=== PATIENT | male | born 1940 | race Hispanic/Latino ===

== ENCOUNTER 2018-08-24 10:14 | Inpatient (IN) | payer MEDICARE ==
[~2018-08-24] VITALS: Ht 170.2 cm; Wt 82.1 kg
--- OUTSIDE RECORDS SUMMARY | 2018-08-24 10:17 | XMS REPORT | Clinical Summary ---
Author Author [facility] Organization [facility] Address Unknown Phone Unavailable Care Team Providers Care Balance Assembler Name Role Phone Provider, Unknown PCP Unavailable Allergies No Known Allergies Medications End Date Status Medication Sig Dispensed Refills Start Date 04/14/2019 Active rosuvastatin (CRESTOR) 40 Take 1 tablet 90 tablet 3 201 MG tablet (40 mg total) 8 by mouth daily. 05/13/2019 Active clopidogrel (PLAVIX) 75 Take 1 tablet 30 tablet 11 201 mg tablet (75 mg total) 8 by mouth daily. Active lisinopril Take 1 tablet 30 tablet 0 (PRINIVIL,ZESTRIL) 10 mg (10 mg total) 8 tablet by mouth daily for 30 days. Active rivaroxaban (XARELTO) 20 Take 1 tablet 90 tablet 3 06/29/201 mg tablet (20 mg total) 8 by mouth daily. Take with food. Stop aspirin when Xarelto started. 06/28/2018 Discontinued rivaroxaban (XARELTO) 20 Take 1 tablet 30 tablet 1 201 mg tablet (20 mg total) 8 by mouth daily. Take with food. Stop aspirin when Xarelto started. 04/14/2018 Discontinued atorvastatin (LIPITOR) 80 Take 1 tablet 30 tablet 0 03/19/201 MG tablet (80 mg total) 8 by mouth nightly for 30 days. 05/12/2018 Discontinued lisinopril Take 1 tablet 30 tablet 0 (PRINIVIL,ZESTRIL) 10 mg (10 mg total) 8 tablet by mouth daily for 30 days. 04/14/2018 Discontinued aspirin 81 mg chewable Chew 1 tablet 30 tablet 0 tablet (81 mg total) 8 daily for 30 days. 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 Cerebrovascular accident (CVA) due to embolism of left middle cerebral 04/14/2018 artery Acute ischemic left MCA stroke 03/14/2018 s/p Mechanical thrombectomy M1 03/14/2018 Renal insufficiency, mild (acute vs chronic) 03/14/2018 Essential hypertension 03/14/2018 Encounters Care Team Description Date Type Specialty Lisset Jade 08/17/2018 Telephone Neurology Lisset Jade 08/10/2018 Telephone Neurology Agatha Loera MD Hyperlipidemia LDL goal <70 07/18/2018 Lab Lab Agatha Loera MD Hyperlipidemia LDL goal <70 (Primary Dx); Cerebrovascular accident (CVA) due to embolism of left middle cerebral artery (HCC); Essential hypertension 07/18/2018 Office Visit Neurology Lisset Jade 06/28/2018 Refill Neurology Lisset Jade 05/13/2018 Telephone Neurology Kenrick Blanchard MD Cv selective coronary angiography [84620 (CPT)] 05/11/2018 Surgery Procedural Cardiology Ronal Earl MD Coronary artery disease involving [place] coronary artery of [place] heart without angina pectoris (Primary Dx); Abnormal cardiovascular stress test 05/11/2018 Hospital Cardiology - Encounter 05/12/2018 Agatha Loera MD Hyperlipidemia LDL goal <70; Cerebrovascular accident (CVA) due to embolism of left middle cerebral artery 04/14/2018 Lab Lab Agatha Loera MD Cerebrovascular accident (CVA) due to embolism of left middle cerebral artery (Primary Dx); Essential hypertension; Hyperlipidemia LDL goal <70; Ataxia due to cerebrovascular disease 04/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 Office Visit Neurology Agatha Loera MD 04/14/2018 Orders Only Neurology Ronal Earl MD Ep loop recorder insertion [54056 (CPT)] 03/18/2018 Surgery Procedural Cardiology Agatha Pop MD 03/14/2018 Anesthesia Radiology Event Agatha Loera MD Patel, Amitkumar Natvarlal, MD 03/14/2018 Hospital Neurology - Encounter 03/19/2018 Wan Chavez MD Acute ischemic left MCA stroke (Primary Dx) 03/14/2018 Emergency Emergency Medicine N/A 03/14/2018 Intake Access after 08/23/2017 Social History Date Tobacco Use Types Packs/Day Years Used Never Smoker Smokeless Tobacco: Never Used Alcohol Use Drinks/Week oz/Week Comments Defer Sex Assigned at Date Recorded Not on file Industry Job Start Date Occupation Not on file Not on file Not on file Travel End Travel History Travel Start No recent travel history available. Last Filed Vital Signs Time Taken Vital Sign Reading 07/18/2018 10:02 AM CIVIL CADD TECHNICIAN Blood Pressure 143/79 07/18/2018 10:02 AM CIVIL CADD TECHNICIAN Pulse 83 05/12/2018 7:27 AM CDT Temperature 36.8 C (98.2 F) 05/12/2018 7:27 AM CDT Respiratory Rate 16 05/12/2018 8:30 AM CDT Oxygen Saturation 98% - Inhaled Oxygen - Concentration 07/18/2018 10:02 AM CIVIL CADD TECHNICIAN Weight 82.6 kg (182 lb) 07/18/2018 10:02 AM CIVIL CADD TECHNICIAN Height 170.2 cm (5' 7") 07/18/2018 10:02 AM CIVIL CADD TECHNICIAN Body Mass Index 28.51 Plan of Treatment Care Team Description Date Type Specialty Agatha Loera MD [address] [place], [place] [id number] 01/23/2019 Office Visit Neurology Health Maintenance Due Date Last Done Comments SHINGLES VACCINES (1 of 1989 2) PNEUMOCOCCAL 2004 POLYSACCHARIDE VACCINE AGE 65 AND OVER PNEUMOCOCCAL-13 2004 INFLUENZA VACCINE 04/06/2018 Implants Device Identifier Shelf Expiration Date Model / Serial / Lot Implanted Type Area Manufactur er [id number] / / Monitor Cardiac Implant Confirm Rx Cardiac N/A: N/A ST MAKI - [id number] Pacemakers MEDICAL Implanted: 03/18/2018 (Quantity not and INC on file) Related Products 01/03/2019 [id number] / / [id number] Device Vasclr Clsr Vasoactive Cardiovasc N/A: N/A Intstnl Peptd 6fr Angio-Seal - [facility] [id number] Implants Implanted: 03/14/2018 (Quantity not on file) [id number] / / Catheter Bln Otw 2.5mm 12mm Cardiovasc N/A: N/A [employer] Sprinter - [id number] [facility] - Implanted: 05/11/2018 (Quantity not Implants VASCULAR on file) [id number] / / Catheter 6fr X 13cm Antonia Plus Central N/A: N/A MICRO Intermediate - [id number] Venous VENTION Implanted: 03/14/2018 (Quantity not Catheters on file) [id number] / / Stent System 3.0 X 18mm Resolute Coronary N/A: N/A [employer] Salvador Otw Coronary - [id number] Stents [place] - Implanted: 05/11/2018 (Quantity not CARDIAC on file) RYHTYM MGMT [id number] / / Stent System 2.75 X 08mm Resolute Coronary N/A: N/A [employer] Spencer Otw Coronary - [id number] Stents [place] - Implanted: 05/11/2018 (Quantity not CARDIAC on file) RYHTYM MGMT [id number] / / Catheter Thrmbtmy Neuron Max 088 Surgical N/A: N/A PENUMBRA Str 6fr 80x4cm - [id number] Implants; INC Implanted: 03/14/2018 (Quantity not Expanders; on file) Extenders; Surgical Wires 02/04/2020 [id number] / / [id number] System Clsr Sut Meditd 6fr Perclose Surgical N/A: N/A HONG Proglide - [id number] Implants; VASCULAR Implanted: 05/11/2018 (Quantity not Expanders; DEVICES on file) Extenders; Surgical Wires 02/04/2020 [id number] / / [id number] System Clsr Sut Meditd 6fr Perclose Surgical N/A: N/A HONG Proglide - [id number] Implants; VASCULAR Implanted: 05/11/2018 (Quantity not Expanders; DEVICES on file) Extenders; Surgical Wires Procedures Comments Procedure Name Priority Date/Time Associated Diagnosis LIPID PANEL Routine 07/18/2018 Hyperlipidemia LDL goal 10:43 AM CIVIL CADD TECHNICIAN <70 HC COMPLETE BLD COUNT Routine 05/12/2018 W/AUTO DIFF 4:48 AM CDT ECG PRE/POST OP Routine 05/12/2018 4:15 AM CDT ZZESTIMATED GFR Routine 05/12/2018 4:00 AM CDT BASIC METABOLIC PANEL Routine 05/12/2018 4:00 AM CDT ECG 12-LEAD Routine 05/11/2018 11:57 AM CDT CONSULT CARDIAC REHAB Routine 05/11/2018 PHASE 1 10:38 AM CDT CV PCI PERCUTANEOUS Routine 05/11/2018 Abnormal cardiovascular CARDIAC ANGIOPLASTY 10:06 AM CDT stress test CV PCI PERCUTANEOUS Routine 05/11/2018 Abnormal cardiovascular CARDIAC ANGIOPLASTY 10:06 AM CDT stress test CV SELECTIVE CORONARY Routine 05/11/2018 Abnormal cardiovascular ANGIOGRAPHY 10:06 AM CDT stress test ACTIVATED CLOTTING TIME Routine 05/11/2018 9:08 AM CDT ACTIVATED CLOTTING TIME Routine 05/11/2018 8:58 AM CDT ECG 12-LEAD STAT 05/11/2018 7:09 AM CDT ZZESTIMATED GFR STAT 05/10/2018 9:23 AM CDT PARTIAL THROMBOPLASTIN STAT 05/10/2018 Atherosclerosis of [place] TIME (PTT) 9:23 AM CDT coronary artery with angina pectoris, unspecified whether [place] or transplanted heart Cerebral infarction due to thrombosis of left middle cerebral artery PROTHROMBIN TIME WITH INR STAT 05/10/2018 Atherosclerosis of [place] 9:23 AM CDT coronary artery with angina pectoris, unspecified whether [place] or transplanted heart Cerebral infarction due to thrombosis of left middle cerebral artery CBC HEMOGRAM STAT 05/10/2018 Atherosclerosis of [place] 9:23 AM CDT coronary artery with angina pectoris, unspecified whether [place] or transplanted heart Cerebral infarction due to thrombosis of left middle cerebral artery BASIC METABOLIC PANEL STAT 05/10/2018 Atherosclerosis of [place] 9:23 AM CDT coronary artery with angina pectoris, unspecified whether [place] or transplanted heart Cerebral infarction due to thrombosis of left middle cerebral artery CBC HEMOGRAM Routine 04/14/2018 Cerebrovascular accident 5:00 PM CDT (CVA) due to embolism of left middle cerebral artery LIPID PANEL Routine 04/14/2018 Hyperlipidemia LDL goal 5:00 PM CDT <70 EP LOOP RECORDER Routine 03/18/2018 INSERTION 11:39 AM CDT CARDIAC MRI STROKE EVAL W Routine 03/17/2018 CONTRAST 9:20 AM CDT POC GLUCOSE Routine 03/16/2018 11:27 AM CDT POC GLUCOSE Routine 03/16/2018 7:36 AM CDT POC GLUCOSE Routine 03/16/2018 4:02 AM CDT ZZESTIMATED GFR Routine 03/16/2018 2:36 AM CDT MAGNESIUM LEVEL Routine 03/16/2018 2:36 AM CDT BASIC METABOLIC PANEL Routine 03/16/2018 2:36 AM CDT CBC HEMOGRAM Routine 03/16/2018 1:55 AM CDT POC GLUCOSE Routine 03/15/2018 11:39 PM CDT URINE DRUGS OF ABUSE Routine 03/15/2018 SCREEN 11:18 PM CDT URINE DRUGS OF ABUSE STAT 03/15/2018 SCREEN 10:30 PM CDT URINALYSIS SCREEN AND STAT 03/15/2018 MICROSCOPY, WITH REFLEX 10:30 PM CDT TO CULTURE URINE CULTURE STAT 03/15/2018 10:30 PM CDT POC GLUCOSE Routine 03/15/2018 7:[address] STROKE BRAIN WO Routine 03/15/2018 CONTRAST 6:33 PM CDT MRI BRAIN WO CONTRAST Routine 03/15/2018 6:20 PM CDT POC GLUCOSE Routine 03/15/2018 4:16 PM CDT VITAMIN B12 LEVEL STAT 03/15/2018 2:00 PM CDT THYROID STIMULATING STAT 03/15/2018 HORMONE 2:00 PM CDT T4, FREE STAT 03/15/2018 2:00 PM CDT SEDIMENTATION RATE STAT 03/15/2018 2:00 PM CDT RHEUMATOID FACTOR STAT 03/15/2018 2:00 PM CDT LIPID PANEL STAT 03/15/2018 2:00 PM CDT HOMOCYSTINE, PLASMA STAT 03/15/2018 2:00 PM CDT HEMOGLOBIN A1C STAT 03/15/2018 2:00 PM CDT FOLATE LEVEL STAT 03/15/2018 2:00 PM CDT C-REACTIVE PROTEIN STAT 03/15/2018 2:00 PM CDT POC GLUCOSE Routine 03/15/2018 11:46 AM CDT ECHOCARDIOGRAM 2D Routine 03/15/2018 COMPLETE W MMODE SPECTRAL 10:05 AM CDT COLOR DOPPLER (98988) POC GLUCOSE Routine 03/15/2018 7:40 AM CDT POC GLUCOSE Routine 03/15/2018 3:44 AM CDT ZZESTIMATED GFR Routine 03/15/2018 1:12 AM CDT TYPE AND SCREEN Routine 03/15/2018 1:12 AM CDT BASIC METABOLIC PANEL Routine 03/15/2018 1:12 AM CDT HC COMPLETE BLD COUNT Routine 03/15/2018 W/AUTO DIFF 1:12 AM CDT POC GLUCOSE Routine 03/15/2018 12:13 AM CDT POC GLUCOSE Routine 03/14/2018 10:20 PM CDT IR 3D RECON SLICES Routine 03/14/2018 SNAPSHOTS RDMPS 9:21 PM CDT IR PERQ ART M-THROMBECT STAT 03/14/2018 NFS 9:21 PM CDT XR CHEST 1 VW PORTABLE STAT 03/14/2018 6:[address] ANGIOGRAM NECK W WO STAT 03/14/2018 CONTRAST 6:[address] ANGIOGRAM HEAD W WO STAT 03/14/2018 CONTRAST 6:07 PM CDT POC GLUCOSE Routine 03/14/2018 5:39 PM CDT ECG 12-LEAD STAT 03/14/2018 5:[address] STROKE BRAIN WO STAT 03/14/2018 CONTRAST 5:23 PM CDT ECG ED PRELIMINARY Routine 03/14/2018 INTERPRETATION 5:11 PM CDT [facility], E/M Routine 03/14/2018 30-74 MINUTES 5:11 PM CDT PROTHROMBIN TIME WITH INR STAT 03/14/2018 5:10 PM CDT ZZESTIMATED GFR STAT 03/14/2018 5:10 PM CDT TROPONIN STAT 03/14/2018 5:10 PM CDT COMPREHENSIVE METABOLIC STAT 03/14/2018 PANEL 5:10 PM CDT PARTIAL THROMBOPLASTIN STAT 03/14/2018 TIME (PTT) 5:10 PM CDT HC COMPLETE BLD COUNT STAT 03/14/2018 W/AUTO DIFF 5:10 PM CDT after 08/23/2017 Results * Lipid panel (07/18/2018 10:43 AM CIVIL CADD TECHNICIAN) Only the most recent of 3 results within the time period is included. Cholesterol 122 <200 mg/dL [facility] Triglycerides 197 (H) <150 mg/dL [facility] HDL cholesterol 38 (L) >40 mg/dL [facility] LDL cholesterol 62Comment: Result obtained by <100 mg/dL [facility] direct LDL measurement [facility] Lipid panel SeeBelow [facility] interpretation Comment: [facility]OSPITAL Total Cholesterol (mg/dL) <200 Desirable 200-239Borderline -high >=240High Triglycerides (mg/dL) <150 Normal 150-199Borderline -high 200-499High >=500Very high HDL Cholesterol (mg/dL) <40Low (male) <40Low (female) LDL Cholesterol (mg/dL) <100 Optimal 100-129Near or above optimal 130-159Borderline -high 160-189High >=190Very high Risk Catergories that modify LDL goals. Risk Catergories LDL goal (mg/dL) CHD and CHD risk equivalent<100 (10-year risk >20%) Multiple (2+) risk factors <130 (10-year risk=<20%) 0-1 risk factors <160 (<10-year risk) Defining levels of lipids in metabolic syndrome Triglycerides >=150 mg/dL HDL Cholesterol Men <40 mg/dL Women <40 mg/dL Non-HDL cholesterol is a second target for therapy in persons with high triglycerides (>=200 mg/dL) Specimen Plasma specimen Performing Organization Address City/State/[place] [address] PATHOLOGY AND GENOMIC MEDICINE [address] * CBC with platelet and differential (05/12/2018 4:48 AM CDT) Only the most recent of 3 results within the time period is included. WBC 6.04 4.50 - 11.00 k/uL [facility] DEPARTMENT OF PATHOLOGY AND GENOMIC MEDICINE RBC 4.15 (L) 4.40 - 6.00 m/uL [facility] DEPARTMENT OF PATHOLOGY AND GENOMIC MEDICINE HGB 12.4 (L) 14.0 - 18.0 g/dL [facility] DEPARTMENT OF PATHOLOGY AND GENOMIC MEDICINE HCT 37.8 (L) 41.0 - 51.0 % [facility] DEPARTMENT OF PATHOLOGY AND GENOMIC MEDICINE MCV 91.1 82.0 - 100.0 fL [facility] DEPARTMENT OF PATHOLOGY AND GENOMIC MEDICINE MCH 29.9 27.0 - 34.0 pg [facility] DEPARTMENT OF PATHOLOGY AND GENOMIC MEDICINE MCHC 32.8 31.0 - 37.0 g/dL [facility] DEPARTMENT OF PATHOLOGY AND GENOMIC MEDICINE RDW - SD 45.8 37.0 - 55.0 fL [facility] DEPARTMENT OF PATHOLOGY AND GENOMIC MEDICINE MPV 10.0 8.8 - 13.2 fL [facility] DEPARTMENT OF PATHOLOGY AND GENOMIC MEDICINE Platelet count 176 150 - 400 k/uL [facility] DEPARTMENT OF PATHOLOGY AND GENOMIC MEDICINE Nucleated RBC 0.00 /100 WBC [facility] DEPARTMENT OF PATHOLOGY AND GENOMIC MEDICINE Neutrophils 62.5 39.0 - 69.0 % [facility] DEPARTMENT OF PATHOLOGY AND GENOMIC MEDICINE Lymphocytes 25.2 25.0 - 45.0 % [facility] DEPARTMENT OF PATHOLOGY AND GENOMIC MEDICINE Monocytes 9.3 0.0 - 10.0 % [facility] DEPARTMENT OF PATHOLOGY AND GENOMIC MEDICINE Eosinophils 2.2 0.0 - 5.0 % [facility] DEPARTMENT OF PATHOLOGY AND GENOMIC MEDICINE Basophils 0.3 0.0 - 1.0 % [facility] DEPARTMENT OF PATHOLOGY AND GENOMIC MEDICINE Immature granulocytes 0.5Comment: "Immature 0.0 - 1.0 % [facility] DEPARTMENT OF granulocytes" (promyelocytes, PATHOLOGY AND myelocytes, metamyelocytes) GENOMIC MEDICINE Specimen Blood Performing Organization Address City/[facility] Phone Number [address] [address] PATHOLOGY AND GENOMIC MEDICINE * ECG Pre/Post Op (05/12/2018 4:15 AM CDT) Ventricular rate 56 [facility] MUSE Atrial rate 56 [facility] MUSE VA interval 152 [facility] QRSD interval 112 [facility] QT interval 422 [facility] QTC interval 407 [facility] MUSE QRS axis 1 -47 [facility] T wave axis -3 [facility] MUSE EKG impression Sinus bradycardia-Incomplete [facility] MUSE right bundle branch block-Left anterior fascicular block-Minimal voltage criteria for LVH, may be normal variant-Septal infarct (cited on or before 14-MAR-2018)-Abnormal ECG-In automated comparison with ECG of 11-MAY-2018 11:57,-No significant change was found- Performing Organization Address City/[facility] Cent[facility]ode Phone Number [facility] [address] [place] [address] * Estimated GFR (05/12/2018 4:00 AM CDT) Only the most recent of 5 results within the time period is included. GFR Non Af Amer 65 mL/min/1.73 m2 [facility] DEPARTMENT OF PATHOLOGY AND GENOMIC MEDICINE GFR Af Amer 78 mL/min/1.73 m2 [facility] DEPARTMENT OF Comment: PATHOLOGY AND Chronic kidney disease: <60 GENOMIC MEDICINE mL/min/1.73m2 Kidney failure: <15 mL/min/1.73m2 The estimated GFR is calculated from the IDMS-traceable Modification of Diet in Renal Disease Equation. The accuracy of the calculation is poor when the creatinine is normal. Calculated values >90 mL/min/1.73m2 are not reported. This equation has not been validated in children (<18 years), women, the elderly (>70 years), or ethnic groups other than Caucasians and Americans. Specimen Plasma specimen Performing Organization Address City/[facility] [place] [address] PATHOLOGY [facility] [employer] MEDICINE * Basic metabolic panel (05/12/2018 4:00 AM CDT) Only the most recent of 4 results within the time period is included. Sodium 139 135 - 148 mEq/L [facility] DEPARTMENT OF PATHOLOGY AND GENOMIC MEDICINE Potassium 4.1 3.5 - 5.0 mEq/L [facility] DEPARTMENT OF PATHOLOGY AND GENOMIC MEDICINE Chloride 105 98 - 112 mEq/L [facility] DEPARTMENT OF PATHOLOGY AND GENOMIC MEDICINE CO2 25 24 - 31 mEq/L [facility] DEPARTMENT OF PATHOLOGY AND GENOMIC MEDICINE Anion gap 9@ANIO 7 - 15 mEq/L [facility] DEPARTMENT OF PATHOLOGY AND GENOMIC MEDICINE BUN 16 8 - 23 mg/dL [facility] DEPARTMENT OF PATHOLOGY AND GENOMIC MEDICINE Creatinine 1.1 0.7 - 1.2 mg/dL [facility] DEPARTMENT OF PATHOLOGY AND GENOMIC MEDICINE Glucose 130 (H) 65 - 99 mg/dL [facility] DEPARTMENT OF PATHOLOGY AND GENOMIC MEDICINE Calcium 8.9 8.8 - 10.2 mg/dL [facility] DEPARTMENT OF PATHOLOGY AND GENOMIC MEDICINE Specimen Plasma specimen Performing Organization Address City/[facility] [place] [address] PATHOLOGY AND [employer] MEDICINE * ECG 12 lead (05/11/2018 11:57 AM CDT) Only the most recent of 3 results within the time period is included. Ventricular rate 50 [facility] Atrial rate 50 [facility] VA interval 172 [facility] QRSD interval 118 [facility] QT interval 450 [facility] QTC interval 410 [facility] P axis 1 63 [facility] QRS axis 1 -45 [facility] T wave axis 14 [facility] EKG impression Sinus bradycardia-Left [facility] anterior fascicular block-Left ventricular hypertrophy with QRS widening-Cannot rule out Septal infarct (cited on or before 14-MAR-2018)-T wave abnormality, consider lateral ischemia-Abnormal ECG-In automated comparison with ECG of 11-MAY-2018 07:09,-T wave inversion now evident in Anterior leads- Performing Organization Address City/State/Zipcode Phone Number [facility] [address] [place] [address] * Cv director of cardiac cath lab procedure (05/11/2018 10:06 AM CDT) Narrative Performed At [facility] Successful PCI to mid LAD with 3.0x18 mm Resolute Spencer BERNA followed by 2.75x8 mm Resolute Spencer BERNA to distal edge for small edge dissection See dictated op report for further details TITLE OF OPERATION: Percutaneous coronary intervention with medicated stent to the proximal and mid left anterior descending coronary artery. SURGEON: Dr. Arpit Blanchard. [employer] [employer] CONSULTANT: Dr. Agatha Beckham. 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 2.Abnormal cardiac functional study. 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 2.Abnormal cardiac functional study. ANESTHESIA: Conscious sedation with Versed and fentanyl. ESTIMATED BLOOD LOSS: 20 mL. COMPLICATIONS: None. OPERATIVE COURSE: After informed consent was obtained from the patient and with appropriate time-out procedures called, the patient was originally taken to the cardiac catheterization laboratory by my partner, Dr. Ronal Earl.Dr. aErl performed diagnostic coronary angiography using 5-Kyrgyz system.Once accomplished, I was called to the director of cardiac cath lab to assess for the possibility of percutaneous intervention.The pertinent findings of the catheterization were that the patient had a 90% to 95% stenosis of the LAD immediately after the take off of a medium sized diagonal.The LAD was of the wrap around variety.There was no other hemodynamically significant disease and given his functional study, this was felt to be the culprit stenosis.Accordingly and specifically because this had been discussed with the patient previously, we proceeded with intervention. The 5-Kyrgyz system was exchanged for a 6-Kyrgyz sheath.The patient received bivalirudin with subsequent ACT greater than 230 seconds prior to wire passage. The guiding catheter chosen was a 6-Kyrgyz XB LAD 3.5-sidehole variety. Preprocedural angiograms were taken in two views.A 0.014 extra support exchange length wire was then inserted across the stenosis and the lesion, predilated with a 2.5 x 12 mm balloon.The lesion was then successfully stented with a 3.0 x 18 mm Resolute Spencer medicated stent.The stent was properly placed, but postprocedural angiogram suggested a nonocclusive but nonetheless threatening dissection eccentrically in the superior aspect of the vessel at the distal end of the stenosis.Thus, a second stent, specifically a 2.75 x 8 mm Resolute Salvador stent was placed at the distal end of the first stent.The second stent corrected the problem with the dissection and provided full fit apposition to the vessel wall.Postprocedural angiograms confirmed proper stent placement. We did, however, postdilate with a 3 x 12 mm noncompliant balloon.The end result was no residual stenosis, no dissection and slightly less than MANDY III flow.This improved with 200 mcg of intracoronary sodium nitroprusside. At that point, I terminated the procedure and elected to not utilize a closure device. He was taken off catheterization table and transported to the PACU for sheath removal when ACT is less than 170 seconds.He was already admitted to the hospital and will be followed by Dr. Earl postoperatively.Overall, he tolerated the procedure well. Performing Organization Address [facility] Phone Number [facility] [address] [place] [address] * Cv director of cardiac cath lab procedure (05/11/2018 10:06 AM CDT) Narrative Performed At [facility] LM: normal LAD: mid 95% stenosis, first diagonal proximal 50% Ramus: no significant stenosis LCX: no significant stenosis RCA: mild plaque Performing Organization Address [facility] Phone Number [facility] [address] [place] [address] * Activated clotting time (05/11/2018 9:08 AM CDT) Only the most recent of 2 results within the time period is included. Activated clotting time 426 (H) 96 - 152 sec [facility] DEPARTMENT OF Comment: PATHOLOGY AND Meter ID: [id number] GENOMIC MEDICINE Microwave Radio Technician: Norberto Carlson Performing Organization Address [facility]ercode Phone Number [facility] DEPARTMENT OF [address] [place] [address] PATHOLOGY AND GENOMIC MEDICINE * Partial thromboplastin time, activated (05/10/2018 9:23 AM CDT) Only the most recent of 2 results within the time period is included. PTT 35.3 23.0 - 36.0 sec [facility] DEPARTMENT OF Comment: PATHOLOGY AND PTT therapeutic range for [facility] MEDICINE unfractionated heparin is 61.0-112.0 seconds which corresponds to Anti-Xa 0.3-0.7 U/ml. Specimen Blood Performing Organization Address [facility] Phone Number [address] [place] [address] PATHOLOGY AND GENOMIC MEDICINE * Prothrombin time with INR (05/10/2018 9:23 AM CDT) Only the most recent of 2 results within the time period is included. Prothrombin time 17.7 (H) 12.0 - 15.0 sec [facility] DEPARTMENT OF PATHOLOGY AND GENOMIC MEDICINE INR 1.4 [facility] [facility] DEPARTMENT OF Comment: PATHOLOGY AND The International Normalized [facility] MEDICINE Ratio (INR) is a therapeutic monitoring tool for patients who are stable on oral anticoagulant therapy. An INR of 2.0-3.0 is suggested for deep vein thrombosis/pulmonary embolism. Specimen Blood Performing Organization Address [facility] Phone Number [address] [place] [address] PATHOLOGY AND GENOMIC MEDICINE * CBC hemogram (05/10/2018 9:23 AM CDT) Only the most recent of 3 results within the time period is included. WBC 5.74 4.50 - 11.00 k/uL [facility] DEPARTMENT OF PATHOLOGY AND GENOMIC MEDICINE RBC 4.65 4.40 - 6.00 m/uL [facility] DEPARTMENT OF PATHOLOGY AND GENOMIC MEDICINE HGB 13.7 (L) 14.0 - 18.0 g/dL [facility] DEPARTMENT OF PATHOLOGY AND GENOMIC MEDICINE HCT 41.2 41.0 - 51.0 % [facility] DEPARTMENT OF PATHOLOGY AND GENOMIC MEDICINE MCV 88.6 82.0 - 100.0 fL [facility] DEPARTMENT OF PATHOLOGY AND GENOMIC MEDICINE MCH 29.5 27.0 - 34.0 pg [facility] DEPARTMENT OF PATHOLOGY AND GENOMIC MEDICINE MCHC 33.3 31.0 - 37.0 g/dL [facility] DEPARTMENT OF PATHOLOGY AND GENOMIC MEDICINE RDW - SD 43.8 37.0 - 55.0 fL [facility] PATHOLOGY AND GENOMIC MEDICINE MPV 9.8 8.8 - 13.2 fL [facility] DEPARTMENT OF PATHOLOGY AND GENOMIC MEDICINE Platelet count 202 150 - 400 k/uL [facility] DEPARTMENT OF PATHOLOGY AND GENOMIC MEDICINE Nucleated RBC 0.00 /100 WBC [facility] DEPARTMENT OF PATHOLOGY AND GENOMIC MEDICINE Specimen Blood Performing Organization Address City/[facility] Phone Number [place] [phone] [place] [address] PATHOLOGY AND GENOMIC MEDICINE * Cv electrophysiology procedure (03/18/2018 11:39 AM CDT) Narrative Performed At [employer] Successful loop recorder implant. Performing Organization Address City/[facility]/Zipcode Phone Number [employer] [address] [place] [address] * Cardiac mri stroke eval w contrast (03/17/2018 9:20 AM CDT) Narrative Performed At [facility] [employer] CMR Report Name:DES CHONG :1940 Scan Date: 2018-03-17 07:42:57 Electronically signed by Gavino Gonzalez M.D. 15:37:59 VITALS HEIGHT/WEIGHT --------- HEIGHT:67.00 in 170.18 cm WEIGHT:187.00 lbs 84.82 kgs BSA/BP --------- BSA:1.97 m^2 SYSTOLIC BP:120 mmHg DIASTOLIC BP:63 mmHg HEART RATE/RHYTHM --------- BASELINE HR:55 BPM HEART RHYTHM:Other SB SUMMARY LEFT VENTRICLE: LV wall thickness is normal. LV cavity size is normal. LV systolic function is regionally impaired. Quantitative LVEF 52%. There is no LV mass/thrombus. VIABILITY: There is limited transmural MA of the proximal to mid LAD territory. LV infarct/scar size is 19%. RIGHT VENTRICLE: RV wall thickness is normal. RV cavity size is normal. RV systolic function is normal. Quantitative RVEF 57%. There is no RV mass/thrombus. ATRIAL SEPTUM: There is lipomatous hypertrophy of the interatrial septum. The atrial septum is intact. A patent foramen ovale or small secundum atrial septal defect cannot be ruled out. LEFT ATRIUM: LA is mildly enlarged. There is no LA mass/thrombus. RIGHT ATRIUM: RA is mildly enlarged. There is no RA mass/thrombus. PERICARDIUM: Pericardium is normal. There is no pericardial effusion. There are no signs of increased intrapericardial pressures. PLEURAL EFFUSION: There is no pleural effusion. AORTIC VALVE: Aortic valve is trileaflet. There is no aortic regurgitation. There is no aortic stenosis. MITRAL VALVE: Mitral valve leaflets are normal. There is mild mitral valve calcification. There is no mitral regurgitation. There is no mitral stenosis. TRICUSPID VALVE: Tricuspid valve leaflets are normal. There is trivial tricuspid regurgitation. There is no tricuspid stenosis. PULMONIC VALVE: Pulmonic valve leaflets are normal. There is no pulmonic regurgitation. There is no pulmonic stenosis. AORTIC ROOT: The aortic root is normal. in size. CHEST: The thoracic aorta is of normal caliber without stenosis, aneurysm, or dissection. ABDOMEN: A portion of the infrarenal aorta is mildly ectatic. VENOUS: Normal pulmonary venous anatomy. OTHER FINDINGS: Hiatal hernia present. FINAL IMPRESSION: A. 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 NO INTRACARDIAC THROMBUS D. NO ASD/VSD/PFO CORE EXAM MEASUREMENTS --------- VOLUMETRIC ANALYSIS . . || | LV | Reference| RV | Reference| +------+-------+------+ +------+ + | EDV| ml|135 |(114-183) |123 |(102-193) | | ESV| ml| 65 |(26-69) | 53 |(16-73) | | CO | L/min | 3.78 || 3.78 || | MASS | g |114 |(110-175) ||| | SV | ml| 70 |(77-124)| 70 |(71-136)| | EF | % | 52 |(59-77) | 57 |(57-83) | '------+-------+------+ +------+ ' CARDIAC OUTPUT HR:54 BPM LV DIMENSIONS WALL THICKNESS - ANTEROSEPTAL:0.9 cm WALL THICKNESS - INFEROLATERAL:0.9 cm LV JOSY:5.3 cm LV ESD:3.5 cm LA DIMENSIONS (LV SYSTOLE) DIAMETER:4.3 cm AREA - 2 CHAMBER:23 cm^2 LENGTH - 2 CHAMBER:5.2 cm AREA - 4 CHAMBER:26 cm^2 LENGTH - 4 CHAMBER:5.9 cm VOLUME:98 ml AORTIC ROOT DIMENSIONS ANNULUS:2.1 cm SINUS OF VALSALVA:2.9 cm SINOTUBULAR JUNCTION:2.5 cm EXTRACELLULAR VOLUME MEASUREMENT HEMATOCRIT:37.7 % HEMATOCRIT DATE:2018-03-16 00:00:00 17 SEGMENT --------- . . | Segments | Wall Motion| Hyperenhancement | Stress Perfusion | Interpretation | + + + + +----- + | Base Anterior| Normal/Hyper | None ||| | Base Anteroseptal| Normal/Hyper | None ||| | Base Inferoseptal| Normal/Hyper | None ||| | Base Inferior| Normal/Hyper | None ||| | Base Inferolateral | Normal/Hyper | None ||| | Base Anterolateral | Normal/Hyper | None ||| | Mid Anterior | Normal/Hyper | None ||| | Mid Anteroseptal | Severe Hypo| 26-50% || Sub-Endo MA| | Mid Inferoseptal | Severe Hypo| 51-75% || Sub-Endo MA| | Mid Inferior | Normal/Hyper | None ||| | Mid Inferolateral| Normal/Hyper | None ||| | Mid Anterolateral| Normal/Hyper | None ||| | Apical Anterior| Normal/Hyper | 51-75% || Sub-Endo MA| | Apical Septal| Akinetic | 51-75% || Sub-Endo MA| | Apical Inferior| Akinetic | 26-50% ||| | Apical Lateral | Normal/Hyper | None ||| | [place] | Akinetic | 51-75% || Sub-Endo MA| + + + + +----- + | RV Segments| Wall Motion| Hyperenhancement | Stress Perfusion | Interpretation | + + + + +----- + | RV Basal Anterior| Normal/Hyper | None ||| | RV Basal Inferior| Normal/Hyper | None ||| | RV Mid | Normal/Hyper | None ||| | RV Apical| Normal/Hyper | None ||| ' + + + +----- ' FINDINGS INFARCT/SCAR SIZE:19 % SCAN INFO GENERAL --------- CONTRAST AGENT TYPE:[employer] LOT NUMBER:[id number] EXPIRATION DATE:2019-03-05 00:00:00 VOLUME ADMINISTERED:25 ml DOSAGE FOR 0.5M:0.15 mmol/kg SERUM CREATININE:1.1 sCr GFR:68.81 ml/min/1.73m^2 CREATININE DATE:2018-03-16 00:00:00 SEDATION SEDATION USED?:No PULSE SEQUENCE PULSE SEQUENCES:Single-Shot SSFP, IR GRE - Segmented, IR GRE - Single Shot, IR SSFP - Single Shot, Single Shot BB [place], SSFP Cine, Phase Contrast Velocity Mapping, 3D MRA w and w/o contrast SETUP TYPE:Both INPATIENT:Yes INCOMPLETE SCAN:No REASON(S) FOR SCAN:Stroke Evaluation REFERRING PHYSICIAN:WAN CHAVEZ TECHNOLOGIST:RT Nella[ , ]Dee Hoskins BILLING Patient Account [id number] CPT Codes 72624, 79486, 60466 ICD10 Codes I63.9, I25.5 Report generated by [employer], a product of [employer] Procedure Note Interface, Radiology Results In - 03/17/2018 3:38 PM CDT Hung Mcgee CMR Report Name: DES CHONG : 1940 Scan Date: 2018-03-17 07:42:57 Electronically signed by Gavino Gonzalez M.D. 15:37:59 VITALS HEIGHT/WEIGHT HEIGHT: 67.00 in 170.18 cm WEIGHT: 187.00 lbs 84.82 kgs BSA/BP BSA: 1.97 m^2 SYSTOLIC BP: 120 mmHg DIASTOLIC BP: 63 mmHg HEART RATE/RHYTHM BASELINE HR: 55 BPM HEART RHYTHM: Other SB SUMMARY LEFT VENTRICLE: LV wall thickness is normal. LV cavity size is normal. LV systolic function is regionally impaired. Quantitative LVEF 52%. There is no LV mass/thrombus. VIABILITY: There is limited transmural MA of the proximal to mid LAD territory. LV infarct/scar size is 19%. RIGHT VENTRICLE: RV wall thickness is normal. RV cavity size is normal. RV systolic function is normal. Quantitative RVEF 57%. There is no RV mass/thrombus. ATRIAL SEPTUM: There is lipomatous hypertrophy of the interatrial septum. The atrial septum is intact. A patent foramen ovale or small secundum atrial septal defect cannot be ruled out. LEFT ATRIUM: LA is mildly enlarged. There is no LA mass/thrombus. RIGHT ATRIUM: RA is mildly enlarged. There is no RA mass/thrombus. PERICARDIUM: Pericardium is normal. There is no pericardial effusion. There are no signs of increased intrapericardial pressures. PLEURAL EFFUSION: There is no pleural effusion. AORTIC VALVE: Aortic valve is trileaflet. There is no aortic regurgitation. There is no aortic stenosis. MITRAL VALVE: Mitral valve leaflets are normal. There is mild mitral valve calcification. There is no mitral regurgitation. There is no mitral stenosis. TRICUSPID VALVE: Tricuspid valve leaflets are normal. There is trivial tricuspid regurgitation. There is no tricuspid stenosis. PULMONIC VALVE: Pulmonic valve leaflets are normal. There is no pulmonic regurgitation. There is no pulmonic stenosis. AORTIC ROOT: The aortic root is normal. in size. CHEST: The thoracic aorta is of normal caliber without stenosis, aneurysm, or dissection. ABDOMEN: A portion of the infrarenal aorta is mildly ectatic. VENOUS: Normal pulmonary venous anatomy. OTHER FINDINGS: Hiatal hernia present. FINAL IMPRESSION: A. 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 NO INTRACARDIAC THROMBUS D. NO ASD/VSD/PFO CORE EXAM MEASUREMENTS VOLUMETRIC ANALYSIS . . | | | LV | Reference | RV | Reference | +------+-------+------+ +------+ + | EDV | ml | 135 | (114-183) | 123 | (102-193) | | ESV | ml | 65 | (26-69) | 53 | (16-73) | | CO | L/min | 3.78 | | 3.78 | | | MASS | g | 114 | (110-175) | | | | SV | ml | 70 | (77-124) | 70 | (71-136) | | EF | % | 52 | (59-77) | 57 | (57-83) | '------+-------+------+ +------+ ' CARDIAC OUTPUT HR: 54 BPM LV DIMENSIONS WALL THICKNESS - ANTEROSEPTAL: 0.9 cm WALL THICKNESS - INFEROLATERAL: 0.9 cm LV JOSY: 5.3 cm LV ESD: 3.5 cm LA DIMENSIONS (LV SYSTOLE) DIAMETER: 4.3 cm AREA - 2 CHAMBER: 23 cm^2 LENGTH - 2 CHAMBER: 5.2 cm AREA - 4 CHAMBER: 26 cm^2 LENGTH - 4 CHAMBER: 5.9 cm VOLUME: 98 ml AORTIC ROOT DIMENSIONS ANNULUS: 2.1 cm SINUS OF VALSALVA: 2.9 cm SINOTUBULAR JUNCTION: 2.5 cm EXTRACELLULAR VOLUME MEASUREMENT HEMATOCRIT: 37.7 % HEMATOCRIT DATE: 2018-03-16 00:00:00 17 SEGMENT . . | Segments | Wall Motion | Hyperenhancement | Stress Perfusion | Interpretation | + + + + + + | Base Anterior | Normal/Hyper | None | | | | Base Anteroseptal | Normal/Hyper | None | | | | Base Inferoseptal | Normal/Hyper | None | | | | Base Inferior | Normal/Hyper | None | | | | Base Inferolateral | Normal/Hyper | None | | | | Base Anterolateral | Normal/Hyper | None | | | | Mid Anterior | Normal/Hyper | None | | | | Mid Anteroseptal | Severe Hypo | 26-50% | | Sub- Endo MA | | Mid Inferoseptal | Severe Hypo | 51-75% | | Sub- Endo MA | | Mid Inferior | Normal/Hyper | None | | | | Mid Inferolateral | Normal/Hyper | None | | | | Mid Anterolateral | Normal/Hyper | None | | | | Apical Anterior | Normal/Hyper | 51-75% | | Sub- Endo MA | | Apical Septal | Akinetic | 51-75% | | Sub- Endo MA | | Apical Inferior | Akinetic | 26-50% | | | | Apical Lateral | Normal/Hyper | None | | | | [place] | Akinetic | 51-75% | | Sub- Endo MA | + + + + + + | RV Segments | Wall Motion | Hyperenhancement | Stress Perfusion | Interpretation | + + + + + + | RV Basal Anterior | Normal/Hyper | None | | | | RV Basal Inferior | Normal/Hyper | None | | | | RV Mid | Normal/Hyper | None | | | | RV Apical | Normal/Hyper | None | | | ' + + + + ' FINDINGS INFARCT/SCAR SIZE: 19 % SCAN INFO GENERAL CONTRAST AGENT TYPE: [employer] LOT NUMBER: [id number] EXPIRATION DATE: 2019-03-05 00:00:00 VOLUME ADMINISTERED: 25 ml DOSAGE FOR 0.5M: 0.15 mmol/kg SERUM CREATININE: 1.1 sCr GFR: 68.81 ml/min/1.73m^2 CREATININE DATE: 2018-03-16 00:00:00 SEDATION SEDATION USED?: No PULSE SEQUENCE PULSE SEQUENCES: Single-Shot SSFP, IR GRE - Segmented, IR GRE - Single Shot, IR SSFP - Single Shot, Single Shot BB [place], SSFP Cine, Phase Contrast Velocity Mapping, 3D MRA w and w/o contrast SETUP TYPE: Both INPATIENT: Yes INCOMPLETE SCAN: No REASON(S) FOR SCAN: Stroke Evaluation REFERRING PHYSICIAN: WAN CHAVEZ TECHNOLOGIST: Mega Andujar, RT[ , ]Dee Hoskins BILLING Patient Account [id number] CPT Codes 18729, 01202, 12640 ICD10 Codes I63.9, I25.5 Report generated by [employer], a product of [employer] Performing Organization Address City/State/Zipcode Phone Number [facility] [address] [place] [address] * POC glucose (03/16/2018 11:27 AM CDT) Only the most recent of 12 results within the time period is included. POC glucose 154 (H) 65 - 99 mg/dL [facility] DEPARTMENT OF Comment: PATHOLOGY AND [facility] Notified RN [employer] MEDICINE Meter ID: [id number] Microwave Radio Technician: Sujit Johnsonena Performing Organization Address [facility] [place] [address] PATHOLOGY AND GENOMIC MEDICINE * Magnesium level (03/16/2018 2:36 AM CDT) Magnesium 2.1 1.6 - 2.4 mg/dL [facility] DEPARTMENT OF PATHOLOGY AND GENOMIC MEDICINE Specimen Plasma specimen Performing Organization Address [facility] [place] [address] PATHOLOGY AND GENOMIC MEDICINE * Urine drugs of abuse screen (03/15/2018 11:18 PM CDT) Only the most recent of 2 results within the time period is included. Amphetamine screen, urine Negative [facility] DEPARTMENT OF PATHOLOGY AND GENOMIC MEDICINE Barbiturate screen, urine Negative [facility] DEPARTMENT OF PATHOLOGY AND GENOMIC MEDICINE Benzodiazepine screen, Negative [facility] DEPARTMENT OF urine PATHOLOGY AND GENOMIC MEDICINE Cannabinoid screen, urine Negative [facility] DEPARTMENT OF PATHOLOGY AND GENOMIC MEDICINE Cocaine screen, urine Negative [facility] DEPARTMENT OF PATHOLOGY AND GENOMIC MEDICINE Methadone metabolite Negative [facility] DEPARTMENT OF (EDDP), urine PATHOLOGY AND GENOMIC MEDICINE Opiates screen, urine Negative [facility] DEPARTMENT OF PATHOLOGY AND GENOMIC MEDICINE Oxycodone screen, urine Negative [facility] DEPARTMENT OF PATHOLOGY AND GENOMIC MEDICINE Phencyclidine screen, Negative [facility] DEPARTMENT OF urine PATHOLOGY AND GENOMIC MEDICINE Tricyclic screen, urine Negative [facility] DEPARTMENT OF Comment: PATHOLOGY AND Drug screen minimum GENOMIC MEDICINE concentration of detectability Amphetamines 1000 ng/mL Barbiturates 200 ng/mL Benzodiazepines 300 ng/mL Cocaine 300 ng/mL Methadone 300 ng/mL Opiates 300 ng/mL Oxycodone 300 ng/mL Phencyclidine 25 ng/mL Cannabinoids 50 ng/mL Tricyclics 1000 ng/mL Negative test results indicates presumptive evidence of lack of clinically significant drug concentration in this urine specimen. Positive test results are presumptive evidence of clinically significant drug concentration in this urine specimen. Testing performed for medical purposes only. Specimen Urine Performing Organization Address [facility] [place] [address] PATHOLOGY AND GENOMIC MEDICINE * Urinalysis screen and microscopy, with reflex to culture (03/15/2018 10:30 PM CDT) Specimen site Clean catch [facility] DEPARTMENT OF PATHOLOGY AND GENOMIC MEDICINE Color, UA Straw [facility] DEPARTMENT OF PATHOLOGY AND GENOMIC MEDICINE Appearance, UA Clear [facility] DEPARTMENT OF PATHOLOGY AND GENOMIC MEDICINE Specific gravity, UA 1.018 1.001 - 1.035 [facility] DEPARTMENT OF PATHOLOGY AND GENOMIC MEDICINE pH, UA 6.0 5.0 - 8.5 [facility] DEPARTMENT OF PATHOLOGY AND GENOMIC MEDICINE Protein, UA Negative Negative [facility] DEPARTMENT OF PATHOLOGY AND GENOMIC MEDICINE Glucose, UA Negative Negative [facility] DEPARTMENT OF PATHOLOGY AND GENOMIC MEDICINE Ketones, UA Negative Negative [facility] DEPARTMENT OF PATHOLOGY AND GENOMIC MEDICINE Bilirubin, UA Negative Negative [facility] DEPARTMENT OF PATHOLOGY AND GENOMIC MEDICINE Blood, UA Negative Negative [facility] DEPARTMENT OF PATHOLOGY AND GENOMIC MEDICINE Nitrite, UA Negative Negative [facility] DEPARTMENT OF PATHOLOGY AND GENOMIC MEDICINE Urobilinogen, UA <2.0 <2.0 [facility] DEPARTMENT OF PATHOLOGY AND GENOMIC MEDICINE Leukocyte esterase, UA Negative Negative [facility] DEPARTMENT OF PATHOLOGY AND GENOMIC MEDICINE Epithelial cells, UA <1 /HPF [facility] DEPARTMENT OF PATHOLOGY AND GENOMIC MEDICINE WBC, UA None seen 0 - 1 /HPF [facility] DEPARTMENT OF PATHOLOGY AND GENOMIC MEDICINE RBC, UA 1 0 - 5 /HPF [facility] DEPARTMENT OF PATHOLOGY AND GENOMIC MEDICINE Bacteria, UA None seen None seen [facility] DEPARTMENT OF PATHOLOGY AND GENOMIC MEDICINE Yeast, UA None seen [facility] DEPARTMENT OF PATHOLOGY AND GENOMIC MEDICINE Yeast with pseudohyphae, None seen [facility] DEPARTMENT OF UA PATHOLOGY AND GENOMIC MEDICINE Specimen Urine Performing Organization Address City/[facility]/Zipcode Phone Number [place] [phone] PATHOLOGY AND GENOMIC MEDICINE * Urine culture (03/15/2018 10:30 PM CDT) Urine culture SEE COMMENTComment: [facility] DEPARTMENT OF Bacteriuria screen negative. PATHOLOGY AND GENOMIC MEDICINE Performing Organization Address City/[facility]/Zipcode Phone Number [place] [phone] PATHOLOGY AND GENOMIC MEDICINE * CT Stroke Brain Wo Contrast (03/15/2018 6:33 PM CDT) Only the most recent of 2 results within the time period is included. Narrative Performed At EXAMINATION:CT STROKE BRAIN WO CONTRAST [facility] CLINICAL HISTORY:[id number] HR POST TPA IMAGING COMPARISON:MRI of the brain dated March 15, [address] images were acquired using low-dose technique with automated exposure control. IMPRESSION: Evolving recent ischemia in the left MCA territory in the left insula and left basal ganglia with no interval progression and no associated mass effect or hemorrhagic conversion. [id number] Procedure Note Hm Interface, Radiology Results Incoming - 03/15/2018 6:42 PM CDT EXAMINATION: CT STROKE BRAIN WO CONTRAST CLINICAL HISTORY: Stroke 24 HR POST TPA IMAGING COMPARISON: MRI of the brain dated March 15, [address] images were acquired using low-dose technique with automated exposure control. IMPRESSION: Evolving recent ischemia in the left MCA territory in the left insula and left basal ganglia with no interval progression and no associated mass effect or hemorrhagic conversion. [id number] Performing Organization Address City/State/Zipcode Phone Number [facility] [address] [place] [address] * MRI Brain Wo Contrast (03/15/2018 6:20 PM CDT) Narrative Performed At [facility] Study:MRI BRAIN WO CONTRAST History:Stroke COMPARISON:CT brain same date TECHNIQUE: Precontrast Sagittal, coronal, axial T1, T2, FLAIR, gradient, diffusionMR images of the brain performed. FINDINGS: The moderate-sized acute infarct involving the left lentiform nucleus, the cortex surrounding the left anterior sylvian fissure and left frontal mancia radiata. Small foci of acute ischemia present in the left parietal lobe. Mild changes of chronic small vessel ischemic disease present in the bilateral white matter. No acute hemorrhage, midline shift, hydrocephalus, or extra axial collections. Orbits are unremarkable. No significant fluid signal present in the mastoid air cells and paranasal sinuses. IMPRESSION: Moderate size left MCA distribution acute/subacute infarct without acute hemorrhage or significant mass effects. [id number] Procedure Note Interface, Radiology Results - 03/15/2018 7:11 PM CDT Study:MRI BRAIN WO CONTRAST History:Stroke COMPARISON:CT brain same date TECHNIQUE: Precontrast Sagittal, coronal, axial T1, T2, FLAIR, gradient, diffusion MR images of the brain performed. FINDINGS: The moderate-sized acute infarct involving the left lentiform nucleus, the cortex surrounding the left anterior sylvian fissure and left frontal mancia radiata. Small foci of acute ischemia present in the left parietal lobe. Mild changes of chronic small vessel ischemic disease present in the bilateral white matter. No acute hemorrhage, midline shift, hydrocephalus, or extra axial collections. Orbits are unremarkable. No significant fluid signal present in the mastoid air cells and paranasal sinuses. IMPRESSION: Moderate size left MCA distribution acute/subacute infarct without acute hemorrhage or significant mass effects. [facility]-[id number] Performing Organization Address [facility]/[place] [address] * Homocystine, plasma (03/15/2018 2:00 PM CDT) Homocysteine 10.9 0.0 - 15.0 umol/L [facility] DEPARTMENT OF Comment: PATHOLOGY AND The risk for coronary vascular GENOMIC MEDICINE disease increases progressively with homocysteine concentration.A 3.4 times greater risk is associated with a homocysteine concentration of greater than 15.8 umol/L as compared to a concentration below 14.1 umol/L. Specimen Plasma specimen Performing Organization Address [facility]/[place] [address] PATHOLOGY AND GENOMIC MEDICINE * Sedimentation rate (03/15/2018 2:00 PM CDT) Sedimentation rate 12 (H) 0 - 10 mm/hr [facility] DEPARTMENT OF PATHOLOGY AND GENOMIC MEDICINE Specimen Blood Performing Organization Address [facility] [place] [address] PATHOLOGY AND GENOMIC MEDICINE * Rheumatoid factor (03/15/2018 2:00 PM CDT) Rheumatoid factor <10 0 - 13 IU/mL [facility] DEPARTMENT OF PATHOLOGY AND GENOMIC MEDICINE Specimen Plasma specimen Performing Organization [facility] [place] [address] PATHOLOGY AND GENOMIC MEDICINE * C-reactive protein (03/15/2018 2:00 PM CDT) CRP 0.39 0.00 - 0.50 mg/dL [facility] DEPARTMENT OF PATHOLOGY AND GENOMIC MEDICINE Specimen Plasma specimen Performing Organization Address [facility] [place] [address] PATHOLOGY AND [facility] MEDICINE * Thyroid stimulating hormone (03/15/2018 2:00 PM CDT) TSH 1.75 0.27 - 4.20 uIU/mL [facility] DEPARTMENT OF PATHOLOGY AND GENOMIC MEDICINE Specimen Plasma specimen Performing Organization Address [facility]/[place] [address] PATHOLOGY AND GENOMIC MEDICINE * T4, free (03/15/2018 2:00 PM CDT) T4, free 1.1 0.9 - 1.7 ng/dL [facility] DEPARTMENT OF PATHOLOGY AND GENOMIC MEDICINE Specimen Plasma specimen Performing Organization Address [facility] [place] [address] PATHOLOGY AND [facility] MEDICINE * Hemoglobin A1c (03/15/2018 2:00 PM CDT) Hemoglobin A1C 6.9 (H) 4.0 - 5.6 % [facility] DEPARTMENT OF Comment: PATHOLOGY AND HbA1c cutoffs for diagnosing [facility] diabetes: 4.0% - 5.6%=normal 5.7% - 6.4%=increased risk for diabetes (prediabetes) >=6.5%=diabetes Goals for glycemic control (ADA 2016) < 7.0%Target for non adults with diabetes. More or less stringent targets may be appropriate for individual patients. <7.5% Target for Children and adolescents with type 1 diabetes. Specimen Blood Performing Organization Address [facility] Phone Number [facility] [place] [address] PATHOLOGY AND [facility] * Folate level (03/15/2018 2:00 PM CDT) Folate 16.9 4.8 - 24.2 ng/mL [facility] DEPARTMENT OF PATHOLOGY AND GENOMIC MEDICINE Specimen Serum Performing Organization Address [facility] [place] [address] PATHOLOGY AND [facility] MEDICINE * Vitamin B12 level (03/15/2018 2:00 PM CDT) Vitamin B12 493 211 - 946 pg/mL [facility] DEPARTMENT OF Comment: PATHOLOGY AND Significant overlap exists GENOMIC MEDICINE between normal and deficiency states. However, most patients with deficiencies will have Serum B12 <200 pg/mL. Specimen Serum Performing Organization Address [facility] [place] [address] PATHOLOGY AND [facility] MEDICINE * Echocardiogram complete w contrast and 3D if needed (03/15/2018 10:05 AM CDT) Narrative Performed At [facility] Echocardiography Report [address] [place] [address], [place] [address] Pat.Name:Yanet CHONG.ID:[id number] .Date: 03/15/2018 Refer.MD:AGATHA LOERA MD Exam Time: 8:31:00 AIDENtcaridad Type:Routine Echo Height:69inWeight:187lb BSA: 2.01 m2 DOBAge:1940,77Y Sex: MALEBP:118/65 HR:46 bpmSonogrphr: CARMITA Alejo Pat. Stat.:Inpatient Room:[place] [address] Study Status:Final Echo Event ID:[id number] Order ID:[id number] Reason for Study:Stroke, suspected cardiac etiology Procedures:2D Echo, Colorflow Doppler, Strain, Portable SUMMARY: Normal biventricular chamber size and systolic function Mild LA enlargement. No hemodynamically significant valvular pathology. Normal intra-cardiac filling pressures FINDINGS: LV: LV size is normal. LV EF is normal. Difficult to assess regionalwall motion; however it appears grossly normal. EstimatedEF is 60-64%. RV: RV size is normal. RV systolic function is normal. LA: LA volume is mildly enlarged. RA: RA volume is mildly enlarged. AO: Aortic root diameter is normal. ANDIE: There is an anterior space consistent with a prominent epicardialfat pad. IAS:Interatrial septum is thickened consistent with lipomatous hypertrophy. AV: No structural AV abnormalities noted. A trace of aortic regurgitation. MV: No structural MV abnormalities noted. A trace of mitral regurgitation. PV: No structural PV abnormalities noted. TV: No structural TV abnormalities noted. Schofield: Normal diastolic function. Other:Insufficient TR jet to estimate PA systolic pressure. MEASUREMENTS: 2D Parasternal [place] LVOT 2.1 cmLA Ds4.6 cm LVIDd5.6 cmIndex2.8 cm/m Ao An1.9 cm LVIDs2.9 cmAo Rtd 3.3 cm Index1.7 cm/m LV%fs 48.7 % LV Wrsy776.7 g(122-174) IVSd 0.8 cmLVM Index 88.4 g/m2 LVPWd0.9 cmRWT0.3 LA Sng Plane LA Area 23.4 cm2(8.8-23.4) LA Vol81.2 ml Index40.4 ml/m LA LngAx 5.6 cm DOPPLER LVOT Stroke Vol LVOT 2.1 cmLVOT CO3.7 l/min LVOT TVI22.2 cmLVOT CI1.8 l/m/m2 LVOT Tm342 esbyZO04 bpm LVOT SV 76.8 ml Signed 03/15/2018 11:07 AM Eduardo Osorio MD Procedure Note Interface, Radiology Results In - 03/15/2018 11:08 AM CDT Echocardiography Report [address] [place] [address] Pat.Name: DES CHONG Pat.ID: [id number] .Date: 03/15/2018 Refer.MD: AGATHA LOERA MD Exam Time: 8:31:00 AM Study Type:Routine Echo Height: 69in Weight: 187lb BSA: 2.01 m2 Age: 11 1940,77Y Sex: MALE BP: 118/65 HR: 46 bpm Sonogrphr: CARMITA Alejo Pat. Stat.:Inpatient Room: [place] [address] Study Status:Final Echo Event ID:[id number] Order ID: [id number] Reason for Study:Stroke, suspected cardiac etiology Procedures:2D Echo, Colorflow Doppler, Strain, Portable SUMMARY: Normal biventricular chamber size and systolic function Mild LA enlargement. No hemodynamically significant valvular pathology. Normal intra-cardiac filling pressures FINDINGS: LV: LV size is normal. LV EF is normal. Difficult to assess regional wall motion; however it appears grossly normal. Estimated EF is 60-64%. RV: RV size is normal. RV systolic function is normal. LA: LA volume is mildly enlarged. RA: RA volume is mildly enlarged. AO: Aortic root diameter is normal. ANDIE: There is an anterior space consistent with a prominent epicardial fat pad. IAS: Interatrial septum is thickened consistent with lipomatous hypertrophy. AV: No structural AV abnormalities noted. A trace of aortic regurgitation. MV: No structural MV abnormalities noted. A trace of mitral regurgitation. PV: No structural PV abnormalities noted. TV: No structural TV abnormalities noted. [place]: Normal diastolic function. Other: Insufficient TR jet to estimate PA systolic pressure. MEASUREMENTS: 2D Parasternal [place] LVOT 2.1 cm LA Ds 4.6 cm LVIDd 5.6 cm Index 2.8 cm/m Ao An 1.9 cm LVIDs 2.9 cm Ao Rtd 3.3 cm Index 1.7 cm/m LV%fs 48.7 % LV Mass 177.7 g (122-174) IVSd 0.8 cm LVM Index 88.4 g/m2 LVPWd 0.9 cm RWT 0.3 LA Sng Plane LA Area 23.4 cm2 (8.8-23.4) LA Vol 81.2 ml Index 40.4 ml/m LA LngAx 5.6 cm DOPPLER LVOT Stroke Vol LVOT 2.1 cm LVOT CO 3.7 l/min LVOT TVI 22.2 cm LVOT CI 1.8 l/m/m2 LVOT Tm 342 msec HR 48 bpm LVOT SV 76.8 ml Signed 03/15/2018 11:07 AM Eduardo Osorio MD Performing Organization Address City/State/Zipcode Phone Number [facility] [address] [place] [address] * Type and screen (03/15/2018 1:12 AM CDT) ABO grouping A [facility] DEPARTMENT OF PATHOLOGY AND GENOMIC MEDICINE Rh type POS [facility] DEPARTMENT OF PATHOLOGY AND GENOMIC MEDICINE Antibody screen (gel) NEG [facility] DEPARTMENT OF PATHOLOGY AND GENOMIC MEDICINE Specimen Blood Performing Organization Address [facility] Phone Number [facility] DEPARTMENT OF [address] [place] [address] PATHOLOGY AND GENOMIC MEDICINE * IR 3D Recon Slices Snapshots RDMPS (03/14/2018 9:21 PM CDT) Narrative Performed At Non-Reportable/No report needed. 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 2.Contrast staining of the left basal ganglion region, compatible with an established infarct core.Given the successful recanalization, strict blood pressure control to prevent post-reperfusion, hemorrhagic transformation of established cerebral infarction tissue is recommended. Narrative Performed At PROCEDURE:IR PERQ ART M-THROMBECT NFS [facility] This exam was performed in [facility]. Fluoro time:15.6 minutes Dose: 2791 mGy IMPRESSION: A complete separate report will be issued by the performing physician. [id number] Procedure Note Interface, Radiology Results Incoming - 03/16/2018 8:52 AM CDT PROCEDURE: IR PERQ ART M-THROMBECT NFS This exam was performed in [facility]. Fluoro time: 15.6 minutes Dose: 2791 mGy IMPRESSION: A complete separate report will be issued by the performing physician. [id number] Performing Organization Address [facility] Phone Number [facility] [address] [place] [address] * XR Chest 1 Vw Portable (03/14/2018 6:24 PM CDT) Narrative Performed At EXAMINATION:XR CHEST 1 VW PORTABLE [facility] CLINICAL HISTORY:Chest Pain COMPARISON:None IMPRESSION: Hypoinflation Minimal patchy bibasilar atelectasis Tiny right costophrenic angle effusion. Cardiomegaly with vascular ectasia. No infiltrate or congestion. No pneumothorax Single view chest [id number] Procedure Note Hm Interface, Radiology Results Incoming - 03/14/2018 6:32 PM CDT EXAMINATION: XR CHEST 1 VW PORTABLE CLINICAL HISTORY: Chest Pain COMPARISON: None IMPRESSION: Hypoinflation Minimal patchy bibasilar atelectasis Tiny right costophrenic angle effusion. Cardiomegaly with vascular ectasia. No infiltrate or congestion. No pneumothorax Single view chest [id number] Performing Organization Address [facility] Phone Number [facility] [address] [place] [address] * CTA Neck W Wo Contrast (03/14/2018 6:08 PM CDT) Narrative Performed At EXAMINATION:CT ANGIOGRAM NECK W WO CONTRAST [facility] CLINICAL HISTORY:STROKE COMPARISON:None. TECHNIQUE: Neck CTA with multi-planar MIP and volumetric rendering (3D) after bolus intravenous iodinated contrast administration was performed. All CT images were acquired using low-dose technique with automated exposure control. FINDINGS: Common origin of the left common carotid artery and brachiocephalic artery. Atherosclerosis of the aortic arch and origin of the left clavian artery without significant narrowing. Minimal calcified atherosclerosis without significant stenosis or occlusion along bilateral common, internal, and external carotid arteries. There is no significant stenosis according to the NASCET criteria (0%). Moderate narrowing of the origin of the left vertebral artery secondary to atherosclerosis. No significant narrowing of the right vertebral artery.The leftvertebral artery is dominant. Evaluation of the visualized intracranial circulation demonstrates occlusive thrombus of the distal left middle cerebral artery M1 and proximal M2 segment. Partially enhancing 12 mm right thyroid nodule. 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 No other focal stenosis of the cervical carotid or vertebral arteries. No aneurysm. Partially enhancing 12 mm right thyroid nodule. Nonemergent thyroid ultrasound can be performed for further assessment. Occlusion of the distal left middle cerebral artery M1 and proximal M2 segment, compatible with thrombus, as noted on CT head same day. Findings were discussed with and acknowledged by WAN PARIKH at 03/14/2018 6:16 PM who verbalized understanding. [id number] Procedure Note Hm Interface, Radiology Results Incoming - 03/14/2018 6:19 PM CDT EXAMINATION: CT ANGIOGRAM NECK W WO CONTRAST CLINICAL HISTORY: STROKE COMPARISON: None. TECHNIQUE: Neck CTA with multi-planar MIP and volumetric rendering (3D) after bolus intravenous iodinated contrast administration was performed. All CT images were acquired using low-dose technique with automated exposure control. FINDINGS: Common origin of the left common carotid artery and brachiocephalic artery. Atherosclerosis of the aortic arch and origin of the left clavian artery without significant narrowing. Minimal calcified atherosclerosis without significant stenosis or occlusion along bilateral common, internal, and external carotid arteries. There is no significant stenosis according to the NASCET criteria (0%). Moderate narrowing of the origin of the left vertebral artery secondary to atherosclerosis. No significant narrowing of the right vertebral artery.The left vertebral artery is dominant. Evaluation of the visualized intracranial circulation demonstrates occlusive thrombus of the distal left middle cerebral artery M1 and proximal M2 segment. Partially enhancing 12 mm right thyroid nodule. 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 No other focal stenosis of the cervical carotid or vertebral arteries. No aneurysm. Partially enhancing 12 mm right thyroid nodule. Nonemergent thyroid ultrasound can be performed for further assessment. Occlusion of the distal left middle cerebral artery M1 and proximal M2 segment, compatible with thrombus, as noted on CT head same day. Findings were discussed with and acknowledged by WAN PARIKH at 03/14/2018 6:16 PM who verbalized understanding. [id number] Performing Organization Address City/State/Zipcode Phone Number [facility] [address] [place] [address] * CTA Head W Wo Contrast (03/14/2018 6:07 PM CDT) Narrative Performed At EXAMINATION: CT ANGIOGRAM HEAD W WO CONTRAST [facility] CLINICAL HISTORY: STROKE COMPARISON:None TECHNIQUE:Imaging of the intracranial circulation was obtained from the skull base to the vertex during the arterial phase of enhancement. Postprocessing was performed with MIP multiplanar and 3D reconstructed images.CT imaging was performed with iterative reconstruction technique and/or automated exposure control to reduce radiation dose. FINDINGS: Occlusive thrombus in the distal left middle cerebral artery M1 and proximal M2 segments, as noted on CT head performed same day. There is reconstitution of flow of some of the distal middle cerebral artery M2 and M3 branches likely via collaterals. No focal stenosis of the anterior cerebral arteries or right middle cerebral artery. No focal stenosis of the vertebral, basilar, or posterior cerebral arteries. No aneurysm. IMPRESSION: 1. Occlusive thrombus of the distal left middle cerebral artery M1 and proximal M2 segments, as noted on CT head performed same day. Reconstitution of flow of the distal left middle cerebral artery M2 and M3 branches likely via collaterals. [id number] Procedure Note Interface, Radiology Results Incoming - 03/14/2018 6:15 PM CDT EXAMINATION: CT ANGIOGRAM HEAD W WO CONTRAST CLINICAL HISTORY: STROKE COMPARISON: None TECHNIQUE: Imaging of the intracranial circulation was obtained from the skull base to the vertex during the arterial phase of enhancement. Postprocessing was performed with MIP multiplanar and 3D reconstructed images. CT imaging was performed with iterative reconstruction technique and/or automated exposure control to reduce radiation dose. FINDINGS: Occlusive thrombus in the distal left middle cerebral artery M1 and proximal M2 segments, as noted on CT head performed same day. There is reconstitution of flow of some of the distal middle cerebral artery M2 and M3 branches likely via collaterals. No focal stenosis of the anterior cerebral arteries or right middle cerebral artery. No focal stenosis of the vertebral, basilar, or posterior cerebral arteries. No aneurysm. IMPRESSION: 1. Occlusive thrombus of the distal left middle cerebral artery M1 and proximal M2 segments, as noted on CT head performed same day. Reconstitution of flow of the distal left middle cerebral artery M2 and M3 branches likely via collaterals. [id number] Performing Organization Address City/State/Zipcode Phone Number [facility] [address] [place] [address] * ECG ED Preliminary Interpretation - NOT AN ORDER (03/14/2018 5:11 PM CDT) Narrative Performed At Wan Parikh MD 03/14/2018 10:16 PM ECG ED Preliminary Interpretation - Not an Order Performed by: WAN CHAVEZ Authorized by: WAN CHAVEZ ECG reviewed by ED Physician in the absence of a librarian helper: yes Interpretation: Interpretation: abnormal Rate: ECG rate:57 ECG rate assessment: bradycardic Rhythm: Rhythm: sinus bradycardia Ectopy: Ectopy: none QRS: QRS axis:Left Conduction: Conduction: normal ST segments: ST segments:Non-specific T waves: T waves: normal Other findings: Other findings: LVH * CRITICAL CARE (03/14/2018 5:11 PM CDT) Narrative Performed At Wan Parikh MD 03/14/2018 10:16 PM Critical Care Performed by: WAN CHAVEZ Authorized by: WAN CHAVEZ Critical care provider statement: Critical care time (minutes):65 Critical care start time:03/14/2018 5:16 PM Critical care time was exclusive of:Separately billable procedures and treating other patients Critical care was necessary to treat or prevent imminent or life-threatening deterioration of the following conditions:[employer] failure or compromise Critical care was time spent personally by me on the following activities:Development of treatment plan with patient or surrogate, discussions with primary provider, evaluation of patient's response to treatment, examination of patient, obtaining history from patient or surrogate, re-evaluation of patient's condition, pulse oximetry, ordering and review of radiographic studies, ordering and review of laboratory studies and ordering and performing treatments and interventions Earl 'yes' if you are taking over critical care for this patient from another provider.: no * Troponin (03/14/2018 5:10 PM CDT) Troponin <0.300 0.000 - 0.300 ng/mL [facility] DEPARTMENT OF Comment: PATHOLOGY AND 0.30 - 1.49 GENOMIC MEDICINE ng/mlMay indicate increased risk of acute coronary syndrome. >=1.5 ng/ml Consistent with acute myocardial infarction. The diagnostic value of a single normal or non-diagnostic result is questionable.Serial samples at 2-6 hour intervals are required to rule out acute myocardial injury. Specimen Plasma specimen Performing Organization Address City/State/Zipcode Phone Number [facility] [place] [address] [place] [address] PATHOLOGY AND GENOMIC MEDICINE * Comprehensive metabolic panel (03/14/2018 5:10 PM CDT) Sodium 142 135 - 148 mEq/L [facility] DEPARTMENT OF PATHOLOGY AND GENOMIC MEDICINE Potassium 3.9 3.5 - 5.0 mEq/L [facility] DEPARTMENT OF PATHOLOGY AND GENOMIC MEDICINE Chloride 104 98 - 112 mEq/L [facility] DEPARTMENT OF PATHOLOGY AND GENOMIC MEDICINE CO2 23 (L) 24 - 31 mEq/L [facility] DEPARTMENT OF PATHOLOGY AND GENOMIC MEDICINE Anion gap 15@ANIO 7 - 15 mEq/L [facility] DEPARTMENT OF PATHOLOGY AND GENOMIC MEDICINE BUN 19 8 - 23 mg/dL [facility] DEPARTMENT OF PATHOLOGY AND GENOMIC MEDICINE Creatinine 1.3 (H) 0.7 - 1.2 mg/dL [facility] DEPARTMENT OF PATHOLOGY AND GENOMIC MEDICINE Glucose 120 (H) 65 - 99 mg/dL [facility] DEPARTMENT OF PATHOLOGY AND GENOMIC MEDICINE Calcium 9.1 8.8 - 10.2 mg/dL [facility] DEPARTMENT OF PATHOLOGY AND GENOMIC MEDICINE Protein 7.4 6.3 - 8.3 g/dL [facility] DEPARTMENT OF Comment: PATHOLOGY AND [place] GENOMIC MEDICINE 4.6-7.0 g/dL 1 week 4.4-7.6 g/dL 7 months-1year 5.1-7.3 g/dL 1-2 years5.6-7 .5 g/dL >3 years6.0-8 .0 g/dL 18-150 6.3-8.3 g/dL Albumin 4.3 3.5 - 5.0 g/dL [facility] DEPARTMENT OF PATHOLOGY AND GENOMIC MEDICINE A/G ratio 1.4 0.7 - 3.8 [facility] DEPARTMENT OF PATHOLOGY AND GENOMIC MEDICINE Alkaline phosphatase 54 40 - 129 U/L [facility] DEPARTMENT OF PATHOLOGY AND GENOMIC MEDICINE AST 27 10 - 50 U/L [facility] DEPARTMENT OF PATHOLOGY AND GENOMIC MEDICINE ALT 35 5 - 50 U/L [facility] DEPARTMENT OF PATHOLOGY AND GENOMIC MEDICINE Total bilirubin 0.3 0.0 - 1.2 mg/dL [facility] DEPARTMENT OF PATHOLOGY AND GENOMIC MEDICINE Specimen Plasma specimen Performing Organization Address City/State/Zipcode Phone Number [facility] [address] [place] [address] PATHOLOGY AND GENOMIC MEDICINE after 08/23/2017 Insurance Payer Benefit Subscriber ID Type Phone Address Plan / Group MEDICARE MEDICARE xxxxxxxxxxx Medicare [place], [place] PART A AND B WORKERS COMP MISC xxxx xxxxxxxx Workers WORKER'S Comp COMP Advance Directives Patient has advance care planning documents on file. For more information, ivan aldrich contact: Hung Mcgee [address] [place] [address]
[2018-08-24] MEDS ORDERED: SODIUM CHLORIDE 0.9% 1000ML 1,000 ML IV STA (11:02)
[2018-08-24 11:22] LABS: BASOPHILS % 0.4 % (0.0-1.0); EOSINOPHILS # (AUTO) 0.1 (0.0-0.4); EOSINOPHILS % 1.8 % (0.0-6.0); HEMATOCRIT 38.6 % (38.2-49.6); HEMOGLOBIN 12.8 g/dL (14.0-18.0); LYMPHOCYTES # (AUTO) 1.3 (1.0-3.2); LYMPHOCYTES % 29.8 % (18.0-39.1); MEAN CORPUSCULAR HEMOGLOBIN 29.7 pg (28-32); MEAN CORPUSCULAR HGB CONC 33.2 g/dL (31-35); MEAN CORPUSCULAR VOLUME 89.6 fL (81-99); MONOCYTES # (AUTO) 0.5 (0.2-0.8); MONOCYTES % 11.2 % (4.4-11.3); NEUTROPHILS # (AUTO) 2.5 (2.1-6.9); NEUTROPHILS % 56.6 % (38.7-80.0); PLATELET COUNT 206 x10e3/uL (140-360); RED BLOOD COUNT 4.31 x10e6/uL (4.3-5.7); RED CELL DISTRIBUTION WIDTH 14.1 % (11.7-14.4)
[2018-08-24 11:27] LABS: INR 1.15; PARTIAL THROMBOPLASTIN TIME 34.3 seconds (23.8-35.5); PROTHROMBIN TIME 15.7 seconds (11.9-14.5)
[2018-08-24 11:34] LABS: ALBUMIN/GLOBULIN RATIO 1.3 (0.8-2.0); ANION GAP 14.3 mmol/L (8-16); CALCIUM 9.2 mg/dL (8.4-10.2); CREATININE, SERUM 1.26 mg/dL (0.72-1.25); POTASSIUM 4.3 mmol/L (3.5-5.1)
[2018-08-24 11:42] LABS: CLARITY,URINE CLOUDY (CLEAR); COLOR,URINE RED (YELLOW); PROTEIN,URINE DIPSTICK 2+ (NEGATIVE)
[2018-08-24 11:43] LABS: BACTERIA,URINE RARE /HPF; BILIRUBIN,URINE NEGATIVE (NEGATIVE); EPITHELIAL CELLS,URINE RARE /LPF; KETONES,URINE NEGATIVE (NEGATIVE); LEUKOCYTE ESTERASE ,URINE NEGATIVE (NEGATIVE); NITRITE,URINE NEGATIVE (NEGATIVE); RBC,URINE >50 /HPF (0-5); URINE UROBILINOGEN 0.2 mg/dL (0.2 - 1)
[2018-08-24] MEDS ORDERED: PHYTONADIONE 10 MG/ML AMP SQ ONE (13:15)
[2018-08-24] MEDS ORDERED: LISINOPRIL10 MG (13:58)
[2018-08-24] MEDS ORDERED: XARELTO20 MG (13:58)
[2018-08-24] MEDS ORDERED: CRESTOR40 MG (13:58)
--- OUTSIDE RECORDS SUMMARY | 2018-08-24 15:08 | XMS REPORT | Clinical Summary ---
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); Abnormal [...] Ronal Earl MD Ep loop recorder insertion [05766 (CPT)] 03/18/2018 Surgery Procedural Cardiology gAatha Pop MD 03/14/2018 Anesthesia Radiology Event Agatha [...] Taken Vital Sign Reading 07/18/2018 10:02 AM FLIGHT SIMULATOR TEACHER Blood Pressure 143/79 07/18/2018 10:02 AM FLIGHT SIMULATOR TEACHER Pulse 83 05/12/2018 7:27 AM CDT Temperature 36.8 C (98.2 F) 05/12/2018 7:27 AM CDT Respiratory Rate 16 05/12/2018 8:30 AM CDT Oxygen Saturation 98% - Inhaled Oxygen - Concentration 07/18/2018 10:02 AM FLIGHT SIMULATOR TEACHER Weight 82.6 kg (182 lb) 07/18/2018 10:02 AM FLIGHT SIMULATOR TEACHER Height 170.2 cm (5' 7") 07/18/2018 10:02 AM FLIGHT SIMULATOR TEACHER Body Mass Index 28.51 Plan of Treatment Care Team Description Date Type Specialty Agatha Loera MD [address] [place], [place] [id number] 01/23/2019 Office Visit Neurology Health Maintenance Due Date Last Done Comments SHINGLES VACCINES (1 of 1989 2) PNEUMOCOCCAL 2004 POLYSACCHARIDE VACCINE AGE 65 AND OVER PNEUMOCOCCAL-13 2004 INFLUENZA VACCINE 04/06/2018 Implants Device Identifier Shelf Expiration Date Model / Serial / Lot Implanted Type Area Manufactur er [id number] / / Monitor Cardiac Implant Confirm Rx Cardiac N/A: N/A ST MAKI - [id number] Pacemakers MEDICAL Implanted: 03/18/2018 (Quantity not and INC on file) Related Products 01/03/2019 [id number] / / [id number] Device Vasclr Clsr Vasoactive Cardiovasc N/A: N/A Intstnl Peptd 6fr Angio-Seal - [facility] [id number] Implants Implanted: 03/14/2018 (Quantity not on file) [id number] / / Catheter Bln Otw 2.5mm 12mm Cardiovasc N/A: N/A MEDTR[employer] Sprinter - [id number] [facility] - Implanted: 05/11/2018 (Quantity not Implants VASCULAR on file) [id number] / / Catheter 6fr X 13cm Antonia Plus Central N/A: N/A MICRO Intermediate - [id number] Venous VENTION Implanted: 03/14/2018 (Quantity not Catheters on file) [id number] / / Stent System 3.0 X 18mm Resolute Coronary N/A: N/A [employer] Salvador Otw Coronary - [id number] Stents [place] - Implanted: 05/11/2018 (Quantity not CARDIAC on file) RYHTYM MGMT [id number] / / Stent System 2.75 X 08mm Resolute Coronary N/A: N/A [employer] [place] Otw Coronary - [id number] Stents [place] - Implanted: 05/11/2018 (Quantity not CARDIAC on file) RYHTYM MGMT [id number] / / Catheter Thrmbtmy Neuron Max 088 Surgical N/A: N/A PENUMBRA Str 6fr 80x4cm - [id number] Implants; INC Implanted: 03/14/2018 (Quantity not Expanders; on file) Extenders; Surgical Wires 02/04/2020 [id number] / / [id number] System Clsr Sut Meditd 6fr Perclose Surgical N/A: N/A HONG Proglide - [id number] Implants; VASCULAR Implanted: 05/11/2018 (Quantity not Expanders; DEVICES on file) Extenders; Surgical Wires 02/04/2020 [id number] / / [id number] System Clsr Sut Meditd 6fr Perclose Surgical N/A: N/A HONG Proglide - [id number] Implants; VASCULAR Implanted: 05/11/2018 (Quantity not Expanders; DEVICES on file) Extenders; Surgical Wires Procedures Comments Procedure Name Priority Date/Time Associated Diagnosis LIPID PANEL Routine 07/18/2018 Hyperlipidemia LDL goal 10:43 AM FLIGHT SIMULATOR TEACHER <70 HC COMPLETE BLD COUNT Routine 05/12/2018 [...] CDT PARTIAL THROMBOPLASTIN STAT 05/10/2018 Atherosclerosis of jackson TIME (PTT) 9:23 AM CDT coronary artery with angina pectoris, unspecified whether jackson or transplanted heart Cerebral infarction due to thrombosis of left middle cerebral artery PROTHROMBIN TIME WITH INR STAT 05/10/2018 Atherosclerosis of jackson 9:23 AM CDT coronary artery with angina pectoris, unspecified whether jackson or transplanted heart Cerebral infarction due to thrombosis of left middle cerebral artery CBC HEMOGRAM STAT 05/10/2018 Atherosclerosis of jackson 9:23 AM CDT coronary artery with angina pectoris, unspecified whether jackson or transplanted heart Cerebral infarction due to thrombosis of left middle cerebral artery BASIC METABOLIC PANEL STAT 05/10/2018 Atherosclerosis of jackson 9:23 AM CDT coronary artery with angina pectoris, unspecified whether jackson or transplanted heart Cerebral infarction due to [...] MMODE SPECTRAL 10:05 AM CDT COLOR DOPPLER (67208) POC GLUCOSE Routine 03/15/2018 7:40 AM CDT [...] PRELIMINARY Routine 03/14/2018 INTERPRETATION 5:11 PM CDT DC CRITICAL CARE, E/M Routine 03/14/2018 30-74 MINUTES [...] Results * Lipid panel (07/18/2018 10:43 AM FLIGHT SIMULATOR TEACHER) Only the most recent of 3 results within the time period is included. Cholesterol 122 <200 mg/dL [facility] Triglycerides 197 (H) <150 mg/dL [facility] HDL cholesterol 38 (L) >40 mg/dL [facility] LDL cholesterol 62Comment: Result obtained by <100 mg/dL [facility] direct LDL measurement [facility] Lipid panel SeeBelow [facility] interpretation Comment: HOSPITAL Total Cholesterol (mg/dL) <200 [...] specimen Performing Organization Address City/State/[place] [address] PATHOLOGY AND GENOMIC MEDICINE [address] * CBC with platelet and differential [...] GENOMIC MEDICINE Specimen Blood Performing Organization Address City/[facility] Phone Number [address] [address] PATHOLOGY AND GENOMIC MEDICINE * ECG Pre/Post Op (05/12/2018 4:15 AM CDT) Ventricular rate 56 [facility] MUSE Atrial rate 56 [facility] MUSE DC interval 152 [facility] MUSE QRSD interval 112 [...] significant change was found- Performing Organization Address City/[facility] Phone Number [facility] [address] [place] [address] * Estimated GFR (05/12/2018 4:00 AM CDT) [...] Americans. Specimen Plasma specimen Performing Organization Address City/[facility] [place] [place] [address] PATHOLOGY [facility] iBio MEDICINE * Basic metabolic panel (05/12/2018 4:00 [...] MEDICINE Specimen Plasma specimen Performing Organization Address City/[facility] [place] [place] [address] PATHOLOGY AND [employer] MEDICINE * ECG 12 lead (05/11/2018 11:57 AM CDT) Only the most recent of 3 results within the time period is included. Ventricular rate 50 [facility] MUSE Atrial rate 50 [facility] MUSE DC interval 172 [facility] MUSE QRSD interval 118 [...] Phone Number [facility] BERRY [address] [place] [address] * Cv solder making laborer procedure (05/11/2018 10:06 AM CDT) Narrative Performed At [facility] Successful PCI to mid LAD with 3.0x18 mm Resolute [place] BERNA followed by 2.75x8 mm Resolute [place] BERNA to distal edge for small edge dissection See dictated op report for further details TITLE OF OPERATION: Percutaneous coronary intervention with medicated stent to the proximal and mid left anterior descending coronary artery. SURGEON: Dr. Arpit Blanchard. FIELD EXAMINER: Dr. Agatha Beckham. 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 2.Abnormal cardiac functional study. 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 2.Abnormal cardiac functional study. ANESTHESIA: Conscious sedation with Versed and fentanyl. ESTIMATED BLOOD LOSS: 20 mL. COMPLICATIONS: None. OPERATIVE COURSE: After informed consent was obtained from the patient and with appropriate time-out procedures called, the patient was originally taken to the cardiac catheterization laboratory by my partner, Dr. Ronal Earl.Dr. Earl performed diagnostic coronary angiography using 5-Omani system.Once accomplished, I was called to the solder making laborer to assess for the possibility of percutaneous [...] patient previously, we proceeded with intervention. The 5-Omani system was exchanged for a 6-Omani sheath.The patient received bivalirudin with subsequent ACT greater than 230 seconds prior to wire passage. The guiding catheter chosen was a 6-Omani XB LAD 3.5-sidehole variety. Preprocedural angiograms were taken in two views.A 0.014 extra support exchange length wire was then inserted across the stenosis and the lesion, predilated with a 2.5 x 12 mm balloon.The lesion was then successfully stented with a 3.0 x 18 mm Resolute [place] medicated stent.The stent was properly placed, but [...] tolerated the procedure well. Performing Organization Address [facility] Phone Number [facility] [address] [place] [address] * Cv solder making laborer procedure (05/11/2018 10:06 AM CDT) Narrative Performed At [facility] LM: normal LAD: mid 95% stenosis, first diagonal proximal 50% Ramus: no significant stenosis LCX: no significant stenosis RCA: mild plaque Performing Organization Address [facility] Phone Number [facility] [address] [place] [address] * Activated clotting time (05/11/2018 9:08 AM CDT) Only the most recent of 2 results within the time period is included. Activated clotting time 426 (H) 96 - 152 sec [facility] DEPARTMENT OF Comment: PATHOLOGY AND Meter ID: [id number] GENOMIC MEDICINE Funeral Professional: Norberto Carlson Performing Organization Address [facility] Phone Number [facility] DEPARTMENT OF [address] [place] [address] PATHOLOGY AND GENOMIC MEDICINE * Partial thromboplastin time, activated (05/10/2018 9:23 AM CDT) Only the most recent of 2 results within the time period is included. PTT 35.3 23.0 - 36.0 sec [facility] DEPARTMENT OF Comment: PATHOLOGY AND PTT therapeutic range for [facility] unfractionated heparin is 61.0-112.0 seconds which corresponds to Anti-Xa 0.3-0.7 U/ml. Specimen Blood Performing Organization Address [facility] Phone Number [address] [place] [address] PATHOLOGY AND GENOMIC MEDICINE * Prothrombin time with INR (05/10/2018 9:23 AM CDT) Only the most recent of 2 results within the time period is included. Prothrombin time 17.7 (H) 12.0 - 15.0 sec [facility] DEPARTMENT OF PATHOLOGY AND GENOMIC MEDICINE INR 1.4 [facility] DEPARTMENT OF Comment: PATHOLOGY AND The International Normalized [facility] Ratio (INR) is a therapeutic monitoring tool for patients who are stable on oral anticoagulant therapy. An INR of 2.0-3.0 is suggested for deep vein thrombosis/pulmonary embolism. Specimen Blood Performing Organization Address [facility] Phone Number [address] [place] [address] PATHOLOGY AND GENOMIC MEDICINE * CBC hemogram (05/10/2018 9:23 AM CDT) Only the most recent of 3 results within the time period is included. WBC 5.74 4.50 - 11.00 k/uL [facility] DEPARTMENT OF PATHOLOGY AND GENOMIC MEDICINE RBC 4.65 4.40 - 6.00 m/uL [facility] DEPARTMENT OF PATHOLOGY AND GENOMIC MEDICINE HGB 13.7 (L) 14.0 - 18.0 g/dL [facility] DEPARTMENT OF PATHOLOGY AND GENOMIC MEDICINE HCT 41.2 41.0 - 51.0 % [facility] DEPARTMENT OF PATHOLOGY AND GENOMIC MEDICINE MCV 88.6 82.0 - 100.0 fL [facility] DEPARTMENT OF PATHOLOGY AND GENOMIC MEDICINE MCH 29.5 27.0 - 34.0 pg [facility] DEPARTMENT OF PATHOLOGY AND GENOMIC MEDICINE MCHC 33.3 31.0 - 37.0 g/dL [facility] DEPARTMENT OF PATHOLOGY AND GENOMIC MEDICINE RDW - SD 43.8 37.0 - 55.0 fL [facility] PATHOLOGY AND GENOMIC MEDICINE MPV 9.8 8.8 - 13.2 fL [facility] DEPARTMENT OF PATHOLOGY AND GENOMIC MEDICINE Platelet count 202 150 - 400 k/uL [facility] DEPARTMENT OF PATHOLOGY AND GENOMIC MEDICINE Nucleated RBC 0.00 /100 WBC [facility] DEPARTMENT OF PATHOLOGY AND GENOMIC MEDICINE Specimen Blood Performing Organization Address City/[facility] Phone Number [place] [phone] [place] [address] PATHOLOGY AND GENOMIC MEDICINE * Cv electrophysiology procedure (03/18/2018 11:39 AM CDT) Narrative Performed At [facility] Successful loop recorder implant. Performing Organization Address City/[facility]/Zipcode Phone Number [facility] [address] [place] [address] * Cardiac mri stroke eval w contrast (03/17/2018 9:20 AM CDT) Narrative Performed At [facility] CMR Report Name:DES CHONG :1940 Scan Date: [...] LV mass/thrombus. VIABILITY: There is limited transmural OH of the proximal to mid LAD territory. [...] Anteroseptal | Severe Hypo| 26-50% || Sub-Endo OH| | Mid Inferoseptal | Severe Hypo| 51-75% || Sub-Endo [place]| | Mid Inferior | Normal/Hyper | None ||| | Mid Inferolateral| Normal/Hyper | None ||| | Mid Anterolateral| Normal/Hyper | None ||| | Apical Anterior| Normal/Hyper | 51-75% || Sub-Endo [place]| | Apical Septal| Akinetic | 51-75% || Sub-Endo [place]| | Apical Inferior| Akinetic | 26-50% ||| | Apical Lateral | Normal/Hyper | None ||| | Cassatt | Akinetic | 51-75% || Sub-Endo [place]| + + + + +----- + | [...] INFO GENERAL --------- CONTRAST AGENT TYPE:Dotarem LOT NUMBER:[id number] EXPIRATION DATE:2019-03-05 00:00:00 VOLUME ADMINISTERED:25 ml DOSAGE [...] Nella[ , ]Dee Hoskins BILLING Patient Account [id number] CPT Codes 68765, 15282, 40101 ICD10 Codes I63.9, I25.5 Report generated by Pre[employer], a product of [employer] Procedure Note Interface, Radiology Results In - 03/17/2018 3:38 PM CDT Hung Mcgee CMR Report Name: DES CHONG : 1940 Scan Date: 2018-03-17 07:42:57 Electronically signed by Gavion Gonzalez M.D. 15:37:59 VITALS HEIGHT/WEIGHT HEIGHT: 67.00 [...] LV mass/thrombus. VIABILITY: There is limited transmural OH of the proximal to mid LAD territory. [...] Hypo | 26-50% | | Sub- Endo [place] | | Mid Inferoseptal | Severe Hypo | 51-75% | | Sub- Endo [place] | | Mid Inferior | Normal/Hyper | None | | | | Mid Inferolateral | Normal/Hyper | None | | | | Mid Anterolateral | Normal/Hyper | None | | | | Apical Anterior | Normal/Hyper | 51-75% | | Sub- Endo [place] | | Apical Septal | Akinetic | 51-75% | | Sub- Endo [place] | | Apical Inferior | Akinetic | 26-50% | | | | Apical Lateral | Normal/Hyper | None | | | | Cassatt | Akinetic | 51-75% | | Sub- Endo [place] | + + + + + + [...] GENERAL CONTRAST AGENT TYPE: Dotarem LOT NUMBER: [id number] EXPIRATION DATE: 2019-03-05 00:00:00 VOLUME ADMINISTERED: 25 [...] RT[ , ]Dee Hoskins BILLING Patient Account [id number] CPT Codes 53765, 78420, 91844 ICD10 Codes I63.9, I25.5 Report generated by [employer], a product of [employer] Performing Organization Address City/State/Zipcode Phone Number [facility] [address] [place] [address] * POC glucose (03/16/2018 11:27 AM CDT) Only the most recent of 12 results within the time period is included. POC glucose 154 (H) 65 - 99 mg/dL [facility] DEPARTMENT OF Comment: PATHOLOGY AND [facility] Notified RN [employer] MEDICINE Meter ID: [id number] Funeral Professional: Sujit Johnsonena Performing Organization Address [facility] [place] [address] PATHOLOGY AND GENOMIC MEDICINE * Magnesium level (03/16/2018 2:36 AM CDT) Magnesium 2.1 1.6 - 2.4 mg/dL [facility] DEPARTMENT OF PATHOLOGY AND GENOMIC MEDICINE Specimen Plasma specimen Performing Organization Address [facility] [place] [place] [address] PATHOLOGY AND GENOMIC MEDICINE * Urine drugs [...] purposes only. Specimen Urine Performing Organization Address [facility] [place] [place] [address] PATHOLOGY AND GENOMIC MEDICINE * Urinalysis screen [...] GENOMIC MEDICINE Specimen Urine Performing Organization Address City/[facility]/Zipcode Phone Number [place] [phone] PATHOLOGY AND GENOMIC MEDICINE * Urine culture (03/15/2018 10:30 PM CDT) Urine culture SEE COMMENTComment: [facility] DEPARTMENT OF Bacteriuria screen negative. PATHOLOGY AND GENOMIC MEDICINE Performing Organization Address City/[facility]/Zipcode Phone Number [place] [phone] PATHOLOGY AND GENOMIC MEDICINE * CT Stroke Brain Wo Contrast (03/15/2018 6:33 PM CDT) Only the most recent of 2 results within the time period is included. Narrative Performed At EXAMINATION:CT STROKE BRAIN WO CONTRAST RADIANT CLINICAL HISTORY:[id number] HR POST TPA IMAGING COMPARISON:MRI of the brain dated March 15, [address] images were acquired using low-dose technique with automated exposure control. IMPRESSION: Evolving recent ischemia in the left MCA territory in the left insula and left basal ganglia with no interval progression and no associated mass effect or hemorrhagic conversion. [id number] Procedure Note Hm Interface, Radiology Results Incoming [...] no associated mass effect or hemorrhagic conversion. [id number] Performing Organization Address City/State/Zipcode Phone Number [facility] [address] [place] [address] * MRI Brain Wo Contrast (03/15/2018 6:20 [...] without acute hemorrhage or significant mass effects. [id number] Procedure Note Interface, Radiology Results - 03/15/2018 [...] without acute hemorrhage or significant mass effects. [facility]-[id number] Performing Organization Address [facility]/[place] [address] * Homocystine, plasma (03/15/2018 2:00 PM CDT) Homocysteine 10.9 0.0 - 15.0 umol/L [facility] DEPARTMENT OF Comment: PATHOLOGY AND The risk for coronary vascular GENOMIC MEDICINE disease increases progressively with homocysteine concentration.A 3.4 times greater risk is associated with a homocysteine concentration of greater than 15.8 umol/L as compared to a concentration below 14.1 umol/L. Specimen Plasma specimen Performing Organization Address [facility]/[place] [address] PATHOLOGY AND GENOMIC MEDICINE * Sedimentation rate (03/15/2018 2:00 PM CDT) Sedimentation rate 12 (H) 0 - 10 mm/hr [facility] DEPARTMENT OF PATHOLOGY AND GENOMIC MEDICINE Specimen Blood Performing Organization Address [facility] [place] [address] PATHOLOGY AND GENOMIC MEDICINE * Rheumatoid factor (03/15/2018 2:00 PM CDT) Rheumatoid factor <10 0 - 13 IU/mL [facility] DEPARTMENT OF PATHOLOGY AND GENOMIC MEDICINE Specimen Plasma specimen Performing Organization [facility] [place] [address] PATHOLOGY AND GENOMIC MEDICINE * C-reactive protein (03/15/2018 2:00 PM CDT) CRP 0.39 0.00 - 0.50 mg/dL [facility] DEPARTMENT OF PATHOLOGY AND GENOMIC MEDICINE Specimen Plasma specimen Performing Organization Address [facility] [place] [place] [address] PATHOLOGY AND [facility] * Thyroid stimulating hormone (03/15/2018 2:00 PM CDT) TSH 1.75 0.27 - 4.20 uIU/mL [facility] DEPARTMENT OF PATHOLOGY AND GENOMIC MEDICINE Specimen Plasma specimen Performing Organization Address [facility]/[place] [address] PATHOLOGY AND GENOMIC MEDICINE * T4, free (03/15/2018 2:00 PM CDT) T4, free 1.1 0.9 - 1.7 ng/dL [facility] DEPARTMENT OF PATHOLOGY AND GENOMIC MEDICINE Specimen Plasma specimen Performing Organization Address [facility] [place] [address] PATHOLOGY AND [facility] * Hemoglobin A1c (03/15/2018 2:00 PM CDT) Hemoglobin A1C 6.9 (H) 4.0 - 5.6 % [facility] DEPARTMENT OF Comment: PATHOLOGY AND HbA1c cutoffs for diagnosing [facility] diabetes: 4.0% - 5.6%=normal 5.7% - 6.4%=increased risk for diabetes (prediabetes) >=6.5%=diabetes Goals for glycemic control (ADA 2016) < 7.0%Target for non adults with diabetes. More or less stringent targets may be appropriate for individual patients. <7.5% Target for Children and adolescents with type 1 diabetes. Specimen Blood Performing Organization Address [facility] Phone Number [facility] [place] [place] [address] PATHOLOGY AND [facility] * Folate level (03/15/2018 2:00 PM CDT) Folate 16.9 4.8 - 24.2 ng/mL [facility] DEPARTMENT OF PATHOLOGY AND GENOMIC MEDICINE Specimen Serum Performing Organization Address [facility] [place] [place] [address] PATHOLOGY AND [facility] * Vitamin B12 level (03/15/2018 2:00 PM CDT) Vitamin B12 493 211 - 946 pg/mL [facility] DEPARTMENT OF Comment: PATHOLOGY AND Significant overlap exists GENOMIC MEDICINE between normal and deficiency states. However, most patients with deficiencies will have Serum B12 <200 pg/mL. Specimen Serum Performing Organization Address [facility] [place] [address] PATHOLOGY AND [facility] * Echocardiogram complete w contrast and 3D if needed (03/15/2018 10:05 AM CDT) Narrative Performed At [facility] Echocardiography Report [address] [place] [address], [place] [address] Pat.Name:Yanet CHONG.ID:[id number] .Date: 03/15/2018 Refer.MD:AGATHA LOERA MD Exam Time: 8:31:00 AIDENtcaridad Type:Routine Echo Height:69inWeight:187lb BSA: 2.01 m2 DOBAge:1940,77Y Sex: MALEBP:118/65 HR:46 bpmSonogrphr: CARMITA Alejo Pat. Stat.:Inpatient Room:[place] [address] Study Status:Final Echo Event ID:[id number] Order ID:[id number] Reason for Study:Stroke, suspected cardiac etiology Procedures:2D [...] PA systolic pressure. MEASUREMENTS: 2D Parasternal Long [place] LVOT 2.1 cmLA Ds4.6 cm LVIDd5.6 cmIndex2.8 cm/m Ao An1.9 cm LVIDs2.9 cmAo Rtd 3.3 cm Index1.7 cm/m LV%fs 48.7 % LV Qkuy508.7 g(122-174) IVSd 0.8 cmLVM Index 88.4 g/m2 LVPWd0.9 cmRWT0.3 LA Sng Plane LA Area 23.4 cm2(8.8-23.4) LA Vol81.2 ml Index40.4 ml/m LA LngAx 5.6 cm DOPPLER LVOT Stroke Vol LVOT 2.1 cmLVOT CO3.7 l/min LVOT TVI22.2 cmLVOT CI1.8 l/m/m2 LVOT Tm342 wajjPS33 bpm LVOT SV 76.8 ml Signed 03/15/2018 11:07 AM Eduardo Osorio MD Procedure Note Interface, Radiology Results In - 03/15/2018 11:08 AM CDT Echocardiography Report [address] [place] [address] Pat.Name: DES CHONG Pat.ID: [id number] .Date: 03/15/2018 Refer.MD: AGATHA LOERA MD Exam Time: 8:31:00 AM Study Type:Routine Echo Height: 69in Weight: 187lb BSA: 2.01 m2 Age: 11 1940,77Y Sex: MALE BP: 118/65 HR: 46 bpm Sonogrphr: CARMITA Alejo Pat. Stat.:Inpatient Room: [place] [address] Study Status:Final Echo Event ID:[id number] Order ID: [id number] Reason for Study:Stroke, suspected cardiac etiology Procedures:2D [...] PA systolic pressure. MEASUREMENTS: 2D Parasternal Long [place] LVOT 2.1 cm LA Ds 4.6 cm [...] Performing Organization Address City/State/Zipcode Phone Number [facility] [address] [place] [address] * Type and screen (03/15/2018 1:12 AM CDT) ABO grouping A [facility] DEPARTMENT OF PATHOLOGY AND GENOMIC MEDICINE Rh type POS [facility] DEPARTMENT OF PATHOLOGY AND GENOMIC MEDICINE Antibody screen (gel) NEG [facility] DEPARTMENT OF PATHOLOGY AND GENOMIC MEDICINE Specimen Blood Performing Organization Address [facility] Phone Number [facility] DEPARTMENT OF [address] [place] [address] PATHOLOGY AND GENOMIC MEDICINE * IR 3D Recon Slices Snapshots RDMPS (03/14/2018 9:21 PM CDT) Narrative Performed At Non-Reportable/No report needed. [facility] Performing Organization Address City/[facility] Phone Number [facility] [address] [place] [address] * IR Perq Art M-Thrombect NFS (03/14/2018 [...] the performing physician. [id number] Performing Organization Address [facility] Phone Number [facility] [address] [place] [address] * XR Chest 1 Vw Portable (03/14/2018 6:24 PM CDT) Narrative Performed At EXAMINATION:XR CHEST 1 VW PORTABLE [facility] CLINICAL HISTORY:Chest Pain COMPARISON:None IMPRESSION: Hypoinflation Minimal patchy bibasilar atelectasis Tiny right costophrenic angle effusion. Cardiomegaly with vascular ectasia. No infiltrate or congestion. No pneumothorax Single view chest [id number] Procedure Note Hm Interface, Radiology Results Incoming - 03/14/2018 6:32 PM CDT EXAMINATION: XR CHEST 1 VW PORTABLE CLINICAL HISTORY: Chest Pain COMPARISON: None IMPRESSION: Hypoinflation Minimal patchy bibasilar atelectasis Tiny right costophrenic angle effusion. Cardiomegaly with vascular ectasia. No infiltrate or congestion. No pneumothorax Single view chest [id number] Performing Organization Address [facility] Phone Number [facility] [address] [place] [address] * CTA Neck W Wo Contrast (03/14/2018 [...] at 03/14/2018 6:16 PM who verbalized understanding. [id number] Procedure Note Hm Interface, Radiology Results Incoming [...] at 03/14/2018 6:16 PM who verbal[address]. [id number] Performing Organization Address City/State/Zipcode Phone Number [facility] [address] [place] [address] * CTA Head W Wo Contrast (03/14/2018 [...] M2 and M3 branches likely via collaterals. [id number] Procedure Note Interface, Radiology Results Incoming - [...] M2 and M3 branches likely via collaterals. 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 >=1.5 ng/ml Consistent with acute myocardial infarction. The diagnostic value of a single normal or non-diagnostic result is questionable.Serial samples at 2-6 hour intervals are required to rule out acute myocardial injury. Specimen Plasma specimen Performing Organization Address City/State/Zipcode Phone Number [facility] [place] [address] [place] [address] PATHOLOGY AND GENOMIC MEDICINE * Comprehensive metabolic panel (03/14/2018 5:10 PM CDT) Sodium 142 135 - 148 mEq/L [facility] DEPARTMENT OF PATHOLOGY AND GENOMIC MEDICINE Potassium 3.9 3.5 - 5.0 mEq/L [facility] DEPARTMENT OF PATHOLOGY AND GENOMIC MEDICINE Chloride 104 98 - 112 mEq/L [facility] DEPARTMENT OF PATHOLOGY AND GENOMIC MEDICINE CO2 23 (L) 24 - 31 mEq/L [facility] DEPARTMENT OF PATHOLOGY AND GENOMIC MEDICINE Anion gap 15@ANIO 7 - 15 mEq/L [facility] DEPARTMENT OF PATHOLOGY AND GENOMIC MEDICINE BUN 19 8 - 23 mg/dL [facility] DEPARTMENT OF PATHOLOGY AND GENOMIC MEDICINE Creatinine 1.3 (H) 0.7 - 1.2 mg/dL [facility] DEPARTMENT OF PATHOLOGY AND GENOMIC MEDICINE Glucose 120 (H) 65 - 99 mg/dL [facility] DEPARTMENT OF PATHOLOGY AND GENOMIC MEDICINE Calcium 9.1 8.8 - 10.2 mg/dL [facility] DEPARTMENT OF PATHOLOGY AND GENOMIC MEDICINE Protein 7.4 6.3 - 8.3 g/dL [facility] DEPARTMENT OF Comment: PATHOLOGY AND [place] GENOMIC MEDICINE 4.6-7.0 g/dL 1 week 4.4-7.6 g/dL 7 months-1year 5.1-7.3 g/dL 1-2 years5.6-7 .5 g/dL >3 years6.0-8 .0 g/dL 18-150 6.3-8.3 g/dL Albumin 4.3 3.5 - 5.0 g/dL [facility] DEPARTMENT OF PATHOLOGY AND GENOMIC MEDICINE A/G ratio 1.4 0.7 - 3.8 [facility] DEPARTMENT OF PATHOLOGY AND GENOMIC MEDICINE Alkaline phosphatase 54 40 - 129 U/L [facility] DEPARTMENT OF PATHOLOGY AND GENOMIC MEDICINE AST 27 10 - 50 U/L [facility] DEPARTMENT OF PATHOLOGY AND GENOMIC MEDICINE ALT 35 5 - 50 U/L [facility] DEPARTMENT OF PATHOLOGY AND GENOMIC MEDICINE Total bilirubin 0.3 0.0 - 1.2 mg/dL [facility] DEPARTMENT OF PATHOLOGY AND GENOMIC MEDICINE Specimen Plasma specimen Performing Organization Address City/State/Zipcode Phone Number [facility] [address] [place] [address] PATHOLOGY AND GENOMIC MEDICINE after 08/23/2017 Insurance Payer Benefit Subscriber ID Type Phone Address Plan / Group MEDICARE MEDICARE xxxxxxxxxxx Medicare [place], [place] PART A AND B WORKERS COMP MISC xxxx xxxxxxxx Workers WORKER'S Comp COMP Advance Directives Patient has advance care planning documents on file. For more information, ivan aldrich contact: Hung Mcgee [address] [place] [address]
--- NOTE | 2018-08-24 16:20 | Diagnostic Imaging Report ---
EXAM: CT Abdomen and Pelvis WITH contrast INDICATION: Hematuria/pain COMPARISON: None. TECHNIQUE: Abdomen and Pelvis was scanned utilizing a multidetector helical scanner after administration of IV contrast. Coronal and sagittal reformations were obtained. IV CONTRAST: 100 mL Isovue-370 COMPLICATIONS: None RADIATION DOSE: Total DLP:454 mGy*cm Estimated effective dose: (DLP x 0.015 x size factor) mSv CTDIvol has been reviewed. It is below the limits set by the Radiation Protocol Committee (RPC). Appropriate CT dose reduction techniques were utilized. FINDINGS: Abdomen: Lung Bases: 7 mm and 15 mm nodules right lower lobe. Solid Organs: Calcifications of the gallbladder incompletely evaluated. It is unclear whether there are multiple calcified gallstones versus advanced calcifications of the gallbladder wall. Adrenals, spleen, and pancreas are unremarkable. Cysts are present in both kidneys. Upper GI Tract: Decompressed stomach limits adequate evaluation. No small bowel obstructive changes. Vascularity: Mild aortic vascular calcifications with no aneurysm. Retroaortic left renal vein. Lymph Nodes: No suspicious adenopathy. Other: None. Pelvis: Bladder: Significant soft tissue density present in the dependent portion of the urinary bladder. Other: Prostate enlarged 59 mm transverse diameter indenting base of bladder. No suspicious adenopathy in the pelvis. Colon: There are a few scattered diverticula. Bones: Degenerative changes spine, SI joints, and hips. Mottled appearance of the superior pubic ramus on the right statistically sequela of prior trauma. There are a few scattered sclerotic foci in the pelvis. IMPRESSION: 1. Large ill-defined soft tissue density within the urinary bladder incompletely evaluated. Enlarged prostate indenting base of bladder. Findings are concerning for either malignancy of the urinary bladder or prostate gland. Urologic consultation, direct visualization, and tissue diagnosis recommended. 2. Pulmonary nodules right lower lobe concerning for metastasis. 3. There are either calcified gallstones or advanced calcifications of the gallbladder wall. 4. Osseous findings as above. Signed by: Dr. King Bennett MD on 08/24/2018 4:17 PM
[2018-08-24] MEDS ORDERED: SODIUM CHLORIDE 0.9% 50ML 50 ML ONE (17:30)
[2018-08-24] MEDS ORDERED: IOPAMIDOL 370 MG/ML 200 ML INFUS..BTL INJ ONE (17:30)
--- NOTE | 2018-08-25 03:25 | NUR ---
resting with eyes closed, resp even and nonlab, nad noted
--- NOTE | 2018-08-25 06:03 | NUR ---
PT RESTING WITH EYES CLOSED, LYING ON RIGHT SIDE. RESP NONLAB, NAD NOTED.
--- NOTE | 2018-08-25 06:35 | NUR ---
PT AWAKE ALERT SKIN W/D RESP NONLAB. NAD NOTED. EMPTIED 200CC DARK RED URINE FROM URINAL. DENIES COMPLAINTS, STATES HE FEELS MUCH BETTER.
--- NOTE | 2018-08-25 09:41 | Consultation ---
DATE OF CONSULTATION: August 25, 2018 UROLOGY CONSULTATION REASON FOR CONSULTATION: Gross hematuria. HISTORY OF PRESENT ILLNESS: Des Rico is a 78-year-old man with a long-standing history of BPH. He is status post a transurethral resection of the prostate or a similar procedure approximately 7 years ago at [facility]. The patient has had decreased urinary force of stream despite that prior surgery. He reports nocturia times 1. He denies prior hematuria, dysuria, urinary tract infections, urolithiasis. Denies any urinary incontinence. The patient had severe gross hematuria yesterday. He held his daily Xarelto yesterday, but still has gross hematuria today. PAST MEDICAL AND SURGICAL HISTORY 1. Status post appendectomy. 2. Coronary artery disease, status post stent on April 10, 2018. 3. Cerebrovascular accident in March 2018 with minimal residual right-sided weakness that was a thrombotic stroke. 4. Hypertension. ALLERGIES: NONE KNOWN. CURRENT MEDICATIONS: Please refer to the MAR. REVIEW OF SYSTEMS: As consistent with the above in the history of present illness and past medical history. Otherwise, negative for all other systems. FAMILY HISTORY: Noncontributory to the active urological problems. SOCIAL HISTORY: The patient denies smoking, ethanol or drug use. He has a supportive alkutmef-gc-kij at the bedside. 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 PHYSICAL EXAMINATION GENERAL: A healthy-appearing 78-year-old man sitting up in bed in no apparent distress. VITALS: He is currently afebrile with vital signs currently stable. ABDOMEN: Soft, nondistended and nontender without costovertebral angle tenderness. Kidneys not palpable without hepatosplenomegaly. No obvious evidence of hernia. GENITOURINARY: Testes descended bilaterally. Testes and epididymis palpably normal. The patient has a normal uncircumcised male phallus with normal meatus without any lesion. Digital rectal examination is deferred at the present time. For the remaining physical examination systems, please refer to the ERT sheet and the admitting history and physical. LABORATORY STUDIES: Urine culture is pending. White blood cell count is low at 4460, hemoglobin is a little low at 12.8 and platelets are normal at 206,000. Creatinine is elevated at 1.26. Urinalysis significant for greater than 50 rbcs. PT is 15.7 with an INR of 1.15. ASSESSMENT 1. Leukopenia. 2. Mild anemia. 3. Acute versus chronic mild renal insufficiency. 4. Gross hematuria. 5. Gallstones noted on computerized tomography. 6. Bilateral renal cysts noted on computerized tomography. 7. BPH. 8. Possible bladder lesion versus blood clot versus prostate noted on computerized tomography. 9. Decreased urinary force of stream. 10. Nocturia times 1. PLAN 1. Hold Xarelto and any antiplatelets and anticoagulant drugs. 2. Serial urines. 3. Await the urine culture and sensitivity. 4. The patient needs cystoscopy and retrogrades possibly Wednesday because his blood thinning should be adequately reversed to safely take to the operating room at that time. Thank you very much for involving us in the care of your patient. Will be happy to follow him along with you, as well as an outpatient. Job#: [id number] RI cc:INGA HARDING MD
--- NOTE | 2018-08-25 13:41 | NUR ---
pt resting in bed denies any distress at this time pt ate lunch
[2018-08-25 15:15] VITALS: BP 151/79
--- NOTE | 2018-08-25 15:15 | NUR ---
report received from ER, patient arrived on floor in hospital bed, patient in no distress
[2018-08-25 15:30] VITALS: BP 151/79
[2018-08-25] MEDS ORDERED: PNEUMOCOCCAL VACCINE POLYVALENT 23 MCG/0.5 ML VIAL IM NR (17:00)
[2018-08-25] MEDS ORDERED: INFLUENZA VIRUS VAC SPLIT INJ 0.5 ML SYR IM NR (17:00)
--- NOTE | 2018-08-25 18:55 | NUR ---
rounded with the security shift supervisor nurse, patient aware of change, in no distress. call kunz within reach
--- NOTE | 2018-08-25 19:31 | History and Physical ---
HISTORY OF PRESENT ILLNESS: Xvykvsm-oohh-golb-old male who has a past medical history positive for NV and benign prostatic hypertrophy, status post TURP, status post PCI. Patient is having gross hematuria. REVIEW OF SYSTEMS: CARDIOVASCULAR: No chest pain, no palpitations. RESPIRATORY: No shortness of breath, no cough. GASTROINTESTINAL: No nausea, no vomiting, no diarrhea. GENITOURINARY: No frequency, no dysuria, but he has hematuria. ALLERGIES: HE IS NOT ALLERGIC TO ANY MEDICATION. SOCIAL HISTORY: He does not smoke. He does not drink. PAST MEDICAL HISTORY: Hypertension, benign prostatic hypertrophy, coronary artery disease status post PCI. PHYSICAL EXAMINATION: VITAL SIGNS: Heart rate is 55 per minute, respiratory rate is 18 per minute, oxygen saturation 97%. LABORATORY DATA: On the BMP, sodium 138, potassium 4.3, chloride 105, CO2 23, BUN 18, creatinine 1.26, glucose 119. On the CBC, white blood count 4.46, hemoglobin 12.8, hematocrit 38.6, platelet count 206,000. PT 15.7, INR 1.15, PTT 34.3. AST 30, ALT is 32, total bilirubin is 0.5, alkaline phosphatase 49. CT of the abdomen showed enlargement of the prostate and some lung nodules and gallstones. FINAL IMPRESSION: 1. Gross hematuria. 2. Mozcq-mb-anhgdak renal failure, stage 3. 3. Gallstones. 4. Acute anemia. 5. Hypertension. 6. History of coronary artery disease. PLAN OF TREATMENT: Urology consult with Dr. Fernandez. We are going to resume the lisinopril, hold the Xarelto. Patient is going to go for a cystoscopy and retrograde on Wednesday. CBC tomorrow. Oncology consult, Dr. Esquivel will be consulted for lung nodules. Job#: [id number]
[2018-08-25 19:49] VITALS: BP 140/73
[2018-08-25 23:34] VITALS: BP 140/73
[2018-08-26] VITALS (7 sets, daily range): BP systolic 92–153; BP diastolic 59–74
[2018-08-26 05:42] LABS: BASOPHILS % 0.8 % (0.0-1.0); EOSINOPHILS # (AUTO) 0.1 (0.0-0.4); EOSINOPHILS % 2.1 % (0.0-6.0); HEMATOCRIT 36.5 % (38.2-49.6); LYMPHOCYTES # (AUTO) 1.5 (1.0-3.2); LYMPHOCYTES % 28.9 % (18.0-39.1); MEAN CORPUSCULAR HEMOGLOBIN 29.1 pg (28-32); MEAN CORPUSCULAR HGB CONC 32.9 g/dL (31-35); MEAN CORPUSCULAR VOLUME 88.4 fL (81-99); MONOCYTES # (AUTO) 0.5 (0.2-0.8); MONOCYTES % 9.4 % (4.4-11.3); NEUTROPHILS % 58.6 % (38.7-80.0); PLATELET COUNT 203 x10e3/uL (140-360); RED BLOOD COUNT 4.13 x10e6/uL (4.3-5.7); RED CELL DISTRIBUTION WIDTH 14.3 % (11.7-14.4)
--- NOTE | 2018-08-26 05:55 | NUR ---
Called report to Natali on med/surge 2
[2018-08-26 06:07] LABS: ANION GAP 14.9 mmol/L (8-16); CALCIUM 8.9 mg/dL (8.4-10.2); CREATININE, SERUM 1.18 mg/dL (0.72-1.25); POTASSIUM 3.9 mmol/L (3.5-5.1)
--- NOTE | 2018-08-26 06:20 | NUR ---
received pt to room 211, resp even and unlabored, no c/o pain or discomfort, bed in lowest position and locked, call light in reach
--- NOTE | 2018-08-26 08:05 | NUR ---
patient resting in bed, AAOx3,denies any pain, no distress, son at bed side
--- NOTE | 2018-08-26 09:17 | Progress Note ---
DATE: August 26, 2018 I am covering for Dr. Ritter. Mr. Rico is a 78-year-old man with a history of coronary artery disease, status post stent, BPH, history of stroke came to the emergency room complaining of hematuria. Consult with Dr. Fernandez was requested. PHYSICAL EXAMINATION GENERAL: Today, he is awake and alert. VITALS: Temperature is 96, blood pressure 124/61. HEART: Regular rate. LUNGS: Clear to auscultation. ABDOMEN: Soft. BLOOD WORK: Potassium is 3.9, creatinine is 1.18, glucose 124. White count 5.12, hemoglobin 12, hematocrit 36.5. CT scan shows enlarged prostate and some gallstones and lung nodules. ASSESSMENT 1. Hematuria. 2. Kjujs-ly-detrvrp kidney disease, stage 3. 3. Acute anemia. 4. Cholelithiasis. 5. Hypertension. 6. Coronary artery disease, status post stent. 7. BPH. 8. History of stroke. PLAN: At the present time, we are awaiting for oncology consult with Dr. Esquivel for the lung nodules. Urology with Dr. Fernandez. Glenn is placed on hold for cystoscopy. All of this was discussed with the patient and family at bedside. All questions were answered to satisfaction. Job#: [id number] EWA
[2018-08-26] MEDS: LISINOPRIL 10 MG TAB PO SCH (10:14)
[2018-08-26] MEDS: CRESTOR 10MG PO SCH (10:14)
--- NOTE | 2018-08-26 10:42 | Diagnostic Imaging Report ---
ADDENDUM #1 Addendum: Left atrial enlargement. Echocardiogram could be obtained for further evaluation. Signed by: Dr. King Bennett MD on 08/26/2018 11:32 AM ORIGINAL REPORT EXAM: CT Chest WITHOUT contrast INDICATION: Pulmonary nodules COMPARISON: CT abdomen 08/24/2018, no report available TECHNIQUE: The Chest was scanned utilizing a multidetector helical scanner without the use of IV contrast. Coronal and sagittal reformations were obtained. IV CONTRAST: None COMPLICATIONS: None RADIATION DOSE: Total DLP: 498 mGy*cm Estimated effective dose: (DLP x 0.015 x size factor) mSv CTDIvol has been reviewed. It is below the limits set by the Radiation Protocol Committee (RPC). Appropriate CT dose reduction techniques were utilized. FINDINGS: Lines and Tubes: None. Lower Neck: 12 mm nodule right thyroid lobe. Heart and Great Vessels: The aorta and main pulmonary artery measure 38 and 21 mm. respectively. No pericardial effusion. Mild three-vessel coronary vascular calcifications with PCI mid LAD. Transverse diameter left atrium 50 mm. Lymph Nodes: Partially calcified mediastinal and hilar lymph nodes. Lungs: No pneumothorax or pleural effusion identified. Trachea and central bronchi are unremarkable. Atelectasis present lung bases. Minimal centrilobular emphysematous change suspected. There is a 15 mm irregular nodule right lower lobe series 3 image 73. 8 mm nodule right lower lobe series 3 image 69. Upper abdomen: Please see recent CT abdomen. Bones and Soft Tissues: No acute findings. IMPRESSION: 1. 15 mm and 8 mm irregular nodules right lower lobe. Given findings in the urinary bladder on recent abdominal CT, metastatic disease favored. Tissue diagnosis recommended. 2. Minimal centrilobular emphysematous change. 3. Evidence prior granulomatous disease. 4. Hypodensity right thyroid lobe. Ultrasound recommended. Signed by: Dr. King Bennett MD on 08/26/2018 10:39 AM
--- NOTE | 2018-08-26 18:40 | NUR ---
Patient sitting up in chair, denies any pain, no distress noted, family at bed side
[2018-08-27] VITALS (7 sets, daily range): BP systolic 101–133; BP diastolic 61–98
--- NOTE | 2018-08-27 08:06 | NUR ---
patient sitting up in chair, no distress noted, call light in reach, denies any pain, family at bed side
[2018-08-27] MEDS: CRESTOR 10MG PO SCH (09:08)
[2018-08-27] MEDS: LISINOPRIL 10 MG TAB PO SCH (09:08)
--- NOTE | 2018-08-27 17:52 | NUR ---
patient sitting up in recliner, tolerated with dinner, not in any distress,
--- NOTE | 2018-08-27 19:20 | NUR ---
PATIENT RECEIVED. PATIENT IS RESTING IN BED, AAOX3. RESP EVEN AND UNLABORED. NO ACUTE DISTRESS NOTED. PATIENT DENIES OF ANY PAIN OR DISCOMFORT. TELE IN PLACE. CALL LIGHT WITHIN REACH. INSTRUCT TO CALL FOR ASSISTANCE. BED LOW/LOCKED. CONTINUE TO MONITOR CLOSELY
[2018-08-28] VITALS (7 sets, daily range): BP systolic 107–139; BP diastolic 58–75
[2018-08-28 05:18] LABS: BASOPHILS % 0.4 % (0.0-1.0); EOSINOPHILS # (AUTO) 0.1 (0.0-0.4); EOSINOPHILS % 2.4 % (0.0-6.0); HEMATOCRIT 35.5 % (38.2-49.6); HEMOGLOBIN 11.7 g/dL (14.0-18.0); LYMPHOCYTES # (AUTO) 1.4 (1.0-3.2); LYMPHOCYTES % 26.5 % (18.0-39.1); MEAN CORPUSCULAR HEMOGLOBIN 29.3 pg (28-32); MONOCYTES # (AUTO) 0.5 (0.2-0.8); MONOCYTES % 9.4 % (4.4-11.3); NEUTROPHILS # (AUTO) 3.1 (2.1-6.9); NEUTROPHILS % 60.9 % (38.7-80.0); PLATELET COUNT 189 x10e3/uL (140-360); RED BLOOD COUNT 3.99 x10e6/uL (4.3-5.7); RED CELL DISTRIBUTION WIDTH 14.1 % (11.7-14.4)
[2018-08-28 05:52] LABS: ALBUMIN 3.4 g/dL (3.5-5.0); ALBUMIN/GLOBULIN RATIO 1.1 (0.8-2.0); CALCIUM 8.6 mg/dL (8.4-10.2); CREATININE, SERUM 1.18 mg/dL (0.72-1.25)
--- NOTE | 2018-08-28 07:10 | NUR ---
RCD PT AT BED PT IS ALERT AND ORIENTED ASSESSMENT DONE PT RESTING ON BED IV PATENT FAMILY AT BED SIDE BED LOW BED LOW AND LOCKED CALL LIGHT IN REACH
[2018-08-28] MEDS: LISINOPRIL 10 MG TAB PO SCH (09:00)
[2018-08-28] MEDS: CRESTOR 10MG PO SCH (09:00)
--- NOTE | 2018-08-28 18:43 | NUR ---
PT RESTING ON BED BED SIDE REPORT GIVEN TO ONCOMING NURSE
[2018-08-29] VITALS (8 sets, daily range): BP systolic 106–153; BP diastolic 56–87
[2018-08-29 05:17] LABS: BASOPHILS % 0.5 % (0.0-1.0); EOSINOPHILS # (AUTO) 0.1 (0.0-0.4); EOSINOPHILS % 2.3 % (0.0-6.0); HEMATOCRIT 35.5 % (38.2-49.6); HEMOGLOBIN 11.8 g/dL (14.0-18.0); LYMPHOCYTES # (AUTO) 1.6 (1.0-3.2); LYMPHOCYTES % 28.3 % (18.0-39.1); MEAN CORPUSCULAR HEMOGLOBIN 29.6 pg (28-32); MEAN CORPUSCULAR HGB CONC 33.2 g/dL (31-35); MONOCYTES # (AUTO) 0.6 (0.2-0.8); NEUTROPHILS # (AUTO) 3.3 (2.1-6.9); NEUTROPHILS % 58.5 % (38.7-80.0); PLATELET COUNT 185 x10e3/uL (140-360); RED BLOOD COUNT 3.99 x10e6/uL (4.3-5.7); RED CELL DISTRIBUTION WIDTH 14.1 % (11.7-14.4)
[2018-08-29 05:31] LABS: INR 1.04; PROTHROMBIN TIME 14.5 seconds (11.9-14.5)
[2018-08-29 05:44] LABS: ALBUMIN 3.5 g/dL (3.5-5.0); ALBUMIN/GLOBULIN RATIO 1.2 (0.8-2.0); ANION GAP 12.1 mmol/L (8-16); CALCIUM 8.6 mg/dL (8.4-10.2); CREATININE, SERUM 1.22 mg/dL (0.72-1.25); POTASSIUM 4.1 mmol/L (3.5-5.1)
[2018-08-29] MEDS: CRESTOR 10MG PO SCH (08:09)
[2018-08-29] MEDS: LISINOPRIL 10 MG TAB PO SCH (08:10)
--- NOTE | 2018-08-29 10:14 | Consultation ---
DATE OF CONSULTATION: August 26, 2018 CONSULTATION TO: Dr. Harding Mr. Rico is a 78-year-old male who has been referred to me for evaluation of a lesion in the lung. The patient had presented with hematuria possibly related to Xarelto. History of having had an DE in the past. History of BPH. History of TURP. SOCIAL HISTORY: Noncontributory. FAMILY HISTORY: Noncontributory. ALLERGIES: REPORTED NONE. MEDICATIONS AT THIS TIME 1. Lisinopril. 2. Atorvastatin. REVIEW OF SYSTEMS HEENT: Normal. CARDIAC: History of cardiac disease. History of hypertension. RESPIRATORY: Normal. GI: Normal. : History of BPH for which he had TURP in the past. MUSCULOSKELETAL: Normal. NEUROENDOCRINE: Normal. PHYSICAL EXAMINATION GENERAL: Moderately built male. No palpable adenopathy. HEART: Within normal limits. LUNGS: Clear. ABDOMEN: Obese. RECTAL: Exam deferred. CENTRAL NERVOUS SYSTEM: Essentially normal. EXTREMITIES: Essentially normal. LABS: Investigations of interest show the patient to have a hemoglobin of 12.8, hematocrit 38.6, white count of 4400. Platelets reported at 206,000. Chemistry: Sodium of 138, potassium 4.3, chloride 105, CO2 23, BUN 18, creatinine 1.26. The BUN and creatinine are 16 and 1.22 on 08/29/2018. Total protein is low at 6.4. Albumin low at 3.4. CAT scan of the abdomen was done, which showed the patient to have a gallstone, large ill-defined soft-tissue density in the urinary bladder, enlarged prostate gland indenting the base of the bladder, pulmonary nodule in right lower lobe concerning for metastasis 1.8 cm. IMPRESSION 1. History of BPH. 2. History of transurethral resection of the prostate. 3. Hematuria. 4. Hypertension. 5. Coronary artery disease. 6. Cholelithiasis. 7. Anticoagulated with Xarelto. 8. Anemia of blood loss. 9. Possible urinary tract infection. 10. History of diverticulosis coli. 11. Right pulmonary nodules, 7 mm and 15 mm, confirmed by CAT scan of the chest also. 12. Sclerotic foci in the pelvis. 13. History of stroke. 14. History of stenting for coronary artery disease. PLAN, COMMENTS AND SUGGESTIONS: The patient does have a pulmonary nodule confirmed by the CAT scan. After the holidays, this should be biopsied. Urology has been consulted. I would leave the urological workup up to the urologist. I will be more than happy to arrange for the biopsy if the attending would allow me to after the holidays. Thank you very much for allowing me to participate in the management of this patient. Restarting Xarelto will be the decision of the cable former. I suggested to the family to make sure that they keep in touch with the cable former. Job#: [id number] cc:INGA HARDING MD
[2018-08-29] MEDS: D5.45%NS/KCL 20MEQ 1,000 ML IV SCH ×2 (11:41→21:19)
--- NOTE | 2018-08-29 13:06 | Progress Note ---
DATE: INTERNAL MEDICINE PROGRESS NOTE SUBJECTIVE: Patient is doing well. The hematuria resolved. He is about to undergo cystoscopy evaluation by Dr. Fernandez. PHYSICAL EXAMINATION VITAL SIGNS: Blood pressure 120/73. Temperature is 96.3. Heart rate 52 per minute. Respiratory rate is 19 per minute. Oxygen saturation is 96%. HEART: Regular rhythm. Normal S1 and S2 sounds. LUNGS: Clear bilaterally. ABDOMEN: Soft. EXTREMITIES: No evidence of cyanosis, edema or trauma. BLOOD WORK: BMP: Sodium 138, potassium 4.1, chloride 106, CO2 24, BUN 16, creatinine 1.22, glucose 120. On the CBC, white blood count 5.61, hemoglobin 11.8, hematocrit 35.5, platelet count 195,000. PT 14.5, PTT 34.3, INR 1.04. AST 23, ALT 24, total bilirubin 0.6, alkaline phosphatase 42. FINAL IMPRESSION 1. Episode of hematuria. 2. Multiple nodules on the lungs, rule out metastatic disease. 3. History of coronary artery disease. 4. Bladder mass, rule out benign prostatic hypertrophy versus tumor. 5. Acute renal insufficiency. 6. Mild anemia. PLAN OF TREATMENT: Continue with IV fluids with D5 normal saline and potassium at 100 mL an hour. Lisinopril 10 mg daily. Crestor 10 mg daily. Patient will undergo cystoscopy evaluation today to find out the reason why he is having the hematuria. Job#: [id number]
[2018-08-29] MEDS ORDERED: LIDOCAINE HCL 2% LOCAL INJ 5 ML SDV VIAL INJ ONE (14:28)
[2018-08-29] MEDS ORDERED: PROPOFOL IV EMULSION 10 MG/ML 20 ML VIAL ONE (14:28)
[2018-08-29] MEDS ORDERED: DEXAMETHASONE SOD PHOS INJ 4 MG/ML VIAL ONE (14:28)
[2018-08-29] MEDS ORDERED: ONDANSETRON HCL INJ 2 MG/ML VIAL ONE (14:28)
[2018-08-29] MEDS ORDERED: SEVOFLURANE INHAL SOLN 250 ML PEN BTL ONE (14:28)
[2018-08-29] MEDS ORDERED: FENTANYL CITRATE/PF 100MCG/2 ML INJ ONE (14:31)
[2018-08-29] MEDS ORDERED: IOPAMIDOL 610MG/1ML 300 MG/ML VIAL IV ONE (17:57)
--- NOTE | 2018-08-29 18:05 | NUR ---
pt off unit for cystoscopy. son accompanied patient
[2018-08-29] MEDS ORDERED: BELLADONNA/OPIUM 30 MG SUPP RC ONE (19:09)
[2018-08-29] MEDS ORDERED: PHENAZOPYRIDINE HCL 100 MG TAB PO ONE (19:30)
[2018-08-29] MEDS ORDERED: BELLADONNA/OPIUM 60 MG SUPP PR PRN (19:30)
[2018-08-29] MEDS: CEFTRIAXONE SOD 1 GM VIAL IV SCH (19:30)
[2018-08-29] MEDS ORDERED: CEFTRIAXONE SOD 1 GM/NS 50 ML 50 ML IV ONE (19:32)
--- NOTE | 2018-08-29 20:20 | NUR ---
PATIENT BACK TO UNIT. POLLOCK IN PLACE, BRIGHT RED URINE NOTED. PATIENT IS RESTING IN BED. RESP EVEN AND UNLABORED. NO ACUTE DISTRESS NOTED. TELE IN PLACE. CALL LIGHT WITHIN REACH. INSTRUCT TO CALL FOR ASSISTANCE. BED LOW/LOCKED. CONTINUE TO MONITOR CLOSELY
--- NOTE | 2018-08-29 21:35 | NUR ---
IRRIGATED BLADDER PER MD ORDER, SOME BLOOD CLOT NOTED. PATIENT TOLERATED WELL
[2018-08-30] VITALS (7 sets, daily range): BP systolic 114–153; BP diastolic 62–85
--- NOTE | 2018-08-30 00:51 | NUR ---
IRRIGATED BLADDER PER MD ORDER, SOME BLOOD CLOT NOTED. PATIENT TOLERATED WELL
--- NOTE | 2018-08-30 05:19 | NUR ---
IRRIGATED BLADDER PER MD ORDER, SOME BLOOD CLOT NOTED. PATIENT TOLERATED WELL
[2018-08-30 05:24] LABS: BASOPHILS % 0.2 % (0.0-1.0); HEMATOCRIT 34.3 % (38.2-49.6); HEMOGLOBIN 11.3 g/dL (14.0-18.0); LYMPHOCYTES # (AUTO) 0.7 (1.0-3.2); LYMPHOCYTES % 13.5 % (18.0-39.1); MEAN CORPUSCULAR HEMOGLOBIN 29.6 pg (28-32); MEAN CORPUSCULAR HGB CONC 32.9 g/dL (31-35); MEAN CORPUSCULAR VOLUME 89.8 fL (81-99); MONOCYTES # (AUTO) 0.2 (0.2-0.8); MONOCYTES % 2.7 % (4.4-11.3); NEUTROPHILS # (AUTO) 4.6 (2.1-6.9); NEUTROPHILS % 83.2 % (38.7-80.0); PLATELET COUNT 181 x10e3/uL (140-360); RED BLOOD COUNT 3.82 x10e6/uL (4.3-5.7); RED CELL DISTRIBUTION WIDTH 13.8 % (11.7-14.4)
[2018-08-30 05:45] LABS: ANION GAP 13.3 mmol/L (8-16); CALCIUM 8.4 mg/dL (8.4-10.2); CREATININE, SERUM 1.3 mg/dL (0.72-1.25); POTASSIUM 4.3 mmol/L (3.5-5.1)
[2018-08-30] MEDS: D5.45%NS/KCL 20MEQ 1,000 ML IV SCH ×2 (07:15→17:50)
--- NOTE | 2018-08-30 07:25 | NUR ---
RECD PT IN BED AWAKE ,MARIS LOW TO BSD BLOOD URINE
[2018-08-30] MEDS: LISINOPRIL 10 MG TAB PO SCH (08:45)
[2018-08-30] MEDS: PHENAZOPYRIDINE HCL 100 MG TAB PO SCH ×3 (08:45→17:50)
[2018-08-30] MEDS: CRESTOR 10MG PO SCH (08:45)
--- NOTE | 2018-08-30 16:00 | Progress Note ---
DATE: INTERNAL MEDICINE PROGRESS NOTE SUBJECTIVE: The patient is having hematuria. He has cystoscopy done by Dr. Fernandez. He was found to have very large prostate with active oozing with obstructive prostatic urethra. PHYSICAL EXAM VITAL SIGNS: Blood pressure 115/70, temperature 95.5, heart rate 60 per minute, respiratory rate 19 per minute, ox saturation 94%. HEART: Regular rate and rhythm. Normal S1 and S2 sounds. LUNGS: Clear bilaterally. ABDOMEN: Soft. EXTREMITIES: No evidence of cyanosis, edema, or trauma. LABORATORY: On the BMP; sodium 134, potassium 4.3, chloride 105, CO2 of 20, BUN 18, creatinine 1.30, glucose 298. CBC showed white blood count 5.49, hemoglobin 9.3, hematocrit 34.3, and platelet count 181,000. PT 14.5, INR 1.04, PTT 31.3. AST 23, ALT 24, total bilirubin 0.6, and alkaline phosphatase 42. FINAL IMPRESSION 1. Episode of gross hematuria, most likely to coming from the very enlarged prostate with active bleeding. 2. [id number] renal failure, stage 3. 3. 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 4. Lung nodules, rule out metastasis. 5. Mild anemia. PLAN OF TREATMENT: Patient is going to get TURP on , possible lung biopsy tomorrow. Continue with D5 normal saline with potassium at 100 mL an hour. Lisinopril 10 mg daily, Crestor 40 mg daily, Rocephin 1 gram IV daily, and Pyridium 100 mg daily. Cardiac cath resume at the bedside. Time spent 45 minutes. Job#: [id number] TRICIA
[2018-08-30] MEDS ORDERED: CEFTRIAXONE SOD 1 GM/NS 50 ML 50 ML IV ONE (18:21)
[2018-08-30] MEDS: CEFTRIAXONE SOD 1 GM VIAL IV SCH (20:44)
[2018-08-31] VITALS (7 sets, daily range): BP systolic 112–128; BP diastolic 58–77
[2018-08-31] MEDS: D5.45%NS/KCL 20MEQ 1,000 ML IV SCH ×3 (01:50→16:00)
[2018-08-31 05:10] LABS: BASOPHILS % 0.3 % (0.0-1.0); EOSINOPHILS # (AUTO) 0.1 (0.0-0.4); EOSINOPHILS % 0.9 % (0.0-6.0); HEMOGLOBIN 10.6 g/dL (14.0-18.0); LYMPHOCYTES # (AUTO) 1.2 (1.0-3.2); LYMPHOCYTES % 18.6 % (18.0-39.1); MEAN CORPUSCULAR HEMOGLOBIN 29.7 pg (28-32); MEAN CORPUSCULAR HGB CONC 33.1 g/dL (31-35); MEAN CORPUSCULAR VOLUME 89.6 fL (81-99); MONOCYTES # (AUTO) 0.5 (0.2-0.8); NEUTROPHILS # (AUTO) 4.9 (2.1-6.9); NEUTROPHILS % 72.9 % (38.7-80.0); PLATELET COUNT 167 x10e3/uL (140-360); RED BLOOD COUNT 3.57 x10e6/uL (4.3-5.7); RED CELL DISTRIBUTION WIDTH 13.8 % (11.7-14.4)
--- NOTE | 2018-08-31 07:46 | NUR ---
PT RECEIVED IN BED, NPO STATUS MAINTAINED
[2018-08-31] MEDS: CRESTOR 10MG PO SCH (09:00)
[2018-08-31] MEDS: LISINOPRIL 10 MG TAB PO SCH (09:00)
[2018-08-31] MEDS: PHENAZOPYRIDINE HCL 100 MG TAB PO SCH ×3 (09:00→16:32)
--- NOTE | 2018-08-31 11:07 | Progress Note ---
DATE: INTERNAL MEDICINE PROGRESS NOTE SUBJECTIVE: The patient is going for a lung biopsy today and TURP tomorrow. PHYSICAL EXAMINATION VITAL SIGNS: Blood pressure 112/69, temperature 99.1. Heart rate 54 per minute. Respiratory rate 18 per minute. Oxygen saturation 97%. HEART: Regular rhythm. Normal S1, S2 sounds. LUNGS: Clear bilaterally. ABDOMEN: Soft. EXTREMITIES: No evidence of cyanosis, edema or trauma. BLOOD WORK: BMP: Sodium 134, potassium 4.3, chloride 105, CO2 20, BUN 18, creatinine 1.30. Glucose 298. CBC: White blood count 6.68; hemoglobin 10.6; hematocrit 32.0; platelet count 167,000. PT 14.5, INR 1.04, PTT 34.3. AST 23, ALT 24, total bilirubin 0.6, alkaline phosphatase 42. Total bilirubin 0.6. FINAL IMPRESSION 1. Gross hematuria, which has resolved. He is off the blood thinners. 2. Lung nodules. He is going for a lung biopsy today. 3. Enlarged prostate. He is going for a transurethral resection of the prostate tomorrow. We are going to continue IV fluids. Continue lisinopril 10 mg daily, Crestor 40 mg daily, belladonna and opium 60 mg q.6 h., ceftriaxone 1 gram IV daily, Pyridium 100 mg daily. He is taking potassium with D5 normal saline at 100 mL an hour. Job#: [id number]
[2018-08-31] MEDS ORDERED: IOPAMIDOL 610MG/1ML 300 MG/ML VIAL IV ONE (12:24)
[2018-08-31] MEDS ORDERED: BELLADONNA/OPIUM 30 MG SUPP RC ONE (12:24)
--- NOTE | 2018-08-31 13:10 | NUR ---
PT LEFT FOR A PROCEDURE THIS MORNING AND LATER GOT A CALL THAT HE WILL NOT BE COMING BACK ON THE FLOOR BECAUSE HE WILL BE TRANSFERRED TO MED SURG 1.
[2018-08-31] MEDS ORDERED: LIDOCAINE HCL 2% LOCAL INJ 5 ML SDV VIAL INJ ONE (13:36)
[2018-08-31] MEDS ORDERED: ONDANSETRON HCL INJ 2 MG/ML VIAL ONE (13:36)
[2018-08-31] MEDS ORDERED: SEVOFLURANE INHAL SOLN 250 ML PEN BTL ONE (13:36)
[2018-08-31] MEDS ORDERED: PROPOFOL IV EMULSION 10 MG/ML 20 ML VIAL ONE (13:36)
[2018-08-31] MEDS ORDERED: DEXAMETHASONE SOD PHOS INJ 4 MG/ML VIAL ONE (13:36)
--- NOTE | 2018-08-31 15:20 | NUR ---
Received patient from procedure via bed. AAOX4 to time, person, place, situation. Respirations even and unlabored. O2 2L NC. 24 F koch draining bloody tinged urine. Oriented patient to room. Instructed to use call light for assistance. Voiced understanding.
[2018-08-31] MEDS ORDERED: FENTANYL CITRATE/PF 100MCG/2 ML INJ ONE (15:33)
[2018-08-31] MEDS ORDERED: MORPHINE SULFATE INJ 10 MG/ML ONE (15:33)
--- NOTE | 2018-08-31 16:01 | NUR ---
DR. VALVERDE,O ORDERS FOR A PICC LINE PLACEMENT FOR EXECUTIVE ASSISTANT TO GENERAL COUNSEL ANTIBIOTICS, PT FAMILY NOTIFIED AND CONSENT SIGNED BY . RADIOLOGY NOTIFIED, AWAITING PLACEMENT. Addendum: 08/31/18 at 1636 by Arsen Santamaria RN DISREGARD THE ABOVE NOTES, WRONG ENTRY
--- NOTE | 2018-08-31 19:00 | NUR ---
Report given to oncoming nurse of patient's status. No s/s of acute distress noted.
[2018-08-31] MEDS: CEFTRIAXONE SOD 1 GM/NS 50 ML 50 ML IV SCH (20:15)
--- NOTE | 2018-08-31 20:25 | NUR ---
Continuous bladder irrigation ongoing at this time. Light tavares colored urine draining in koch catheter bag. Pt denies any distress/discomfort. Pt is scheduled for lung biopsy tomorrow. Pt is aware. Will continue to monitor.
[2018-09-01] VITALS: BP 111/65
[2018-09-01 04:00] VITALS: BP 117/60
[2018-09-01 07:22] LABS: BASOPHILS % 0.4 % (0.0-1.0); EOSINOPHILS % 0.2 % (0.0-6.0); HEMATOCRIT 35.2 % (38.2-49.6); HEMOGLOBIN 11.4 g/dL (14.0-18.0); LYMPHOCYTES # (AUTO) 1.4 (1.0-3.2); MEAN CORPUSCULAR HEMOGLOBIN 29.6 pg (28-32); MEAN CORPUSCULAR HGB CONC 32.4 g/dL (31-35); MEAN CORPUSCULAR VOLUME 91.4 fL (81-99); MONOCYTES # (AUTO) 0.8 (0.2-0.8); MONOCYTES % 9.3 % (4.4-11.3); NEUTROPHILS % 72.6 % (38.7-80.0); PLATELET COUNT 171 x10e3/uL (140-360); RED BLOOD COUNT 3.85 x10e6/uL (4.3-5.7)
[2018-09-01 07:45] LABS: ANION GAP 11.7 mmol/L (8-16); BLOOD UREA NITROGEN 13 mg/dL (7-26); BUN/CREATININE RATIO 12 (6-25); CALCIUM 8.3 mg/dL (8.4-10.2); CARBON DIOXIDE 23 mmol/L (22-29); CHLORIDE 104 mmol/L (98-107); CREATININE, SERUM 1.08 mg/dL (0.72-1.25); EST GLOMERULAR FILTRATION RATE > 60 ML/MIN (60-); GLUCOSE 213 mg/dL (74-118); POTASSIUM 4.7 mmol/L (3.5-5.1); SODIUM 134 mmol/L (136-145)
[2018-09-01 08:43] VITALS: BP 115/66
--- NOTE | 2018-09-01 08:46 | NUR ---
Patient alert and responsive, no resp distress, VSS, no c/o pains, Gar in place s/p TURP with continuous bladder irrigation, urine pink in color, patient NPO for lung biopsy to be done and picked up at this time
--- NOTE | 2018-09-01 09:00 | NUR ---
0900am received pt in Radiology dept IdentifierX2. Lung biopsy with conscious sedation. Family at bedside stating left biopsy was requested. Stop was performed and Radiologist Seng Melvin and Family reviewed CT tests in reading room and confirmed Right upper lobe would be biopsy to evaluate nodule. Consents adjusted and confirmed with pt who cosigned.Family also consigned agreement for Right Biopsy(Core) and or Fine needle aspiration. With Conscious sedation to be given by Radiology staff. Procedure was completed with needle out at 1150 Monitored to 12n in Nursing bay with vs stable and site w/o bleeding. Left iv had 200cc NS infused to instill sedation meds(25 fentynl and 1mg versed iv)Sats remained stable as well as capnography readings intraprocedural. 1230 returned to floor care with phone and face to face handoff.Vs stable in sinus kathrine with telemetry on for transport. Report to tele room remain in sinus kathrine fully back to baseline. Update was given to family.Iv site w/o s/s infiltration 1500cc emptied from koch bag in radiology . Stable w/o c/o or distress.Call light and side rails up with receiving nurse at bedside when transfer was completed back to Rm 107 Pt denies pain.POC reviewed with bedside nurse.
[2018-09-01] MEDS ORDERED: FENTANYL CITRATE/PF 100MCG/2 ML INJ ONE (09:11)
[2018-09-01] MEDS ORDERED: MIDAZOLAM HCL 2 MG/2 ML VIAL ONE (09:11)
[2018-09-01] MEDS ORDERED: SODIUM CHLORIDE 0.9% 500ML 500 ML ONE (09:48)
[2018-09-01] MEDS: D5.45%NS/KCL 20MEQ 1,000 ML IV SCH ×2 (10:05→19:15)
--- NOTE | 2018-09-01 11:12 | Progress Note ---
DATE: September 01, 2018 INTERNAL MEDICINE PROGRESS NOTE SUBJECTIVE: The patient is going for a TURP today. PHYSICAL EXAMINATION: Blood pressure 115/66. Temperature is 96.5, heart rate 52 per minute, respiratory rate 18 per minute, oxygen saturation 99%. FINAL IMPRESSION 1. Enlarged prostate. 2. Lung nodules. 3. Hematuria, which is resolved. 4. Hypertension. PLAN OF TREATMENT: Patient is undergoing a TURP right now. He is in the OR. He is going to get a lung biopsy also. Job#: [id number]
[2018-09-01] MEDS: LISINOPRIL 10 MG TAB PO SCH (12:30)
[2018-09-01] MEDS: PHENAZOPYRIDINE HCL 100 MG TAB PO SCH ×3 (12:30→17:34)
[2018-09-01] MEDS: CRESTOR 10MG PO SCH (12:30)
--- NOTE | 2018-09-01 12:58 | Diagnostic Imaging Report ---
ADDENDUM #1 Addendum: Conscious sedation time was 45 minutes or less. Dose reduction techniques used: Automated exposure control, adjustment of the mAs and/or kVp according to patient size, standardized low-dose protocol, and/or iterative reconstruction technique. Signed by: Dr. Seng Melvin DO on 09/12/2018 9:38 AM ORIGINAL REPORT Exam: CT-guided right lower lobe pulmonary nodule FNA and core biopsy dated 09/01/2018. History: There are 2 right lower lobe pulmonary nodules in a patient with no known primary. Comparison: CT scan of the chest dated 08/26/2018 Sedation: Patient received 1 mg of Versed and 25 mcg of Fentanyl. He was continuously monitored during the procedure and following the procedure. DLP: 1347.31 mGy-cm Findings: Axial scans were performed through the region of the right lower lobe pulmonary nodule. Local anesthesia with 1% Xylocaine was accomplished. A 19-gauge guiding needle was then placed into the largest 1.8 cm right lower lobe pulmonary nodule. Through the guiding needle a 20-gauge Chiba needle was utilized to perform a single FNA. Six core biopsies through the guiding needle utilizing a 20-gauge biopsy gun were also performed. Specimens were evaluated by the attending Pathologist who deemed the specimens adequate for diagnosis. Patient tolerated the procedure well. Post biopsy full chest scans show no evidence of a pneumothorax. There is some hemorrhage around the nodule that was biopsied. Impression: Successful FNA and core biopsy of a right lower lobe pulmonary nodule. Signed by: Dr. Seng Melvin DO on 09/01/2018 12:55 PM
--- NOTE | 2018-09-01 13:02 | NUR ---
Patient returned from lung biopsy, Post biopsy full chest scans show no evidence of a pneumothorax, in room, VSS, no c/o pains, having lunch at this time and call light within reach
[2018-09-01 13:05] VITALS: BP 145/74
--- NOTE | 2018-09-01 13:47 | NUR ---
Attempted to visit pt yesterday and today; pt out of room for procedure. Will revisit tomorrow.
--- NOTE | 2018-09-01 15:08 | Progress Note ---
DATE: INTERNAL MEDICINE PROGRESS NOTE SUBJECTIVE: Patient underwent a TURP and a lung biopsy. He is doing well. PHYSICAL EXAM: VITAL SIGNS: Blood pressure 115/66. Temperature 96.0. Heart rate 52 per minute. Respiratory rate 18 per minute. Oxygen saturation 99%. HEART: Shows regular rhythm. Normal S1 and S2 sounds. LUNGS: Clear bilaterally. ABDOMEN: Soft. EXTREMITIES: Show no evidence of cyanosis, edema or trauma. On the BMP: Sodium 134, potassium 4.7, chloride 104, CO2 23, BUN 13, creatinine 1.08, glucose 213. On the CBC: White blood count 8.25, hemoglobin 11.4, hematocrit 35.2, platelet count 171,000. PT 14.5, INR 1.04, PTT 34.3. AST 23, ALT 24, total bilirubin 0.6, alkaline phosphatase 42. FINAL IMPRESSION: 1. Enlarged prostate with hematuria, status post transurethral resection of the prostate. 2. Lung nodule, status post lung biopsy. 3. Hypertension. 4. Hypercholesterolemia. PLAN OF TREATMENT: We are going to repeat a CBC tomorrow. Continue Rocephin 2 grams IV once a day. Continue potassium with D5 normal saline at 100 mL an hour. Lisinopril 10 mg daily. Crestor 40 mg daily. Belladonna with opium 60 mg q.6 hours. Pyridium 100 mg daily. We are going to follow the reports on the lung biopsy probably as an outpatient. Job#: [id number] EV
--- NOTE | 2018-09-01 15:14 | NUR ---
SOCIAL WORK INITIAL ASSESSMENT Hired Worker to bedside to discuss plan of care with patient/family. CM/SW role and care transitions discussed. Anticipated discharge plan discussed along with duration of care. CM/SW discussed patients right to make decisions in care. CM/SW work hours given. Patient lives: IN OWN HOUSE WITH FAMILY Admit/Transfer: VIA HOME POA/Emergency contact: ISSA TAVAREZ [phone] Current/Previous Home Health: NONE PCP/Follow-up Care: [facility] Current/Previous DME: NONE Other Services: NONE Employment Status: [employer] Areas of Concerns: NONE Referral Needs: NONE Education Needs: NONE IMM/MARQUIS given and signed (if applicable): NA Goal for discharge: RETURN HOME INDEPENDENTLY CM/SW left business card at the bedside with contact information. Name and number was also written on the patients whiteboard. Patient verbalized understanding of discussion. CM will follow-up with ongoing discharge and transition of care needs.
[2018-09-01 17:09] VITALS: BP 131/62
[2018-09-01] MEDS ORDERED: MORPHINE SULFATE 2 MG/ML SYR IV PRN (20:45)
[2018-09-01] MEDS: CEFTRIAXONE SOD 1 GM/NS 50 ML 50 ML IV SCH (21:05)
--- NOTE | 2018-09-01 22:15 | NUR ---
Pt sitting on the chair next to bed. Denies any distress/discomfort. 3way Gar with continuous bladder irrigation in place, draining orang/pink tinged urine. No visible clots. Call light within reach. Will continue to monitor.
[2018-09-01 23:00] VITALS: BP 118/68
[2018-09-02] VITALS (9 sets, daily range): BP systolic 107–137; BP diastolic 58–72
[2018-09-02] MEDS: D5.45%NS/KCL 20MEQ 1,000 ML IV SCH ×2 (05:15→14:45)
[2018-09-02] MEDS: LISINOPRIL 10 MG TAB PO SCH (09:00)
[2018-09-02] MEDS: PHENAZOPYRIDINE HCL 100 MG TAB PO SCH ×3 (09:18→17:31)
[2018-09-02] MEDS: CRESTOR 10MG PO SCH (09:18)
--- NOTE | 2018-09-02 14:00 | NUR ---
pt having leakage from FC at penis. continues to drain to bag. notified MD. per MD, give b&o supp and manually irrigate FC.
[2018-09-02] MEDS ORDERED: BELLADONNA/OPIUM 30 MG SUPP RC ONE (14:15)
[2018-09-02] MEDS ORDERED: BELLADONNA/OPIUM 60 MG SUPP PR ONE (14:15)
--- NOTE | 2018-09-02 15:10 | Progress Note ---
DATE: INTERNAL MEDICINE PROGRESS NOTE The patient still has hematuria and some leaking around the Gar catheter. PHYSICAL EXAMINATION VITALS: Blood pressure 111/64, temperature 97.7, heart rate 70 per minute, respiratory rate 18 per minute, oxygen saturation 96%. HEART: Regular rhythm. Normal S1 and S2 sounds. LUNGS: Clear bilaterally. ABDOMEN: Soft. EXTREMITIES: Show no evidence of cyanosis or trauma. On the BMP, sodium 134, potassium 4.7, chloride 104, CO2 23, BUN 13, creatinine 1.08, glucose 213. On the CBC, white blood count 8.25, hemoglobin 11.4, hematocrit 35.2, and platelet count 171,000. PT 14.5, INR 1.04, PTT 34.3. AST 23, ALT 24, total bilirubin 0.6, alkaline phosphatase 42. FINAL IMPRESSION 1. Hematuria. 2. Benign prostatic hypertrophy, status post transurethral resection of prostate. 3. Lung nodule, status post biopsy. 4. Mild anemia. 5. Hypercholesterolemia. PLAN OF TREATMENT: Continue with the bladder irrigation. Rocephin 1 g IV q.24 h. Potassium chloride with dextrose and normal saline at 100 mL an hour. Lisinopril 10 mg daily. Crestor 40 mg daily. Belladonna and opium 60 mg q.6 h. Pyridium 100 mg daily. Continue with the bladder irrigation. He is going to have a voiding trial tomorrow and see how he does. Job#: [id number] NH
--- NOTE | 2018-09-02 15:14 | NUR ---
Nutrition Screen Note RD Recommendation for Physician: -Continue cardiac diet as ordered Plan of Care: RD following, monitoring for tolerance and adequacy Nutrition reason for involvement: LOS Primary Diagnose(s): 1. Enlarged prostate with hematuria, status post transurethral resection of the prostate. 2. Lung nodule, status post lung biopsy. PMH: NH and benign prostatic hypertrophy, status post TURP, status post PCI Ht: 67in Wt: 185.12lb BMI: 29kg/m2 IBW: 148lb RD Assessment: (09/02) Chart reviewed. Labs and meds reviewed. 78yo M, who is admitted for hematuria. Visited pt in the room. Tanz[place] speaking only. Grandson presents on bedside to translate. Pt reports good appetite with 100% recorded PO intake. No GI complains noted. LBM 09/02, normal per pt. Pt denies any chewing or swallowing difficulty. No recent weight loss noted. Will continue to monitor and follow. Current Diet: cardiac diet Malnutrition Evaluation (09/02/18) The patient does not meet criteria for a specified degree of malnutrition at this time. Will re-evaluate at follow-up as appropriate. Diet Education Needs Assessment: Diet education not indicated. Nutrition Care Level: low Signed: Zara Nelson, MS, RD, LD
--- NOTE | 2018-09-02 16:12 | NUR ---
no leakage at penis from FC post manual irrigation, no c/o pain from patient
--- NOTE | 2018-09-02 19:20 | NUR ---
REPORT TAKEN FROM MORNING GABE WONG.PT IS AMBULATING IN THE [address].NO PAIN VOICED.
--- NOTE | 2018-09-02 20:10 | NUR ---
ASSESSMENT DONE.NO RESP.DISTRESS.NO PAIN VOICED.ORANGE COLORED URINE DRAINING.NO BLOOD CLOTS NOTED.BED LOCKED AND IN LOWEST POSITION.PHONE AND CALL LIGHT WITHIN REACH.INSTRUCTED TO CALL FOR ASISTANCE NEEDED.
[2018-09-02] MEDS: CEFTRIAXONE SOD 1 GM/NS 50 ML 50 ML IV SCH (20:45)
[2018-09-03] VITALS (8 sets, daily range): BP systolic 109–136; BP diastolic 57–77
[2018-09-03] MEDS: D5.45%NS/KCL 20MEQ 1,000 ML IV SCH ×3 (01:20→21:30)
--- NOTE | 2018-09-03 03:00 | NUR ---
NO URINE LEAKAGE FROM POLLOCK CATHETER NOTED.RESTING WELL DURING NIGHT.
[2018-09-03 05:22] LABS: BASOPHILS % 0.7 % (0.0-1.0); EOSINOPHILS # (AUTO) 0.1 (0.0-0.4); EOSINOPHILS % 2.3 % (0.0-6.0); HEMATOCRIT 30.3 % (38.2-49.6); HEMOGLOBIN 9.9 g/dL (14.0-18.0); LYMPHOCYTES # (AUTO) 1.8 (1.0-3.2); MEAN CORPUSCULAR HEMOGLOBIN 29.6 pg (28-32); MEAN CORPUSCULAR HGB CONC 32.7 g/dL (31-35); MEAN CORPUSCULAR VOLUME 90.4 fL (81-99); MONOCYTES # (AUTO) 0.6 (0.2-0.8); MONOCYTES % 10.6 % (4.4-11.3); NEUTROPHILS # (AUTO) 3.1 (2.1-6.9); NEUTROPHILS % 54.5 % (38.7-80.0); PLATELET COUNT 136 x10e3/uL (140-360); RED BLOOD COUNT 3.35 x10e6/uL (4.3-5.7); RED CELL DISTRIBUTION WIDTH 14.1 % (11.7-14.4)
--- NOTE | 2018-09-03 07:00 | NUR ---
Report given to the oncoming RN.walking rounds done.stable condition.
[2018-09-03] MEDS: LISINOPRIL 10 MG TAB PO SCH (08:36)
[2018-09-03] MEDS: PHENAZOPYRIDINE HCL 100 MG TAB PO SCH ×3 (08:36→17:18)
[2018-09-03] MEDS: CRESTOR 10MG PO SCH (08:36)
--- NOTE | 2018-09-03 12:48 | NUR ---
SPOKE WITH MD VALVERDE WHEN ROUNDING . ORDERED SERIAL URINES AND TO DC POLLOCK CATH. ASKED ABOUT DC ORDERS. NO ORDERS GIVEN.
--- NOTE | 2018-09-03 19:00 | NUR ---
REPORT TAKEN FROM MORNING RN.WALKING ROUNDS DONE.SITTING ON THE CHAIR.NO PAIN VOICED.
[2018-09-03] MEDS: CEFTRIAXONE SOD 1 GM/NS 50 ML 50 ML IV SCH (20:30)
[2018-09-04] VITALS: BP 124/60
--- NOTE | 2018-09-04 02:35 | Discharge Summary ---
HISTORY OF PRESENT ILLNESS/HOSPITAL COURSE: A 78-year-old male with past medical history positive for coronary artery disease, benign prostatic hypertrophy, status post TURP in the past, status post PCI, came here with gross hematuria. Patient had a transurethral retrograde prostatectomy by Dr. Fernandez. Hematuria resolved. Gar catheter had been removed. Lung nodule has been found. He had a biopsy done. We are awaiting for the report. It would probably take [address] Eduardo Perez saw the patient from the hematology point of view and he will follow the patient for the biopsy report as an outpatient. Dr. Sha Fernandez has seen the patient from the urology point of view. He removed the Gar catheter. Patient is going home today once he is able to void. PHYSICAL EXAM VITAL SIGNS: Blood pressure 130/64, temperature 96.4, heart rate 58 per minute, respiratory rate 20 per minute, oxygen saturation 96%. HEART: Regular rhythm. Normal S1, S2 sounds. LUNGS: Clear bilaterally. ABDOMEN: Soft. LAB DATA: On the BMP, sodium 134, potassium 4.3, chloride 104, CO2 of 23, BUN 13, creatinine 1.08, glucose 230. On the CBC, white blood count 5.64, hemoglobin 9.9, hematocrit 30.3, platelet 136,000. PT 14.5, INR 1.04, PTT 34.3. AST 23, ALT 24, total bilirubin 0.6, alkaline phosphatase 42. FINAL IMPRESSION 1. Hematuria, which is resolved. 2. Enlarged prostate status post prostatectomy. 3. Lung nodule status post biopsy. PLAN OF TREATMENT: Patient as I said is going to be going home today with instructions to resume the home medication, which include lisinopril 10 mg daily, Crestor 40 mg daily. FOLLOWUP CARE: Follow up with me in a week. Follow up with Dr. Perez in a week. Follow up with Dr. Fernandez in 1 or 2 weeks. Job#: [id number] MARCELLO
[2018-09-04 04:00] VITALS: BP 116/57
--- NOTE | 2018-09-04 06:51 | NUR ---
REPORT GIVEN TO THE ONCOMING RN.WALKING ROUNDS DONE.STABLE CONDITION.
[2018-09-04 08:30] VITALS: BP 125/70
[2018-09-04] MEDS: CRESTOR 10MG PO SCH (08:33)
[2018-09-04] MEDS: LISINOPRIL 10 MG TAB PO SCH (08:33)
[2018-09-04] MEDS: D5.45%NS/KCL 20MEQ 1,000 ML IV SCH (08:33)
[2018-09-04] MEDS: PHENAZOPYRIDINE HCL 100 MG TAB PO SCH ×2 (08:33→14:03)
[2018-09-04 10:29] VITALS: BP 125/70
[2018-09-04 12:21] VITALS: BP 111/68
[2018-09-04] MEDS ORDERED: TYLENOL WITH C1 EACH PO (16:06)
[2018-09-04] MEDS ORDERED: COLACE100 MG PO (16:06)
[2018-09-04] MEDS ORDERED: CEFUROXIME250 MG PO (16:08)
[2018-09-04 16:24] VITALS: BP 119/59
--- NOTE | 2018-09-04 18:22 | Discharge Summary ---
HISTORY OF PRESENT ILLNESS AND HOSPITAL COURSE: A 78-year-old male, who came here with hematuria. He had a TURP done by Dr. Fernandez because of the enlarged prostate. He also had a lung biopsy because of a lung nodule, is going today. He is going home today. Finally the urine is clear and he is able to void without any problem. PHYSICAL EXAM VITAL SIGNS: Blood pressure 111/68, temperature 98.5, heart rate 73 per minute, respiratory rate 18 per minute, oxygen saturation 98%. HEART: Shows regular rhythm. Normal S1, S2 sounds. LUNGS: Clear bilaterally. ABDOMEN: Soft. LABORATORY STUDIES: On the BMP; sodium 134, potassium 4.7, chloride 104, CO2 23, BUN 13, creatinine 1.08. Glucose 213. On the CBC, white blood count 5.64, hemoglobin 9.9, hematocrit 30.3, platelet count 156,000. PT 14.5, INR 1.04, PTT 34.3. AST 23, ALT 24, total bilirubin 0.6, alkaline phosphatase 422. FINAL IMPRESSION 1. Hematuria, which is resolved. 2. Enlarged prostate status post transurethral resection of the prostate. 3. Lung nodule status post biopsy. PLAN OF TREATMENT: Continue medication regimen as I already dictated yesterday, go home today. Follow up with me in a week. Follow up with Dr. Perez, hematology for followup on the lung biopsy in a week. Follow up with Dr. Fernnadez in a week. Job#: [id number] RTJimmy
--- NOTE | 2018-09-13 00:48 | Operative Report ---
DATE OF PROCEDURE: August 31, 2018 PREOPERATIVE DIAGNOSIS: Large severely obstructing BPH. POSTOPERATIVE DIAGNOSIS: Large severely obstructing BPH. OPERATIONS PERFORMED: Extensive cystoscopy with transurethral resection of the prostate utilizing the plasma button electrode (separate staged procedure). ANESTHESIA: General. COMPLICATIONS: None. CLINICAL SUMMARY: Please refer to prior operative dictation from this admission. OPERATIVE PROCEDURE IN DETAIL: Informed consent was verified. Des Rico was properly identified, taken to the operating room, and placed on the cystoscopy table in supine position. Anesthesia was uneventfully begun. The resectoscope was atraumatically placed and we utilized a plasma button electrode to first vaporize the patient's visually obstructing median bar and then proceeded with working on both lateral lobes. Vaporization was carried out from the bladder neck to but never past the verumontanum and down the surgical capsule circumferentially. Care was taken to avoid injuring the ureteral orifices. Pinpoint electrocautery was utilized to achieve hemostasis. The resectoscope was withdrawn. A continuous irrigation flow Gar catheter was placed. It was irrigated to and fro to ensure it worked properly. The patient was placed on continuous irrigation with completely clear efflux. A belladonna and opium suppository was placed, and the patient was uneventfully reversed from anesthesia and taken to the recovery room in stable condition. There were no complications to the procedure. He tolerated the procedure well. Plans will be to proceed with routine postoperative care and continue monitoring the patient on a long-term basis. Job#: [id number] CF cc:INGA HARDING MD
--- NOTE | 2018-09-13 01:21 | Operative Report ---
DATE OF PROCEDURE: August 29, 2018 PREOPERATIVE DIAGNOSIS: Gross hematuria. POSTOPERATIVE DIAGNOSES 1. Gross hematuria. 2. Clot retention. OPERATIONS PERFORMED 1. Cystoscopy with evacuation and irrigation of multiple obstructing blood clots (separate procedure performed for the clot retention). 2. Cystourethroscopy with bilateral ureteral catheterization and retrograde ureteral pyelography (separate procedure performed for the hematuria). 3. Interpretation of retrograde ureteropyelography. ANESTHESIA: General. COMPLICATIONS: None. CLINICAL SUMMARY: Please refer to consultation dictation from several days prior. OPERATIVE PROCEDURE IN DETAIL: Informed consent was verified. Des Rico was properly identified and taken to the operating room and placed on the cystoscopy table in supine position. Anesthesia was uneventfully begun. The patient was then carefully and gently repositioned in the dorsal lithotomy position with all pressure points well padded. His genitalia were prepared and draped in the usual fashion. A 22.5-Bulgarian cystoscopic sheath with the visual obturator in place was atraumatically inserted into the patient's urethra. It was guided down the unremarkable distal urethra through the normal sphincteric region through the visually obstructing prostate bed with kissing lateral lobes and evidence of prior transurethral procedure, but severe visually obstructing BPH. We entered the patient's bladder where panendoscopy revealed heavy trabeculations and multiple obstructing blood clots. We evacuated all the blood clots. Following this, panendoscopy revealed no suspicious gross lesions. No tumors. No stones. A ureteral catheter was used to cannulate each ureter and retrograde ureteropyelograms were performed. Interpretation of retrograde ureteropyelography: Contrast was instilled in a retrograde fashion bilaterally. There were no tumors. There were no stones. There was no hydronephrosis. No suspicious filling defects were identified. Unobstructed drainage was observed bilaterally fluoroscopically. The patient exhibited severe J-hooking bilaterally. The patient's prostate was friable and tended to easily bleed from the prostatic mucosa. Therefore, we drained the patient's bladder, placed a belladonna and opium suppository. Revealing on digital examination, the patient had a large prostate without any suspicious nodules. The patient was uneventfully reversed from anesthesia and taken to recovery room in stable condition. There were no complications during the procedure. He tolerated the procedure well. Plans will be to monitor the patient and discuss with the patient and family the option and indication for transurethral resection of the prostate in order to control his bleeding and also his severely obstructing BPH. Job#: [id number] CHERISE
== END 2018-09-04 16:40 | disposition home or self-care (01) | DRG 713 ==
LOC: ER 10:14 → ERHOLD 15:05 → IMCU 08-25 15:15 → OBSVTOIN 08-25 17:49 → MED/SURG2 08-26 06:16 → MED/SURG 08-31 15:17
PROVIDERS: ADMIT Internal Medicine; ATTEND Internal Medicine
PROC: 0VB08ZZ Excision of Prostate, Via Natural or Artificial Opening Endoscopic (ICD-10-PCS; principal; 2018-08-31 10:00)
PROC: 0BBF3ZX Excision of Right Lower Lung Lobe, Percutaneous Approach, Diagnostic (ICD-10-PCS; 2018-09-01)
DX: N40.0 Benign prostatic hyperplasia without lower urinary tract symptoms (principal); N17.9 Acute kidney failure, unspecified; I12.9 Hypertensive chronic kidney disease with stage 1 through stage 4 chronic kidney disease, or unspecified chronic kidney disease; N18.3 Chronic kidney disease, stage 3 (moderate); R91.1 Solitary pulmonary nodule
CPT/HCPCS: 10022; 32405; 36415; 71250; 74177; 74420; 74470; 77012; 80048; 80053; 81001; 82378; 85025; 85610; 85730; 87086; 88172; 88173; 88305; 90732; 99152; 99284; G0378; J0696; J1100; J2001; J2250; J2270; J2405; J7030; J7040; Q9967

== ENCOUNTER 2018-11-01 11:42 | Inpatient (IN) | payer MEDICARE ==
[~2018-11-01] VITALS: Ht 170.2 cm; Wt 82.2 kg
[~2018-11-01 11:42] MED LIST: CEFUROXIME250 MG PO; COLACE100 MG PO; CRESTOR40 MG; LISINOPRIL10 MG; TYLENOL WITH C1 EACH PO; XARELTO20 MG
--- OUTSIDE RECORDS SUMMARY | 2018-11-01 11:50 | XMS REPORT ---
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 Allergies, Adverse Reactions, Alerts This patient has no known allergies or adverse reactions. Medications This patient has no known medications. Results Test Description Test Time Test Comments Text Results Atomic Results Result Comments CT GUIDED BIOPSY/ASPIR/INJ/YOSEPH 2018-09-01 12:49:00 [place] [address] Patient Name: LUIGI CHONG MR #: [id number] : 1940 Age/Sex: 78/M Req #: [id number] [facility] Physician: INGA HARDING MD Ordered by: INGA HARDING MD Report #: [id number] Location: MED/SURG Room/Bed: [facility] Procedure: [id number] CT/CT GUIDED BIOPSY/ASPIR/INJ/YOSEPH Exam Date: 09/01/18 Exam Time: 1023 REPORT STATUS: Signed ADDENDUM #1 Addendum: Conscious sedation time was 45 minutes or less. Dose reduction techniques used: Automated exposure control, adjustment of the mAs and/or kVp according to patient size, standardized low-dose protocol, and/or iterative reconstruction technique. Signed by: Dr. Manohar Melvin DO on 09/12/2018 9:38 AM ORIGINAL REPORT Exam: CT-guided right lower lobe pulmonary nodule FNA and core biopsy dated 09/01/2018. History: There are 2 right lower lobe pulmonary nodules in a patient with no known primary. Comparison: CT scan of the chest dated 08/26/2018 Sedation: Patient received 1 mg of Versed and 25 mcg of Fentanyl. He was continuously monitored during the procedure and following the procedure. DLP: 1347.31 mGy-cm Findings: Axial scans were performed through the region of the right lower lobe pulmonary nodule. Local anesthesia with 1% Xylocaine was accomplished. A 19- gauge guiding needle was then placed into the largest 1.8 cm right lower lobe pulmonary nodule. Through the guiding needle a 20-gauge Chiba needle was utilized to perform a single FNA. Six core biopsies through the guiding needle utilizing a 20-gauge biopsy gun were also performed. Specimens were evaluated by the attending Pathologist who deemed the specimens adequate for diagnosis. Patient tolerated the procedure well. Post biopsy full chest sca ns show no evidence of a pneumothorax. There is some hemorrhage around the nodule that was biopsied. Impression: Successful FNA and core biopsy of a right lower lobe pulmonary nodule. Signed by: Dr. Manohar Melvin DO on 09/01/2018 12:55 PM Dictated By: MANOHAR MELVIN DO 0938 Transcribed By: ROHAN on 09/01/18 1252 COPY TO: INGA HARDING MD CT CHEST WO 2018-08-26 10:34:00 [place] [address] Patient Name: LUIGI CHONG MR #: [id number] : 1940 Age/Sex: 78/M Req #: [id number] Adm Physician: INGA HARDING MD Ordered by: CELINE RAI MD Report #: [id number] Location: MED/SURG2 Room/Bed: [facility] Procedure: [id number] CT/CT CHEST WO Exam Date: 08/26/18 Exam Time: 0953 REPORT STATUS: Signed ADDENDUM #1 Addendum: Left atrial enlargement. Echocardiogram could be obtained for further evaluation. Signed by: Dr. King Bennett MD on 08/26/2018 11:32 AM ORIGINAL REPORT EXAM: CT Chest WITHOUT contrast INDICATION: Pulmonary nodules COMPARISON: CT abdomen 08/24/2018, no report available TECHNIQUE: The Chest was scanned utilizing a multidetector helical scanner without the use of IV contrast. Coronal and sagittal reformations were obtained. IV CONTRAST: None COMPLICATIONS: None RADIATION DOSE: Total DLP: 498 mGy*cm Estimated effective dose: (DLP x 0.015 x size factor) mSv CTDIvol has been reviewed. It is below the limits set by the Radiation Protocol Committee (RPC). Appropriate CT dose reduction techniques were utilized. FINDINGS: Lines and Tubes: None. Lower Neck: 12 mm nodule right thyroid lobe. Heart and Great Vessels: The aorta and main pulmonary artery measure 38 and 2 1 mm. respectively. No pericardial effusion. Mild three-vessel coronary vascular calcifications with PCI mid LAD. Transverse diameter left atrium 50 mm. Lymph Nodes: Partially calcified mediastinal and hilar lymph nodes. Lungs: No pneumothorax or pleural effusion identified. Trachea and central bronchi are unremarkable. Atelectasis present lung bases. Minimal centrilobular emphysematous change suspected. There is a 15 mm irregular nodule right lower lobe series 3 image 73. 8 mm nodule right lower lobe series 3 image 69. Upper abdomen: Please see recent CT abdomen. Bones and Soft Tissues: No acute findings. IMPRESSION: 1. 15 mm and 8 mm irregular nodules right lower lobe. Given findings in the urinary bladder on recent abdominal CT, metastatic disease favored. Tissue diagnosis recommended. 2. Minimal centrilobular emphysematous change. 3. Evidence prior granulomatous disease. 4. Hypodensity right thyroid lobe. Ultrasound recommended. Signed by: Dr. King Bennett MD on 08/26/2018 10:39 AM Dictated By: KING BENNETT MD 1132 Transcribed By: ROHAN on 08/26/18 1039 COPY TO: CELINE RAI MD CT ABDOMEN/PELVIS W 2018-08-24 16:12:00 [place] [address] Patient Name: LUIGI CHONG MR #: [id number] : 1940 Age/Sex: 78/M Req #: [id number] Adm Physician: INGA HARDING MD Ordered by: SUDARSHAN HUDDLESTON MEDIA MARKETING SPECIALIST Report #: [id number] Location: [facility] Room/Bed: [place] [address] Procedure: [id number] CT/CT ABDOMEN/PELVIS W Exam Date: 08/24/18 Exam Time: 1540 REPORT STATUS: Signed EXAM: CT Abdomen and Pelvis WITH contrast IN DICATION: Hematuria/pain COMPARISON: None. TECHNIQUE: Abdomen and Pelvis was scanned utilizing a multidetector helical scanner after administration of IV contrast. Coronal and sagittal reformations were obtained. IV CONTRAST: 100 mL Isovue-370 COMPLICATIONS: None RADIATION DOSE: Total DLP:454 mGy*cm Estimated effective dose: (DLP x 0.015 x size factor) mSv CTDIvol has been reviewed. It is below the limits set by the Radiation Protocol Committee (RPC). Appropriate CT dose reduction techniques were utilized. FINDINGS: Abdomen: Lung Bases: 7 mm and 15 mm nodules right lower lobe. Solid Organs: Calcifications of the gallbladder incompletely evaluated. It is unclear whether there are multiple calcified gallstones versus advanced calcifications of the gallbladder wall. Adrenals, spleen, and pancreas are unremarkable. Cysts are present in both kidneys. Upper GI Tract: Decompressed stomach limits adequate evaluation. No small bowel obstructive changes. Vascularity: Mild aortic vascular calcifications with no aneurysm. Retroaortic left renal vein. Lymph Nodes: No suspicious adenopathy. Other: None. Pelvis: Bladder: Significant soft tissue density present in the dependent portion of the urinary bladder. Other: Prostate enlarged 59 mm transverse diameter indenting base of bladder. No suspicious adenopathy in the pelvis. Colon: There are a few scattered diverticula. Bones: Degenerative changes spine, SI joints, and hips. Mottled appearance of the superior pubic ramus on the right statistically sequela of prior trauma. There are a few scattered sclerotic foci in the pelvis. IMPRESSION: 1. Large ill-defined soft tissue density within the urinary bladder incompletely evaluated. Enlarged prostate indenting base of bladder. Findings are concerning for either malignancy of the urinary bladder or prostate gland. Urologic consultation, direct visualization, and tissue diagnosis recommended. 2. Pulmonary nodules right lower lobe concerning for metastasis. 3. There are either calcified gallstones or advanced calcifications of the gallbladder wall. 4. Osseous findings as above. Signed by: Dr. King Bennett MD on 08/24/2018 4:17 PM Dictated By: KING BENNETT MD 16 Transcribed By: ROHAN on 08/24/181616 COPY TO: SUDARSHAN HUDDLESTON NP
--- OUTSIDE RECORDS SUMMARY | 2018-11-01 11:50 | XMS REPORT | Clinical Summary ---
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); Abnormal [...] Ronal Earl MD Ep loop recorder insertion [79651 (CPT)] 03/18/2018 Surgery Procedural Cardiology Agatha Pop MD 03/14/2018 Anesthesia Radiology Event Agatha Loera MD Patel, Amitkumar Natvarlal, MD 03/14/2018 Hospital Neurology - Encounter 03/19/2018 Wan Chavez MD Acute ischemic left MCA stroke (Primary Dx) 03/14/2018 Emergency Emergency Medicine N/A 03/14/2018 Intake Access after 10/31/2017 Social History Date Tobacco Use Types Packs/Day [...] Taken Vital Sign Reading 07/18/2018 10:02 AM BUFFING MACHINE OPERATOR Blood Pressure 143/79 07/18/2018 10:02 AM BUFFING MACHINE OPERATOR Pulse 83 05/12/2018 7:27 AM CDT Temperature 36.8 C (98.2 F) 05/12/2018 7:27 AM CDT Respiratory Rate 16 05/12/2018 8:30 AM CDT Oxygen Saturation 98% - Inhaled Oxygen - Concentration 07/18/2018 10:02 AM BUFFING MACHINE OPERATOR Weight 82.6 kg (182 lb) 07/18/2018 10:02 AM BUFFING MACHINE OPERATOR Height 170.2 cm (5' 7") 07/18/2018 10:02 AM BUFFING MACHINE OPERATOR Body Mass Index 28.51 Plan of Treatment Care Team Description Date Type Specialty Volpi, Agatha Michaels MD [address] [address] 01/23/2019 Office Visit Neurology Health Maintenance Due Date Last Done Comments SHINGLES VACCINES (#1) 1989 65+ PNEUMOCOCCAL VACCINE 2004 (1 of 2 - PCV13) PNEUMOCOCCAL 2004 POLYSACCHARIDE VACCINE AGE 65 AND OVER INFLUENZA VACCINE 04/06/2018 Implants Device Identifier Shelf Expiration Date Model / Serial / Lot Implanted Type Area Manufactur er [id number] / / Monitor Cardiac Implant Confirm Rx Cardiac N/A: N/A ST MAKI - [id number] Pacemakers MEDICAL Implanted: 03/18/2018 (Quantity not and INC on file) Related Products 01/03/2019 [id number] / / [id number] Device Vasclr Clsr Vasoactive Cardiovasc N/A: N/A Intstnl Peptd 6fr Angio-Seal - ular [id number] Implants Implanted: 03/14/2018 (Quantity not on file) [id number] / / Catheter Bln Otw 2.5mm 12mm Cardiovasc N/A: N/A [employer] Sprinter - [id number] ular [place] - Implanted: 05/11/2018 (Quantity not Implants VASCULAR on file) [id number] / / Catheter 6fr X 13cm Antonia Plus Central N/A: N/A MICRO Intermediate - [id number] Venous VENTION Implanted: 03/14/2018 (Quantity not Catheters on file) [id number] / / Stent System 3.0 X 18mm Resolute Coronary N/A: N/A [employer] Salvador Otw Coronary - [id number] Stents [place] - Implanted: 05/11/2018 (Quantity not CARDIAC on file) RYHTYM MGMT [id number] / / Stent System 2.75 X 08mm Resolute Coronary N/A: N/A [employer] Greer Otw Coronary - [id number] Stents [place] - Implanted: 05/11/2018 (Quantity not CARDIAC on file) RYHTYM MGMT [id number] / / Catheter Thrmbtmy Neuron Max 088 Surgical N/A: N/A PENUMBRA Str 6fr 80x4cm - [id number] Implants; INC Implanted: 03/14/2018 (Quantity not Expanders; on file) Extenders; Surgical Wires 02/04/2020 [id number] / / [id number] System Clsr Sut Meditd 6fr Perclose Surgical N/A: N/A HONG Proglide - [id number] Implants; VASCULAR Implanted: 05/11/2018 (Quantity not Expanders; DEVICES on file) Extenders; Surgical Wires 02/04/2020 [id number] / / [id number] System Clsr Sut Meditd 6fr Perclose Surgical N/A: N/A HONG Proglide - [id number] Implants; VASCULAR Implanted: 05/11/2018 (Quantity not Expanders; DEVICES on file) Extenders; Surgical Wires Procedures Comments Procedure Name Priority Date/Time Associated Diagnosis LIPID PANEL Routine 07/18/2018 Hyperlipidemia LDL goal 10:43 AM BUFFING MACHINE OPERATOR <70 HC COMPLETE BLD COUNT Routine 05/12/2018 [...] CDT PARTIAL THROMBOPLASTIN STAT 05/10/2018 Atherosclerosis of aniak TIME (PTT) 9:23 AM CDT coronary artery with angina pectoris, unspecified whether aniak or transplanted heart Cerebral infarction due to thrombosis of left middle cerebral artery PROTHROMBIN TIME WITH INR STAT 05/10/2018 Atherosclerosis of aniak 9:23 AM CDT coronary artery with angina pectoris, unspecified whether aniak or transplanted heart Cerebral infarction due to thrombosis of left middle cerebral artery CBC HEMOGRAM STAT 05/10/2018 Atherosclerosis of aniak 9:23 AM CDT coronary artery with angina pectoris, unspecified whether aniak or transplanted heart Cerebral infarction due to thrombosis of left middle cerebral artery BASIC METABOLIC PANEL STAT 05/10/2018 Atherosclerosis of aniak 9:23 AM CDT coronary artery with angina pectoris, unspecified whether aniak or transplanted heart Cerebral infarction due to thrombosis of left middle cerebral artery CBC HEMOGRAM Routine 04/14/2018 Cerebrovascular accident 5:00 PM CDT (CVA) due to embolism of left middle cerebral artery LIPID PANEL Routine 04/14/2018 Hyperlipidemia LDL goal 5:00 PM CDT <70 EP SUBCUTANEOUS CARDAIC Routine 03/18/2018 RHYTHM MONITOR INSERT W 11:39 AM CDT PROG CARDIAC MRI STROKE EVAL W Routine 03/17/2018 [...] MMODE SPECTRAL 10:05 AM CDT COLOR DOPPLER (29922) POC GLUCOSE Routine 03/15/2018 7:40 AM CDT [...] PRELIMINARY Routine 03/14/2018 INTERPRETATION 5:11 PM CDT [place] [facility], E/M Routine 03/14/2018 30-74 MINUTES 5:11 PM CDT PROTHROMBIN TIME WITH INR STAT 03/14/2018 5:10 PM CDT ZZESTIMATED GFR STAT 03/14/2018 5:10 PM CDT TROPONIN STAT 03/14/2018 5:10 PM CDT COMPREHENSIVE METABOLIC STAT 03/14/2018 PANEL 5:10 PM CDT PARTIAL THROMBOPLASTIN STAT 03/14/2018 TIME (PTT) 5:10 PM CDT HC COMPLETE BLD COUNT STAT 03/14/2018 W/AUTO DIFF 5:10 PM CDT after 10/31/2017 Results * Lipid panel (07/18/2018 10:43 AM BUFFING MACHINE OPERATOR) Only the most recent of 3 results within the time period is included. Cholesterol 122 <200 mg/dL [facility] Triglycerides 197 (H) <150 mg/dL [facility] HDL cholesterol 38 (L) >40 mg/dL [facility] LDL cholesterol 62Comment: Result obtained by <100 mg/dL [facility] direct LDL measurement [facility] Lipid panel SeeBelow [facility] interpretation Comment: HOSPITAL Total Cholesterol (mg/dL) <200 [...] specimen Performing Organization Address City/State/Zipcode Phone Number [facility] [place] [address] PATHOLOGY AND GENOMIC MEDICINE [address] * CBC with platelet and differential (05/12/2018 4:48 AM CDT) Only the most recent of 3 results within the time period is included. WBC 6.04 4.50 - 11.00 k/uL [facility] DEPARTMENT OF PATHOLOGY AND GENOMIC MEDICINE RBC 4.15 (L) 4.40 - 6.00 m/uL [facility] DEPARTMENT OF PATHOLOGY AND GENOMIC MEDICINE HGB 12.4 (L) 14.0 - 18.0 g/dL [facility] DEPARTMENT OF PATHOLOGY AND GENOMIC MEDICINE HCT 37.8 (L) 41.0 - 51.0 % [facility] DEPARTMENT OF PATHOLOGY AND GENOMIC MEDICINE MCV 91.1 82.0 - 100.0 fL [facility] DEPARTMENT OF PATHOLOGY AND GENOMIC MEDICINE MCH 29.9 27.0 - 34.0 pg [facility] DEPARTMENT OF PATHOLOGY AND GENOMIC MEDICINE MCHC 32.8 31.0 - 37.0 g/dL [facility] DEPARTMENT OF PATHOLOGY AND GENOMIC MEDICINE RDW - SD 45.8 37.0 - 55.0 fL [facility] DEPARTMENT OF PATHOLOGY AND GENOMIC MEDICINE MPV 10.0 8.8 - 13.2 fL [facility] DEPARTMENT OF PATHOLOGY AND GENOMIC MEDICINE Platelet count 176 150 - 400 k/uL [facility] DEPARTMENT OF PATHOLOGY AND GENOMIC MEDICINE Nucleated RBC 0.00 /100 WBC [facility] DEPARTMENT OF PATHOLOGY AND GENOMIC MEDICINE Neutrophils 62.5 39.0 - 69.0 % [facility] DEPARTMENT OF PATHOLOGY AND GENOMIC MEDICINE Lymphocytes 25.2 25.0 - 45.0 % [facility] DEPARTMENT OF PATHOLOGY AND GENOMIC MEDICINE Monocytes 9.3 0.0 - 10.0 % [facility] DEPARTMENT OF PATHOLOGY AND GENOMIC MEDICINE Eosinophils 2.2 0.0 - 5.0 % [facility] DEPARTMENT OF PATHOLOGY AND GENOMIC MEDICINE Basophils 0.3 0.0 - 1.0 % [facility] DEPARTMENT OF PATHOLOGY AND GENOMIC MEDICINE Immature granulocytes 0.5Comment: "Immature 0.0 - 1.0 % [facility] DEPARTMENT OF granulocytes" (promyelocytes, PATHOLOGY AND myelocytes, metamyelocytes) GENOMIC MEDICINE Specimen Blood Performing Organization Address City/[facility] Phone Number [facility] DEPARTMENT OF [address] [place] [address] PATHOLOGY AND GENOMIC MEDICINE * ECG Pre/Post Op (05/12/2018 4:15 AM CDT) Ventricular rate 56 [facility]USE Atrial rate 56 [facility] MUSE [place] interval 152 [facility] MUSE QRSD interval 112 [facility] MUSE QT interval 422 [facility] MUSE QTC interval 407 [facility] MUSE QRS axis 1 -47 [facility] MUSE T wave axis -3 [facility] MUSE EKG impression Sinus bradycardia-Incomplete [facility] MUSE right bundle branch block-Left anterior fascicular block-Minimal voltage criteria for LVH, may be normal variant-Septal infarct (cited on or before 14-MAR-2018)-Abnormal ECG-In automated comparison with ECG of 11-MAY-2018 11:57,-No significant change was found- Performing Organization Address City/State/Zipcode Phone Number [facility] MUSE [address] [place], [place] [id number] * Estimated GFR (05/12/2018 4:00 AM CDT) Only the most recent of 5 results within the time period is included. GFR Non Af Amer 65 mL/min/1.73 m2 [facility] DEPARTMENT OF PATHOLOGY AND GENOMIC MEDICINE GFR Af Amer 78 mL/min/1.73 m2 [facility] DEPARTMENT OF Comment: PATHOLOGY AND Chronic [...] Americans. Specimen Plasma specimen Performing Organization Address [facility] [place] [address] PATHOLOGY AND [employer] MEDICINE * Basic metabolic panel (05/12/2018 4:00 AM CDT) Only the most recent of 4 results within the time period is included. Sodium 139 135 - 148 mEq/L [facility] DEPARTMENT OF PATHOLOGY AND GENOMIC MEDICINE Potassium 4.1 3.5 - 5.0 mEq/L [facility] DEPARTMENT OF PATHOLOGY AND GENOMIC MEDICINE Chloride 105 98 - 112 mEq/L [facility] DEPARTMENT OF PATHOLOGY AND GENOMIC MEDICINE CO2 25 24 - 31 mEq/L [facility] DEPARTMENT OF PATHOLOGY AND GENOMIC MEDICINE Anion gap 9@ANIO 7 - 15 mEq/L [facility] DEPARTMENT OF PATHOLOGY AND GENOMIC MEDICINE BUN 16 8 - 23 mg/dL [facility] DEPARTMENT OF PATHOLOGY AND GENOMIC MEDICINE Creatinine 1.1 0.7 - 1.2 mg/dL [facility] DEPARTMENT OF PATHOLOGY AND GENOMIC MEDICINE Glucose 130 (H) 65 - 99 mg/dL [facility] DEPARTMENT OF PATHOLOGY AND GENOMIC MEDICINE Calcium 8.9 8.8 - 10.2 mg/dL [facility] DEPARTMENT OF PATHOLOGY AND GENOMIC MEDICINE Specimen Plasma specimen Performing Organization Address [facility] [place] [address] PATHOLOGY AND GENOMIC MEDICINE * ECG 12 lead (05/11/2018 11:57 AM CDT) Only the most recent of 3 results within the time period is included. Ventricular rate 50 [facility]USE Atrial rate 50 [facility]USE [place] interval 172 [facility] QRSD interval 118 [...] leads- Performing Organization Address City/State/Zipcode Phone Number [facility] MUSE [address] [place] [address] * Cv laborer cheesemaking procedure (05/11/2018 10:06 AM CDT) Narrative Performed At [facility] Successful PCI to mid LAD with 3.0x18 mm Resolute Greer BERNA followed by 2.75x8 mm Resolute Greer BERNA to distal edge for small edge dissection See dictated op report for further details TITLE OF OPERATION: Percutaneous coronary intervention with medicated stent to the proximal and mid left anterior descending coronary artery. SURGEON: Dr. Arpit Blanchard. COUNTER TACKER: Dr. Agatha Beckham. 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 2.Abnormal cardiac functional study. POSTOPERATIVE DIAGNOSES: 1.Atherosclerotic vascular disease of the [place]iak coronaries with angina, other. 2.Abnormal cardiac functional study. ANESTHESIA: Conscious sedation with Versed and fentanyl. ESTIMATED BLOOD LOSS: 20 mL. COMPLICATIONS: None. OPERATIVE COURSE: After informed consent was obtained from the patient and with appropriate time-out procedures called, the patient was originally taken to the cardiac catheterization laboratory by my partner, Dr. Ronal Earl.Dr. Earl performed diagnostic coronary angiography using 5-Taiwanese system.Once accomplished, I was called to the laborer cheesemaking to assess for the possibility of percutaneous [...] patient previously, we proceeded with intervention. The 5-Taiwanese system was exchanged for a 6-Taiwanese sheath.The patient received bivalirudin with subsequent ACT greater than 230 seconds prior to wire passage. The guiding catheter chosen was a 6-Taiwanese XB LAD 3.5-sidehole variety. Preprocedural angiograms were taken in two views.A 0.014 extra support exchange length wire was then inserted across the stenosis and the lesion, predilated with a 2.5 x 12 mm balloon.The lesion was then successfully stented with a 3.0 x 18 mm Resolute Greer medicated stent.The stent was properly placed, but postprocedural angiogram suggested a nonocclusive but nonetheless threatening dissection eccentrically in the superior aspect of the vessel at the distal end of the stenosis.Thus, a second stent, specifically a 2.75 x 8 mm Resolute Greer stent was placed at the distal end [...] tolerated the procedure well. Performing Organization Address City/State/Zipcode Phone Number [facility] [address] [place] [address] * Cv laborer cheesemaking procedure (05/11/2018 10:06 AM CDT) Narrative Performed At [facility] LM: normal LAD: mid 95% stenosis, first diagonal proximal 50% Ramus: no significant stenosis LCX: no significant stenosis RCA: mild plaque Performing Organization Address [facility] Phone Number [facility] [address] [place] [address] * Activated clotting time (05/11/2018 9:08 AM CDT) Only the most recent of 2 results within the time period is included. Activated clotting time 426 (H) 96 - 152 sec [facility] DEPARTMENT OF Comment: PATHOLOGY AND Meter ID: [id number] GENOMIC MEDICINE Loss Prevention Associate: Norberto Carlson Performing Organization Address [facility] Phone Number [facility] DEPARTMENT OF [address] [place] [address] PATHOLOGY AND [facility] MEDICINE * Partial thromboplastin time, activated (05/10/2018 9:23 AM CDT) Only the most recent of 2 results within the time period is included. PTT 35.3 23.0 - 36.0 sec [facility] DEPARTMENT OF Comment: PATHOLOGY AND PTT therapeutic range for [facility] unfractionated heparin is 61.0-112.0 seconds which corresponds to Anti-Xa 0.3-0.7 U/ml. Specimen Blood Performing Organization Address [facility] Phone Number [address] [place] [address] PATHOLOGY AND [employer] MEDICINE * Prothrombin time with INR (05/10/2018 9:23 AM CDT) Only the most recent of 2 results within the time period is included. Prothrombin time 17.7 (H) 12.0 - 15.0 sec [facility] DEPARTMENT OF PATHOLOGY AND [employer] MEDICINE INR 1.4 [facility] DEPARTMENT OF Comment: PATHOLOGY AND The International Normalized [facility] MEDICINE Ratio (INR) is a therapeutic monitoring tool for patients who are stable on oral anticoagulant therapy. An INR of 2.0-3.0 is suggested for deep vein thrombosis/pulmonary embolism. Specimen Blood Performing Organization Address [facility] Phone Number [address] [place] [address] PATHOLOGY AND [employer] MEDICINE * CBC hemogram (05/10/2018 9:23 AM CDT) Only the most recent of 3 results within the time period is included. WBC 5.74 4.50 - 11.00 k/uL [facility] DEPARTMENT OF PATHOLOGY AND [employer] MEDICINE RBC 4.65 4.40 - 6.00 m/uL [facility] DEPARTMENT OF PATHOLOGY AND GENOMIC MEDICINE HGB 13.7 (L) 14.0 - 18.0 g/dL [facility] DEPARTMENT OF PATHOLOGY AND GENOMIC MEDICINE HCT 41.2 41.0 - 51.0 % [facility] DEPARTMENT OF PATHOLOGY AND GENOMIC MEDICINE MCV 88.6 82.0 - 100.0 fL [facility] PATHOLOGY AND GENOMIC MEDICINE MCH 29.5 27.0 - 34.0 pg [facility] DEPARTMENT OF PATHOLOGY AND GENOMIC MEDICINE MCHC 33.3 31.0 - 37.0 g/dL [facility] OF PATHOLOGY AND GENOMIC MEDICINE RDW - SD 43.8 37.0 - 55.0 fL [facility] PATHOLOGY AND GENOMIC MEDICINE MPV 9.8 8.8 - 13.2 fL [facility] PATHOLOGY AND GENOMIC MEDICINE Platelet count 202 150 - 400 k/uL [facility] PATHOLOGY AND GENOMIC MEDICINE Nucleated RBC 0.00 /100 WBC [facility] DEPARTMENT PATHOLOGY [facility] GENOMIC MEDICINE Specimen Blood Performing Organization Address City/[facility] Phone Number [address] [place] [address] PATHOLOGY AND GENOMIC MEDICINE * Cv electrophysiology procedure (03/18/2018 11:39 AM CDT) [facility]ative [facility] Successful loop recorder implant. Performing Organization Address [facility] Phone Number [facility] [address] [place] [address] * Cardiac mri stroke eval w contrast (03/17/2018 9:20 AM CDT) Narrative Performed At [facility] CMR Report Name:DES CHONG :1940 Scan Date: [...] Lateral | Normal/Hyper | None ||| | Francis | Akinetic | 51-75% || Sub-Endo [place]| [...] INFO GENERAL --------- CONTRAST AGENT TYPE:Dotarem LOT NUMBER:[id number] EXPIRATION DATE:2019-03-05 00:00:00 VOLUME ADMINISTERED:25 ml DOSAGE [...] REASON(S) FOR SCAN:Stroke Evaluation REFERRING PHYSICIAN:WAN CHAVEZ TECHNOLOGIST:Mega Andujar RT[ , ]Dee Hoskins BILLING Patient Account [id number] CPT Codes 77445, 97328, 43157 ICD10 Codes I63.9, I25.5 Report generated by Precession, a product of [employer] Procedure Note Interface, Radiology Results In - 03/17/2018 3:38 PM CDT [facility] CMR Report Name: DES CHONG : 1940 [...] Normal/Hyper | None | | | | Francis | Akinetic | 51-75% | | Sub- [...] GENERAL CONTRAST AGENT TYPE: Dotarem LOT NUMBER: [id number] EXPIRATION DATE: 2019-03-05 00:00:00 VOLUME ADMINISTERED: 25 [...] RT[ , ]Dee Hoskins BILLING Patient Account [id number] CPT Codes 01662, 84314, 02776 ICD10 Codes I63.9, I25.5 Report generated by [employer], a product of [employer] Performing Organization Address City/State/Zipcode Phone Number [facility] [address] [place] [address] * POC glucose (03/16/2018 11:27 AM CDT) Only the most recent of 12 results within the time period is included. POC glucose 154 (H) 65 - 99 mg/dL [facility] DEPARTMENT OF Comment: PATHOLOGY AND [facility] Notified RN GENOMIC MEDICINE Meter ID: [id number] Loss Prevention Associate: Sujit Sherman Performing Organization Address [facility] Phone Number [facility] [place] [address] PATHOLOGY AND GENOMIC MEDICINE * Magnesium level (03/16/2018 2:36 AM CDT) Magnesium 2.1 1.6 - 2.4 mg/dL [facility] DEPARTMENT OF PATHOLOGY AND GENOMIC MEDICINE Specimen Plasma specimen Performing Organization Address [facility] [place] [address] PATHOLOGY AND GENOMIC MEDICINE * Urine drugs of abuse screen (03/15/2018 11:18 PM CDT) Only the most recent of 2 results within the time period is included. Amphetamine screen, urine Negative [facility] DEPARTMENT OF PATHOLOGY AND GENOMIC MEDICINE Barbiturate screen, urine Negative [facility] DEPARTMENT OF PATHOLOGY AND GENOMIC MEDICINE Benzodiazepine screen, Negative [facility] DEPARTMENT OF urine PATHOLOGY AND GENOMIC MEDICINE Cannabinoid screen, urine Negative [facility] DEPARTMENT OF PATHOLOGY AND GENOMIC MEDICINE Cocaine screen, urine Negative [facility] DEPARTMENT OF PATHOLOGY AND GENOMIC MEDICINE Methadone metabolite Negative [facility] DEPARTMENT OF (EDDP), urine PATHOLOGY AND GENOMIC MEDICINE Opiates screen, urine Negative [facility] DEPARTMENT OF PATHOLOGY AND GENOMIC MEDICINE Oxycodone screen, urine Negative [facility] DEPARTMENT OF PATHOLOGY AND GENOMIC MEDICINE Phencyclidine screen, Negative [facility] DEPARTMENT OF urine PATHOLOGY AND GENOMIC MEDICINE Tricyclic screen, urine Negative [facility] DEPARTMENT OF Comment: PATHOLOGY AND Drug screen minimum [facility] MEDICINE concentration of detectability Amphetamines 1000 ng/mL [...] purposes only. Specimen Urine Performing Organization Address [facility] Phone Number [facility] [place] [address] PATHOLOGY AND GENOMIC MEDICINE * Urinalysis screen and microscopy, with reflex to culture (03/15/2018 10:30 PM CDT) Specimen site Clean catch [facility] DEPARTMENT OF PATHOLOGY AND GENOMIC MEDICINE Color, UA Straw [facility] DEPARTMENT OF PATHOLOGY AND GENOMIC MEDICINE Appearance, UA Clear [facility] DEPARTMENT OF PATHOLOGY AND GENOMIC MEDICINE Specific gravity, UA 1.018 1.001 - 1.035 [facility] DEPARTMENT OF PATHOLOGY AND GENOMIC MEDICINE pH, UA 6.0 5.0 - 8.5 [facility] DEPARTMENT OF PATHOLOGY AND GENOMIC MEDICINE Protein, UA Negative Negative [facility] DEPARTMENT OF PATHOLOGY AND GENOMIC MEDICINE Glucose, UA Negative Negative [facility] DEPARTMENT OF PATHOLOGY AND GENOMIC MEDICINE Ketones, UA Negative Negative [facility] DEPARTMENT OF PATHOLOGY AND GENOMIC MEDICINE Bilirubin, UA Negative Negative [facility] DEPARTMENT OF PATHOLOGY AND GENOMIC MEDICINE Blood, UA Negative Negative [facility] DEPARTMENT OF PATHOLOGY AND GENOMIC MEDICINE Nitrite, UA Negative Negative [facility] DEPARTMENT OF PATHOLOGY AND GENOMIC MEDICINE Urobilinogen, UA <2.0 <2.0 [facility] DEPARTMENT OF PATHOLOGY AND GENOMIC MEDICINE Leukocyte esterase, UA Negative Negative [facility] DEPARTMENT OF PATHOLOGY AND GENOMIC MEDICINE Epithelial cells, UA <1 /HPF [facility] DEPARTMENT OF PATHOLOGY AND GENOMIC MEDICINE WBC, UA None seen 0 - 1 /HPF [facility] DEPARTMENT OF PATHOLOGY AND GENOMIC MEDICINE RBC, UA 1 0 - 5 /HPF [facility] DEPARTMENT OF PATHOLOGY AND GENOMIC MEDICINE Bacteria, UA None seen None seen [facility] DEPARTMENT OF PATHOLOGY AND GENOMIC MEDICINE Yeast, UA None seen [facility] DEPARTMENT OF PATHOLOGY AND GENOMIC MEDICINE Yeast with pseudohyphae, None seen [facility] DEPARTMENT OF UA PATHOLOGY AND GENOMIC MEDICINE Specimen Urine Performing Organization Address City/[facility] Phone Number [place] [phone] PATHOLOGY AND GENOMIC MEDICINE * Urine culture (03/15/2018 10:30 PM CDT) Urine culture SEE COMMENTComment: [facility] DEPARTMENT OF Bacteriuria screen negative. PATHOLOGY AND GENOMIC MEDICINE Performing Organization Address City/[facility]/Zipcode Phone Number [facility] OF [address] [place], [place] [id number] PATHOLOGY AND GENOMIC MEDICINE * CT Stroke Brain Wo Contrast (03/15/2018 6:33 PM CDT) Only the most recent of 2 results within the time period is included. Narrative Performed At EXAMINATION:CT STROKE BRAIN WO CONTRAST [facility] CLINICAL HISTORY:[id number] HR POST TPA IMAGING COMPARISON:MRI of the brain dated March 15, [address] images were acquired using low-dose technique with automated exposure control. IMPRESSION: Evolving recent ischemia in the left MCA territory in the left insula and left basal ganglia with no interval progression and no associated mass effect or hemorrhagic conversion. [id number] Procedure Note Interface, Radiology Results - 03/15/2018 6:42 PM CDT EXAMINATION: CT [...] no associated mass effect or hemorrhagic conversion. [facility][id number] Performing Organization Address City/State/Zipcode Phone Number [facility] [address] [place] [address] * MRI Brain Wo Contrast (03/15/2018 6:20 PM CDT) Narrative Performed At [facility] Study:MRI BRAIN WO CONTRAST History:Stroke COMPARISON:CT brain [...] without acute hemorrhage or significant mass effects. [facility]-[id number] Procedure Note Interface, Radiology Results - 03/15/2018 [...] without acute hemorrhage or significant mass effects. [facility]-[id number] Performing Organization Address City/[facility]/[place] [address] * Homocystine, plasma (03/15/2018 2:00 PM CDT) Homocysteine 10.9 0.0 - 15.0 umol/L [facility] DEPARTMENT OF Comment: PATHOLOGY AND The risk for coronary vascular GENOMIC MEDICINE disease increases progressively with homocysteine concentration.A 3.4 times greater risk is associated with a homocysteine concentration of greater than 15.8 umol/L as compared to a concentration below 14.1 umol/L. Specimen Plasma specimen Performing Organization Address [facility] [place] [address] PATHOLOGY AND GENOMIC MEDICINE * Sedimentation rate (03/15/2018 2:00 PM CDT) Sedimentation rate 12 (H) 0 - 10 mm/hr [facility] DEPARTMENT OF PATHOLOGY AND GENOMIC MEDICINE Specimen Blood Performing Organization Address [facility] [place] [address] PATHOLOGY AND GENOMIC MEDICINE * Rheumatoid factor (03/15/2018 2:00 PM CDT) Rheumatoid factor <10 0 - 13 IU/mL [facility] DEPARTMENT OF PATHOLOGY AND GENOMIC MEDICINE Specimen Plasma specimen Performing Organization Address [facility] [place] [address] PATHOLOGY AND GENOMIC MEDICINE * C-reactive protein (03/15/2018 2:00 PM CDT) CRP 0.39 0.00 - 0.50 mg/dL [facility] DEPARTMENT OF PATHOLOGY AND GENOMIC MEDICINE Specimen Plasma specimen Performing Organization Address [facility] [place] [address] PATHOLOGY AND [facility] MED[facility] * Thyroid stimulating hormone (03/15/2018 2:00 PM CDT) TSH 1.75 0.27 - 4.20 uIU/mL [facility] DEPARTMENT OF PATHOLOGY AND GENOMIC MEDICINE Specimen Plasma specimen Performing Organization Address City/[facility]/[place] [address] PATHOLOGY AND GENOMIC MEDICINE * T4, free (03/15/2018 2:00 PM CDT) T4, free 1.1 0.9 - 1.7 ng/dL [facility] DEPARTMENT OF PATHOLOGY AND GENOMIC MEDICINE Specimen Plasma specimen Performing Organization Address City/[facility] [place] [address] PATHOLOGY AND GENOMIC MEDICINE * Hemoglobin A1c (03/15/2018 2:00 PM CDT) Hemoglobin A1C 6.9 (H) 4.0 - 5.6 % [facility] DEPARTMENT OF Comment: PATHOLOGY AND HbA1c cutoffs for diagnosing [facility] MEDIC[facility] diabetes: 4.0% - 5.6%=normal 5.7% - 6.4%=increased risk for diabetes (prediabetes) >=6.5%=diabetes Goals for glycemic control (ADA 2016) < 7.0%Target for non adults with diabetes. More or less stringent targets may be appropriate for individual patients. <7.5% Target for Children and adolescents with type 1 diabetes. Specimen Blood Performing Organization Address City/[facility]/Zipcode Phone Number [facility] [place] [address] PATHOLOGY AND GENOMIC MEDICINE * Folate level (03/15/2018 2:00 PM CDT) Folate 16.9 4.8 - 24.2 ng/mL [facility] DEPARTMENT OF PATHOLOGY AND GENOMIC MEDICINE Specimen Serum Performing Organization Address [facility] [place] [address] PATHOLOGY AND GENOMIC MEDICINE * Vitamin B12 level (03/15/2018 2:00 PM CDT) Vitamin B12 493 211 - 946 pg/mL [facility] DEPARTMENT OF Comment: PATHOLOGY AND Significant overlap exists GENOMIC MEDICINE between normal and deficiency states. However, most patients with deficiencies will have Serum B12 <200 pg/mL. Specimen Serum Performing Organization Address [facility]/[place] [address] PATHOLOGY AND GENOMIC MEDICINE * Echocardiogram complete w contrast and 3D if needed (03/15/2018 10:05 AM CDT) Narrative [facility] At [facility] Report [address] [place] [address] [address] [address] Pat.Name:Yanet CHONG.ID:[id number] .Date: 03/15/2018 Refer.:AGATHA LOERA MD Exam Time: 8:31:00 AMStudy Type:Routine Echo Height:69inWeight:187lb BSA: 2.01 m2 DOBAge:1940,77Y Sex: MALEBP:118/65 HR:46 bpmSonogrphr: CARMITA Alejo Pat. Stat.:Inpatient Room:[place] [address] Study Status:Final Echo Event ID:[id number] Order ID:[id number] Reason for Study:Stroke, suspected cardiac etiology Procedures:2D [...] PA systolic pressure. MEASUREMENTS: 2D Parasternal [place] LVOT 2.1 cmLA Ds4.6 cm LVIDd5.6 cmIndex2.8 cm/m Ao An1.9 cm LVIDs2.9 cmAo Rtd 3.3 cm Index1.7 cm/m LV%fs 48.7 % LV Gzzm935.7 g(122-174) IVSd 0.8 cmLVM Index 88.4 g/m2 LVPWd0.9 cmRWT0.3 LA Sng Plane LA Area 23.4 cm2(8.8-23.4) LA Vol81.2 ml Index40.4 ml/m LA LngAx 5.6 cm DOPPLER LVOT Stroke Vol LVOT 2.1 cmLVOT CO3.7 l/min LVOT TVI22.2 cmLVOT CI1.8 l/m/m2 LVOT Tm342 wwxnJS53 bpm LVOT SV 76.8 ml Signed 03/15/2018 11:07 AM Eduardo Osorio MD Procedure Note Interface, Radiology Results In - 03/15/2018 11:08 AM CDT Echocardiography Report [address] [place] [address] Pat.Name: DES CHONG Pat.ID: [id number] .Date: 03/15/2018 Refer.MD: AGATHA LOERA MD Exam Time: 8:31:00 AM Study Type:Routine Echo Height: 69in Weight: 187lb BSA: 2.01 m2 Age: 11 1940,77Y Sex: MALE BP: 118/65 HR: 46 bpm Sonogrphr: CARMITA Alejo Pat. Stat.:Inpatient Room: [place] [address] Study Status:Final Echo Event ID:[id number] Order ID: [id number] Reason for Study:Stroke, suspected cardiac etiology Procedures:2D [...] PA systolic pressure. MEASUREMENTS: 2D Parasternal [place] LVOT 2.1 cm LA Ds 4.6 cm [...] AM Eduardo Osorio MD Performing Organization Address City/[facility]/Zipcode Phone Number [facility] [address] [place] [address] * Type and screen (03/15/2018 1:12 AM CDT) ABO grouping A [facility] DEPARTMENT OF PATHOLOGY AND GENOMIC MEDICINE Rh type POS [facility] DEPARTMENT OF PATHOLOGY AND GENOMIC MEDICINE Antibody screen (gel) NEG [facility] DEPARTMENT OF PATHOLOGY AND GENOMIC MEDICINE Specimen Blood Performing Organization Address City/[facility] Phone Number [facility] DEPARTMENT OF [address] [place] [id number] PATHOLOGY AND GENOMIC MEDICINE * IR 3D Recon Slices Snapshots RDMPS (03/14/2018 9:21 PM CDT) Narrative Performed At Non-Reportable/No report needed. [facility] Performing Organization Address City/[facility] Phone Number [facility] [address] [place] [address] * IR Perq Art M-Thrombect NFS (03/14/2018 [...] by the performing physician. [id number] Procedure Note Hm Interface, Radiology Results Incoming - 03/16/2018 8:52 AM CDT PROCEDURE: IR PERQ ART M-THROMBECT NFS This exam was performed in [facility] [place]. Fluoro time: 15.6 minutes Dose: 2791 mGy IMPRESSION: A complete separate report will be issued by the performing physician. [id number] Performing Organization Address [facility] Phone Number [facility] [address] [place] [address] * XR Chest 1 Vw Portable (03/14/2018 6:24 PM CDT) Narrative Performed At EXAMINATION:XR CHEST 1 VW PORTABLE [facility] CLINICAL HISTORY:Chest Pain COMPARISON:None IMPRESSION: Hypoinflation Minimal patchy bibasilar atelectasis Tiny right costophrenic angle effusion. Cardiomegaly with vascular ectasia. No infiltrate or congestion. No pneumothorax Single view chest [id number] Procedure Note Interface, Radiology Results Incoming - 03/14/2018 6:32 PM CDT EXAMINATION: XR CHEST 1 VW PORTABLE CLINICAL HISTORY: Chest Pain COMPARISON: None IMPRESSION: Hypoinflation Minimal patchy bibasilar atelectasis Tiny right costophrenic angle effusion. Cardiomegaly with vascular ectasia. No infiltrate or congestion. No pneumothorax Single view chest [id number] Performing Organization Address [facility] Phone Number [facility] [address] [place] [address] * CTA Neck W Wo Contrast (03/14/2018 6:08 PM CDT) Narrative Performed At EXAMINATION:CT ANGIOGRAM [facility]K [facility] WO [facility] CLINICAL HISTORY:STROKE COMPARISON:None. TECHNIQUE: Neck CTA with [...] at 03/14/2018 6:16 PM who verbalized understanding. [facility]-[id number] Procedure Note Hm Interface, Radiology Results Incoming [...] at 03/14/2018 6:16 PM who verbalized understanding. [facility]-[id number] Performing Organization Address City/State/Zipcode Phone Number [facility] [address] [place] [address] * CTA Head W Wo Contrast (03/14/2018 6:07 PM CDT) Narrative Performed At EXAMINATION: CT ANGIOGRAM HEAD W WO CONTRAST HM [facility] CLINICAL HISTORY: STROKE COMPARISON:None TECHNIQUE:Imaging of the [...] M2 and M3 branches likely via collaterals. [id number] Procedure Note Interface, Radiology Results Incoming - [...] M2 and M3 branches likely via collaterals. [id number] Performing Organization Address City/State/Zipcode Phone Number [facility] [address] [place] [address] * ECG ED Preliminary Interpretation - NOT AN ORDER (03/14/2018 5:11 PM CDT) Narrative Performed At Wan Parikh MD 03/14/2018 10:16 PM ECG ED Preliminary Interpretation - Not an Order Performed by: WAN CHAVEZ Authorized by: WAN CHAVEZ ECG reviewed by ED Physician in the absence of a floor covering contractor: yes Interpretation: Interpretation: abnormal Rate: ECG rate:57 [...] imminent or life-threatening deterioration of the following conditions:TECHNICAL SERVICES SPECIALIST failure or compromise Critical care was time [...] CDT) Troponin <0.300 0.000 - 0.300 ng/mL [facility] DEPARTMENT OF Comment: PATHOLOGY AND 0.30 - 1.49 GENOMIC MEDICINE ng/mlMay indicate increased risk of acute coronary syndrome. >=1.5 ng/ml Consistent with acute myocardial infarction. The diagnostic value of a single normal or non-diagnostic result is questionable.Serial samples at 2-6 hour intervals are required to rule out acute myocardial injury. Specimen Plasma specimen Performing Organization Address City/State/Zipcode Phone Number [facility] [place] [address] [place] [address] PATHOLOGY AND GENOMIC MEDICINE * Comprehensive metabolic panel (03/14/2018 5:10 PM CDT) Sodium 142 135 - 148 mEq/L [facility] DEPARTMENT OF PATHOLOGY AND GENOMIC MEDICINE Potassium 3.9 3.5 - 5.0 mEq/L [facility] DEPARTMENT OF PATHOLOGY AND GENOMIC MEDICINE Chloride 104 98 - 112 mEq/L [facility] DEPARTMENT OF PATHOLOGY AND GENOMIC MEDICINE CO2 23 (L) 24 - 31 mEq/L [facility] DEPARTMENT OF PATHOLOGY AND GENOMIC MEDICINE Anion gap 15@ANIO 7 - 15 mEq/L [facility] DEPARTMENT OF PATHOLOGY AND GENOMIC MEDICINE BUN 19 8 - 23 mg/dL [facility] DEPARTMENT OF PATHOLOGY AND GENOMIC MEDICINE Creatinine 1.3 (H) 0.7 - 1.2 mg/dL [facility] DEPARTMENT OF PATHOLOGY AND GENOMIC MEDICINE Glucose 120 (H) 65 - 99 mg/dL [facility] DEPARTMENT OF PATHOLOGY AND GENOMIC MEDICINE Calcium 9.1 8.8 - 10.2 mg/dL [facility] DEPARTMENT OF PATHOLOGY AND GENOMIC MEDICINE Protein 7.4 6.3 - 8.3 g/dL [facility] DEPARTMENT OF Comment: PATHOLOGY AND GENOMIC MEDICINE 4.6-7.0 g/dL 1 week 4.4-7.6 g/dL 7 months-1year 5.1-7.3 g/dL 1-2 years5.6-7 .5 g/dL >3 years6.0-8 .0 g/dL 18-150 6.3-8.3 g/dL Albumin 4.3 3.5 - 5.0 g/dL [facility] DEPARTMENT OF PATHOLOGY AND GENOMIC MEDICINE A/G ratio 1.4 0.7 - 3.8 [facility] DEPARTMENT OF PATHOLOGY AND GENOMIC MEDICINE Alkaline phosphatase 54 40 - 129 U/L [facility] DEPARTMENT OF PATHOLOGY AND GENOMIC MEDICINE AST 27 10 - 50 U/L [facility] DEPARTMENT OF PATHOLOGY AND GENOMIC MEDICINE ALT 35 5 - 50 U/L [facility] DEPARTMENT OF PATHOLOGY AND GENOMIC MEDICINE Total bilirubin 0.3 0.0 - 1.2 mg/dL [facility] DEPARTMENT OF PATHOLOGY AND GENOMIC MEDICINE Specimen Plasma specimen Performing Organization Address City/State/Zipcode Phone Number [facility] [address] [place] [address] PATHOLOGY AND GENOMIC MEDICINE after 10/31/2017 Insurance Payer Benefit Subscriber ID Type Phone Address Plan / Group MEDICARE MEDICARE xxxxxxxxxxx Medicare [place] PART A [place] B WORKERS COMP MISC xxxx xxxxxxxx Workers WORKER'S Comp COMP Advance Directives Patient has advance care planning documents on file. For more information, ivan aldrich contact: Hung Mcgee [address] [place] [address]
--- NOTE | 2018-11-01 12:18 | NUR ---
(Anisha Crews) emergency contact
--- NOTE | 2018-11-01 12:31 | Diagnostic Imaging Report ---
Examination: Single AP view of the chest. COMPARISON: CT scan of the chest without contrast 08/26/2018 INDICATION: Anemia, plan for blood transfusion DISCUSSION: Lungs are well-inflated. No focal airspace consolidation, pleural effusion, or pneumothorax. Right lower lobe pulmonary nodules described on comparison CT, the larger of which was sampled under CT guidance 09/01/2018, are not identified by plain radiography on this single frontal projection. Loop recorder projects over the left heart. Heart size is normal. No pulmonary edema. Tortuous thoracic aorta. No acute osseous abnormality. IMPRESSION: 1. No acute cardiopulmonary abnormalities. Signed by: Dr. Ronal Acosta M.D. on 11/01/2018 12:28 PM
[2018-11-01 12:45] LABS: CLARITY,URINE SL CLOUDY (CLEAR); KETONES,URINE TRACE (NEGATIVE)
[2018-11-01 12:46] LABS: BILIRUBIN,URINE 1+ (NEGATIVE); LEUKOCYTE ESTERASE ,URINE TRACE (NEGATIVE); NITRITE,URINE NEGATIVE (NEGATIVE); PROTEIN,URINE DIPSTICK 2+ (NEGATIVE); URINE UROBILINOGEN 0.2 mg/dL (0.2 - 1)
[2018-11-01 12:47] LABS: COLOR,URINE AMBER (YELLOW)
[2018-11-01 13:07] LABS: WBC,URINE (MAN) 0-5 /HPF (0-5)
[2018-11-01 13:08] LABS: BACTERIA,URINE FEW /HPF; RBC,URINE >50 /HPF (0-5)
[2018-11-01 13:11] LABS: BASOPHILS % 0.2 % (0.0-1.0); EOSINOPHILS # (AUTO) 0.1 (0.0-0.4); EOSINOPHILS % 1.4 % (0.0-6.0); HEMATOCRIT 21.9 % (38.2-49.6); LYMPHOCYTES # (AUTO) 1.1 (1.0-3.2); LYMPHOCYTES % 25.3 % (18.0-39.1); MEAN CORPUSCULAR HEMOGLOBIN 19.7 pg (28-32); MEAN CORPUSCULAR HGB CONC 27.4 g/dL (31-35); MONOCYTES # (AUTO) 0.3 (0.2-0.8); MONOCYTES % 7.1 % (4.4-11.3); NEUTROPHILS # (AUTO) 2.9 (2.1-6.9); NEUTROPHILS % 65.8 % (38.7-80.0); PLATELET COUNT 273 x10e3/uL (140-360); RED BLOOD COUNT 3.04 x10e6/uL (4.3-5.7); RED CELL DISTRIBUTION WIDTH 23.6 % (11.7-14.4)
[2018-11-01 13:20] LABS: INR 2.45; PROTHROMBIN TIME 28.4 seconds (11.9-14.5)
[2018-11-01 13:21] LABS: PARTIAL THROMBOPLASTIN TIME 42.8 seconds (23.8-35.5)
[2018-11-01] MEDS ORDERED: SODIUM CHLORIDE 0.9% 250ML 250 ML IV ONE ×2 (13:30→14:15)
[2018-11-01 13:33] LABS: ALANINE AMINOTRANSFERASE 17 IU/L (0-55); ALBUMIN 3.8 g/dL (3.5-5.0); ALBUMIN/GLOBULIN RATIO 1.2 (0.8-2.0); ALKALINE PHOSPHATASE 53 IU/L (40-150); ANION GAP 9.7 mmol/L (8-16); BLOOD UREA NITROGEN 18 mg/dL (7-26); BUN/CREATININE RATIO 16 (6-25); CARBON DIOXIDE 24 mmol/L (22-29); CHLORIDE 109 mmol/L (98-107); CREATINE KINASE 255 IU/L (30-200); CREATININE, SERUM 1.13 mg/dL (0.72-1.25); EST GLOMERULAR FILTRATION RATE > 60 ML/MIN (60-); GLUCOSE 128 mg/dL (74-118); POTASSIUM 3.7 mmol/L (3.5-5.1); SODIUM 139 mmol/L (136-145)
[2018-11-01] MEDS ORDERED: ONDANSETRON HCL INJ 2MG/ML 2ML 2 MG/ML VIAL IV PRN (14:00)
--- OUTSIDE RECORDS SUMMARY | 2018-11-01 14:35 | XMS REPORT | Clinical Summary ---
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); Abnormal [...] Ronal Earl MD Ep loop recorder insertion [14234 (CPT)] 03/18/2018 Surgery Procedural Cardiology Agatha Pop [...] Taken Vital Sign Reading 07/18/2018 10:02 AM IMPLEMENTATION ANALYST Blood Pressure 143/79 07/18/2018 10:02 AM IMPLEMENTATION ANALYST Pulse 83 05/12/2018 7:27 AM CDT Temperature 36.8 C (98.2 F) 05/12/2018 7:27 AM CDT Respiratory Rate 16 05/12/2018 8:30 AM CDT Oxygen Saturation 98% - Inhaled Oxygen - Concentration 07/18/2018 10:02 AM IMPLEMENTATION ANALYST Weight 82.6 kg (182 lb) 07/18/2018 10:02 AM IMPLEMENTATION ANALYST Height 170.2 cm (5' 7") 07/18/2018 10:02 AM IMPLEMENTATION ANALYST Body Mass Index 28.51 Plan of Treatment Care Team Description Date Type Specialty Volpi, Agatha Michaels MD [address] [address] 01/23/2019 Office Visit Neurology Health Maintenance Due Date Last Done Comments SHINGLES VACCINES (#1) 1989 65+ PNEUMOCOCCAL VACCINE 2004 (1 of 2 - PCV13) PNEUMOCOCCAL 2004 POLYSACCHARIDE VACCINE AGE 65 AND OVER INFLUENZA VACCINE 04/06/2018 Implants Device Identifier Shelf Expiration Date Model / Serial / Lot Implanted Type Area Manufactur er [id number] / / Monitor Cardiac Implant Confirm Rx Cardiac N/A: N/A ST MAKI - [id number] Pacemakers MEDICAL Implanted: 03/18/2018 (Quantity not and INC on file) Related Products 01/03/2019 [id number] / / [id number] Device Vasclr Clsr Vasoactive Cardiovasc N/A: N/A Intstnl Peptd 6fr Angio-Seal - ular [id number] Implants Implanted: 03/14/2018 (Quantity not on file) [id number] / / Catheter Bln Otw 2.5mm 12mm Cardiovasc N/A: N/A [employer] Sprinter - [id number] ular [place] - Implanted: 05/11/2018 (Quantity not Implants VASCULAR on file) [id number] / / Catheter 6fr X 13cm Antonia Plus Central N/A: N/A MICRO Intermediate - [id number] Venous VENTION Implanted: 03/14/2018 (Quantity not Catheters on file) [id number] / / Stent System 3.0 X 18mm Resolute Coronary N/A: N/A [employer] Salvador Otw Coronary - [id number] Stents [place] - Implanted: 05/11/2018 (Quantity not CARDIAC on file) RYHTYM MGMT [id number] / / Stent System 2.75 X 08mm Resolute Coronary N/A: N/A [employer] Haynes Otw Coronary - [id number] Stents [place] - Implanted: 05/11/2018 (Quantity not CARDIAC on file) RYHTYM MGMT [id number] / / Catheter Thrmbtmy Neuron Max 088 Surgical N/A: N/A PENUMBRA Str 6fr 80x4cm - [id number] Implants; INC Implanted: 03/14/2018 (Quantity not Expanders; on file) Extenders; Surgical Wires 02/04/2020 [id number] / / [id number] System Clsr Sut Meditd 6fr Perclose Surgical N/A: N/A HONG Proglide - [id number] Implants; VASCULAR Implanted: 05/11/2018 (Quantity not Expanders; DEVICES on file) Extenders; Surgical Wires 02/04/2020 [id number] / / [id number] System Clsr Sut Meditd 6fr Perclose Surgical N/A: N/A HONG Proglide - [id number] Implants; VASCULAR Implanted: 05/11/2018 (Quantity not Expanders; DEVICES on file) Extenders; Surgical Wires Procedures Comments Procedure Name Priority Date/Time Associated Diagnosis LIPID PANEL Routine 07/18/2018 Hyperlipidemia LDL goal 10:43 AM IMPLEMENTATION ANALYST <70 HC COMPLETE BLD COUNT Routine 05/12/2018 [...] CDT PARTIAL THROMBOPLASTIN STAT 05/10/2018 Atherosclerosis of benton TIME (PTT) 9:23 AM CDT coronary artery with angina pectoris, unspecified whether benton or transplanted heart Cerebral infarction due to thrombosis of left middle cerebral artery PROTHROMBIN TIME WITH INR STAT 05/10/2018 Atherosclerosis of benton 9:23 AM CDT coronary artery with angina pectoris, unspecified whether benton or transplanted heart Cerebral infarction due to thrombosis of left middle cerebral artery CBC HEMOGRAM STAT 05/10/2018 Atherosclerosis of benton 9:23 AM CDT coronary artery with angina pectoris, unspecified whether benton or transplanted heart Cerebral infarction due to thrombosis of left middle cerebral artery BASIC METABOLIC PANEL STAT 05/10/2018 Atherosclerosis of benton 9:23 AM CDT coronary artery with angina pectoris, unspecified whether benton or transplanted heart Cerebral infarction due to [...] MMODE SPECTRAL 10:05 AM CDT COLOR DOPPLER (83386) POC GLUCOSE Routine 03/15/2018 7:40 AM CDT [...] PRELIMINARY Routine 03/14/2018 INTERPRETATION 5:11 PM CDT [place] [facility], E/M Routine 03/14/2018 30-74 MINUTES [...] Results * Lipid panel (07/18/2018 10:43 AM IMPLEMENTATION ANALYST) Only the most recent of 3 results within the time period is included. Cholesterol 122 <200 mg/dL [facility] Triglycerides 197 (H) <150 mg/dL [facility] HDL cholesterol 38 (L) >40 mg/dL [facility] LDL cholesterol 62Comment: Result obtained by <100 mg/dL [facility] direct LDL measurement [facility] Lipid panel SeeBelow [facility] interpretation Comment: HOSPITAL Total Cholesterol (mg/dL) <200 [...] specimen Performing Organization Address City/State/Zipcode Phone Number [facility] [place] [address] PATHOLOGY AND GENOMIC MEDICINE [address] * CBC with platelet and differential (05/12/2018 4:48 AM CDT) Only the most recent of 3 results within the time period is included. WBC 6.04 4.50 - 11.00 k/uL [facility] DEPARTMENT OF PATHOLOGY AND GENOMIC MEDICINE RBC 4.15 (L) 4.40 - 6.00 m/uL [facility] DEPARTMENT OF PATHOLOGY AND GENOMIC MEDICINE HGB 12.4 (L) 14.0 - 18.0 g/dL [facility] DEPARTMENT OF PATHOLOGY AND GENOMIC MEDICINE HCT 37.8 (L) 41.0 - 51.0 % [facility] DEPARTMENT OF PATHOLOGY AND GENOMIC MEDICINE MCV 91.1 82.0 - 100.0 fL [facility] DEPARTMENT OF PATHOLOGY AND GENOMIC MEDICINE MCH 29.9 27.0 - 34.0 pg [facility] DEPARTMENT OF PATHOLOGY AND GENOMIC MEDICINE MCHC 32.8 31.0 - 37.0 g/dL [facility] DEPARTMENT OF PATHOLOGY AND GENOMIC MEDICINE RDW - SD 45.8 37.0 - 55.0 fL [facility] DEPARTMENT OF PATHOLOGY AND GENOMIC MEDICINE MPV 10.0 8.8 - 13.2 fL [facility] DEPARTMENT OF PATHOLOGY AND GENOMIC MEDICINE Platelet count 176 150 - 400 k/uL [facility] DEPARTMENT OF PATHOLOGY AND GENOMIC MEDICINE Nucleated RBC 0.00 /100 WBC [facility] DEPARTMENT OF PATHOLOGY AND GENOMIC MEDICINE Neutrophils 62.5 39.0 - 69.0 % [facility] DEPARTMENT OF PATHOLOGY AND GENOMIC MEDICINE Lymphocytes 25.2 25.0 - 45.0 % [facility] DEPARTMENT OF PATHOLOGY AND GENOMIC MEDICINE Monocytes 9.3 0.0 - 10.0 % [facility] DEPARTMENT OF PATHOLOGY AND GENOMIC MEDICINE Eosinophils 2.2 0.0 - 5.0 % [facility] DEPARTMENT OF PATHOLOGY AND GENOMIC MEDICINE Basophils 0.3 0.0 - 1.0 % [facility] DEPARTMENT OF PATHOLOGY AND GENOMIC MEDICINE Immature granulocytes 0.5Comment: "Immature 0.0 - 1.0 % [facility] DEPARTMENT OF granulocytes" (promyelocytes, PATHOLOGY AND myelocytes, metamyelocytes) GENOMIC MEDICINE Specimen Blood Performing Organization Address [place] [place] [facility] DEPARTMENT OF [address] [place] [address] PATHOLOGY AND GENOMIC MEDICINE * ECG Pre/Post Op (05/12/2018 4:15 AM CDT) Ventricular rate 56 [facility] MUSE Atrial rate 56 [facility] MUSE [place] interval 152 [facility] MUSE QRSD interval 112 [facility] MUSE QT interval 422 [facility] MUSE QTC interval 407 [facility] MUSE QRS axis 1 -47 [facility] MUSE T wave axis -3 [facility] MUSE EKG impression Sinus bradycardia-Incomplete [facility] MUSE right bundle branch block-Left anterior fascicular block-Minimal voltage criteria for LVH, may be normal variant-Septal infarct (cited on or before 14-MAR-2018)-Abnormal ECG-In automated comparison with ECG of 11-MAY-2018 11:57,-No significant change was found- Performing Organization Address City/State/Zipcode Phone Number [facility] MUSE [address] [place], [place] [id number] * Estimated GFR (05/12/2018 4:00 AM CDT) Only the most recent of 5 results within the time period is included. GFR Non Af Amer 65 mL/min/1.73 m2 [facility] DEPARTMENT OF PATHOLOGY AND GENOMIC MEDICINE GFR Af Amer 78 mL/min/1.73 m2 [facility] DEPARTMENT OF Comment: PATHOLOGY AND Chronic kidney [...] Americans. Specimen Plasma specimen Performing Organization Address [facility] [place] [address] PATHOLOGY AND [employer] MEDICINE * Basic metabolic panel (05/12/2018 4:00 AM CDT) Only the most recent of 4 results within the time period is included. Sodium 139 135 - 148 mEq/L [facility] DEPARTMENT OF PATHOLOGY AND GENOMIC MEDICINE Potassium 4.1 3.5 - 5.0 mEq/L [facility] DEPARTMENT OF PATHOLOGY AND GENOMIC MEDICINE Chloride 105 98 - 112 mEq/L [facility] DEPARTMENT OF PATHOLOGY AND GENOMIC MEDICINE CO2 25 24 - 31 mEq/L [facility] DEPARTMENT OF PATHOLOGY AND GENOMIC MEDICINE Anion gap 9@ANIO 7 - 15 mEq/L [facility] DEPARTMENT OF PATHOLOGY AND GENOMIC MEDICINE BUN 16 8 - 23 mg/dL [facility] DEPARTMENT OF PATHOLOGY AND GENOMIC MEDICINE Creatinine 1.1 0.7 - 1.2 mg/dL [facility] DEPARTMENT OF PATHOLOGY AND GENOMIC MEDICINE Glucose 130 (H) 65 - 99 mg/dL [facility] DEPARTMENT OF PATHOLOGY AND GENOMIC MEDICINE Calcium 8.9 8.8 - 10.2 mg/dL [facility] DEPARTMENT OF PATHOLOGY AND GENOMIC MEDICINE Specimen Plasma specimen Performing Organization Address [facility] [place] [address] PATHOLOGY AND GENOMIC MEDICINE * ECG 12 lead (05/11/2018 11:57 AM CDT) Only the most recent of 3 results within the time period is included. Ventricular rate 50 [facility] MUSE Atrial rate 50 [facility]USE [place] interval 172 [facility] MUSE QRSD interval 118 [...] leads- Performing Organization Address City/State/Zipcode Phone Number [facility] MUSE [address] [place] [address] * Cv pathology lab technician procedure (05/11/2018 10:06 AM CDT) Narrative Performed At [facility] Successful PCI to mid LAD with 3.0x18 mm Resolute Haynes BERNA followed by 2.75x8 mm Resolute Haynes BERNA to distal edge for small edge dissection See dictated op report for further details TITLE OF OPERATION: Percutaneous coronary intervention with medicated stent to the proximal and mid left anterior descending coronary artery. SURGEON: Dr. Arpit Blanchard. VENEER SLICING MACHINE OPERATOR: Dr. Agatha Beckham. 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 2.Abnormal cardiac functional study. 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 2.Abnormal cardiac functional study. ANESTHESIA: Conscious sedation with Versed and fentanyl. ESTIMATED BLOOD LOSS: 20 mL. COMPLICATIONS: None. OPERATIVE COURSE: After informed consent was obtained from the patient and with appropriate time-out procedures called, the patient was originally taken to the cardiac catheterization laboratory by my partner, Dr. Ronal Earl.Dr. Earl performed diagnostic coronary angiography using 5-Austrian system.Once accomplished, I was called to the pathology lab technician to assess for the possibility of percutaneous [...] patient previously, we proceeded with intervention. The 5-Austrian system was exchanged for a 6-Austrian sheath.The patient received bivalirudin with subsequent ACT greater than 230 seconds prior to wire passage. The guiding catheter chosen was a 6-Austrian XB LAD 3.5-sidehole variety. Preprocedural angiograms were taken in two views.A 0.014 extra support exchange length wire was then inserted across the stenosis and the lesion, predilated with a 2.5 x 12 mm balloon.The lesion was then successfully stented with a 3.0 x 18 mm Resolute Haynes medicated stent.The stent was properly placed, but postprocedural angiogram suggested a nonocclusive but nonetheless threatening dissection eccentrically in the superior aspect of the vessel at the distal end of the stenosis.Thus, a second stent, specifically a 2.75 x 8 mm Resolute Haynes stent was placed at the distal end [...] Performing Organization Address City/State/Zipcode Phone Number [facility] [address] [place] [address] * Cv pathology lab technician procedure (05/11/2018 10:06 AM CDT) Narrative Performed At [facility] LM: normal LAD: mid 95% stenosis, first diagonal proximal 50% Ramus: no significant stenosis LCX: no significant stenosis RCA: mild plaque Performing Organization Address [facility] Phone Number [facility] [address] [place] [address] * Activated clotting time (05/11/2018 9:08 AM CDT) Only the most recent of 2 results within the time period is included. Activated clotting time 426 (H) 96 - 152 sec [facility] DEPARTMENT OF Comment: PATHOLOGY AND Meter ID: [id number] GENOMIC MEDICINE Driver Lifter Of Sanitation Truck: Norberto Carlson Performing Organization Address [facility] Cent[facility] Phone Number [facility] DEPARTMENT OF [address] [place] [address] PATHOLOGY AND [facility] MEDICINE * Partial thromboplastin time, activated (05/10/2018 9:23 AM CDT) Only the most recent of 2 results within the time period is included. PTT 35.3 23.0 - 36.0 sec [facility] DEPARTMENT OF Comment: PATHOLOGY AND PTT therapeutic range for [facility] unfractionated heparin is 61.0-112.0 seconds which corresponds to Anti-Xa 0.3-0.7 U/ml. Specimen Blood Performing Organization Address [facility] [place] Phone Number [address] [place] [address] PATHOLOGY AND Conjectur MEDICINE * Prothrombin time with INR (05/10/2018 9:23 AM CDT) Only the most recent of 2 results within the time period is included. Prothrombin time 17.7 (H) 12.0 - 15.0 sec [facility] DEPARTMENT OF PATHOLOGY AND [employer] MEDICINE INR 1.4 [facility] DEPARTMENT OF Comment: PATHOLOGY AND The International Normalized [facility] MEDICINE Ratio (INR) is a therapeutic monitoring tool for patients who are stable on oral anticoagulant therapy. An INR of 2.0-3.0 is suggested for deep vein thrombosis/pulmonary embolism. Specimen Blood Performing Organization Address [facility] [place] Phone Number [address] [place] [address] PATHOLOGY AND [employer] MEDICINE * CBC hemogram (05/10/2018 9:23 AM CDT) Only the most recent of 3 results within the time period is included. WBC 5.74 4.50 - 11.00 k/uL [facility] DEPARTMENT OF PATHOLOGY AND [employer] MEDICINE RBC 4.65 4.40 - 6.00 m/uL [facility] DEPARTMENT OF PATHOLOGY AND GENOMIC MEDICINE HGB 13.7 (L) 14.0 - 18.0 g/dL [facility] DEPARTMENT OF PATHOLOGY AND GENOMIC MEDICINE HCT 41.2 41.0 - 51.0 % [facility] DEPARTMENT OF PATHOLOGY AND GENOMIC MEDICINE MCV 88.6 82.0 - 100.0 fL [facility] PATHOLOGY AND GENOMIC MEDICINE MCH 29.5 27.0 - 34.0 pg [facility] DEPARTMENT OF PATHOLOGY AND GENOMIC MEDICINE MCHC 33.3 31.0 - 37.0 g/dL [facility] OF PATHOLOGY AND GENOMIC MEDICINE RDW - SD 43.8 37.0 - 55.0 fL [facility] PATHOLOGY AND GENOMIC MEDICINE MPV 9.8 8.8 - 13.2 fL [facility] PATHOLOGY AND GENOMIC MEDICINE Platelet count 202 150 - 400 k/uL [facility] PATHOLOGY AND GENOMIC MEDICINE Nucleated RBC 0.00 /100 WBC [facility] DEPARTMENT PATHOLOGY [facility] GENOMIC MEDICINE Specimen Blood Performing Organization Address City/[facility] Cent[facility]ode Phone Number [address] [place] [address] PATHOLOGY AND GENOMIC MEDICINE * Cv electrophysiology procedure (03/18/2018 11:39 AM CDT) Narrative Performed At [facility] Successful loop recorder implant. Performing Organization Address [facility] Cent[facility] Phone Number [facility] [address] [place] [address] * Cardiac mri stroke eval w contrast (03/17/2018 9:20 AM CDT) Narrative Performed At [facility] CMR Report Name:DES CHONG :1940 Scan Date: [...] LV mass/thrombus. VIABILITY: There is limited transmural TN of the proximal to mid LAD territory. [...] Anteroseptal | Severe Hypo| 26-50% || Sub-Endo TN| | Mid Inferoseptal | Severe Hypo| 51-75% || Sub-Endo TN| | Mid Inferior | Normal/Hyper | None ||| | Mid Inferolateral| Normal/Hyper | None ||| | Mid Anterolateral| Normal/Hyper | None ||| | Apical Anterior| Normal/Hyper | 51-75% || Sub-Endo TN| | Apical Septal| Akinetic | 51-75% || Sub-Endo TN| | Apical Inferior| Akinetic | 26-50% ||| | Apical Lateral | Normal/Hyper | None ||| | Goodspring | Akinetic | 51-75% || Sub-Endo TN| + + + + +----- + | [...] INFO GENERAL --------- CONTRAST AGENT TYPE:Dotarem LOT NUMBER:[id number] EXPIRATION DATE:2019-03-05 00:00:00 VOLUME ADMINISTERED:25 ml DOSAGE [...] RT[ , ]Dee Hoskins BILLING Patient Account [id number] CPT Codes 33580, 22622, 19278 ICD10 Codes I63.9, I25.5 Report generated by Precession, a product of [employer] Procedure Note Interface, Radiology Results In - 03/17/2018 3:38 PM CDT [facility] CMR Report Name: DES CHONG : 1940 [...] LV mass/thrombus. VIABILITY: There is limited transmural TN of the proximal to mid LAD territory. [...] Hypo | 26-50% | | Sub- Endo TN | | Mid Inferoseptal | Severe Hypo | 51-75% | | Sub- Endo TN | | Mid Inferior | Normal/Hyper | None | | | | Mid Inferolateral | Normal/Hyper | None | | | | Mid Anterolateral | Normal/Hyper | None | | | | Apical Anterior | Normal/Hyper | 51-75% | | Sub- Endo TN | | Apical Septal | Akinetic | 51-75% | | Sub- Endo TN | | Apical Inferior | Akinetic | 26-50% | | | | Apical Lateral | Normal/Hyper | None | | | | Goodspring | Akinetic | 51-75% | | Sub- Endo TN | + + + + + + [...] GENERAL CONTRAST AGENT TYPE: Dotarem LOT NUMBER: [id number] EXPIRATION DATE: 2019-03-05 00:00:00 VOLUME ADMINISTERED: 25 [...] RT[ , ]Dee Hoskins BILLING Patient Account [id number] CPT Codes 32515, 22405, 00645 ICD10 Codes I63.9, I25.5 Report generated by Precession, a product of [employer] Performing Organization Address City/State/Zipcode Phone Number [facility] [address] [place] [address] * POC glucose (03/16/2018 11:27 AM CDT) Only the most recent of 12 results within the time period is included. POC glucose 154 (H) 65 - 99 mg/dL [facility] DEPARTMENT OF Comment: PATHOLOGY AND [facility] Notified RN GENOMIC MEDICINE Meter ID: [id number] Driver Lifter Of Sanitation Truck: Sujit Sherman Performing Organization Address [facility] Cent[facility]ode Phone Number [facility] [place] [address] PATHOLOGY AND GENOMIC MEDICINE * Magnesium level (03/16/2018 2:36 AM CDT) Magnesium 2.1 1.6 - 2.4 mg/dL [facility] DEPARTMENT OF PATHOLOGY AND GENOMIC MEDICINE Specimen Plasma specimen Performing Organization Address [facility] [place] [address] PATHOLOGY AND GENOMIC MEDICINE * Urine drugs of abuse screen (03/15/2018 11:18 PM CDT) Only the most recent of 2 results within the time period is included. Amphetamine screen, urine Negative [facility] DEPARTMENT OF PATHOLOGY AND GENOMIC MEDICINE Barbiturate screen, urine Negative [facility] DEPARTMENT OF PATHOLOGY AND GENOMIC MEDICINE Benzodiazepine screen, Negative [facility] DEPARTMENT OF urine PATHOLOGY AND GENOMIC MEDICINE Cannabinoid screen, urine Negative [facility] DEPARTMENT OF PATHOLOGY AND GENOMIC MEDICINE Cocaine screen, urine Negative [facility] DEPARTMENT OF PATHOLOGY AND GENOMIC MEDICINE Methadone metabolite Negative [facility] DEPARTMENT OF (EDDP), urine PATHOLOGY AND GENOMIC MEDICINE Opiates screen, urine Negative [facility] DEPARTMENT OF PATHOLOGY AND GENOMIC MEDICINE Oxycodone screen, urine Negative [facility] DEPARTMENT OF PATHOLOGY AND GENOMIC MEDICINE Phencyclidine screen, Negative [facility] DEPARTMENT OF urine PATHOLOGY AND GENOMIC MEDICINE Tricyclic screen, urine Negative [facility] DEPARTMENT OF Comment: PATHOLOGY AND Drug screen minimum [facility] MEDICINE concentration of detectability Amphetamines 1000 ng/mL [...] purposes only. Specimen Urine Performing Organization Address [facility] Phone Number [facility] [place] [address] PATHOLOGY AND GENOMIC MEDICINE * Urinalysis screen and microscopy, with reflex to culture (03/15/2018 10:30 PM CDT) Specimen site Clean catch [facility] DEPARTMENT OF PATHOLOGY AND GENOMIC MEDICINE Color, UA Straw [facility] DEPARTMENT OF PATHOLOGY AND GENOMIC MEDICINE Appearance, UA Clear [facility] DEPARTMENT OF PATHOLOGY AND GENOMIC MEDICINE Specific gravity, UA 1.018 1.001 - 1.035 [facility] DEPARTMENT OF PATHOLOGY AND GENOMIC MEDICINE pH, UA 6.0 5.0 - 8.5 [facility] DEPARTMENT OF PATHOLOGY AND GENOMIC MEDICINE Protein, UA Negative Negative [facility] DEPARTMENT OF PATHOLOGY AND GENOMIC MEDICINE Glucose, UA Negative Negative [facility] DEPARTMENT OF PATHOLOGY AND GENOMIC MEDICINE Ketones, UA Negative Negative [facility] DEPARTMENT OF PATHOLOGY AND GENOMIC MEDICINE Bilirubin, UA Negative Negative [facility] DEPARTMENT OF PATHOLOGY AND GENOMIC MEDICINE Blood, UA Negative Negative [facility] DEPARTMENT OF PATHOLOGY AND GENOMIC MEDICINE Nitrite, UA Negative Negative [facility] DEPARTMENT OF PATHOLOGY AND GENOMIC MEDICINE Urobilinogen, UA <2.0 <2.0 [facility] DEPARTMENT OF PATHOLOGY AND GENOMIC MEDICINE Leukocyte esterase, UA Negative Negative [facility] DEPARTMENT OF PATHOLOGY AND GENOMIC MEDICINE Epithelial cells, UA <1 /HPF [facility] DEPARTMENT OF PATHOLOGY AND GENOMIC MEDICINE WBC, UA None seen 0 - 1 /HPF [facility] DEPARTMENT OF PATHOLOGY AND GENOMIC MEDICINE RBC, UA 1 0 - 5 /HPF [facility] DEPARTMENT OF PATHOLOGY AND GENOMIC MEDICINE Bacteria, UA None seen None seen [facility] DEPARTMENT OF PATHOLOGY AND GENOMIC MEDICINE Yeast, UA None seen [facility] DEPARTMENT OF PATHOLOGY AND GENOMIC MEDICINE Yeast with pseudohyphae, None seen [facility] DEPARTMENT OF UA PATHOLOGY AND GENOMIC MEDICINE Specimen Urine Performing Organization Address City/[facility] Phone Number [place] [phone] PATHOLOGY AND GENOMIC MEDICINE * Urine culture (03/15/2018 10:30 PM CDT) Urine culture SEE COMMENTComment: [facility] DEPARTMENT OF Bacteriuria screen negative. PATHOLOGY AND GENOMIC MEDICINE Performing Organization Address City/[facility]/Zipcode Phone Number [facility] OF [address] [place], [place] [id number] PATHOLOGY AND GENOMIC MEDICINE * CT Stroke Brain Wo Contrast (03/15/2018 6:33 PM CDT) Only the most recent of 2 results within the time period is included. Narrative Performed At EXAMINATION:CT STROKE BRAIN WO CONTRAST [facility] CLINICAL HISTORY:[id number] HR POST TPA IMAGING COMPARISON:MRI of the brain dated March 15, [address] images were acquired using low-dose technique with automated exposure control. IMPRESSION: Evolving recent ischemia in the left MCA territory in the left insula and left basal ganglia with no interval progression and no associated mass effect or hemorrhagic conversion. [id number] Procedure Note Interface, Radiology Results - 03/15/2018 [...] no associated mass effect or hemorrhagic conversion. [facility]-[id number] Performing Organization Address City/State/Zipcode Phone Number [facility] [address] [place] [address] * MRI Brain Wo Contrast (03/15/2018 6:20 [...] without acute hemorrhage or significant mass effects. [facility]-[id number] Procedure Note Interface, Radiology Results - 03/15/2018 [...] without acute hemorrhage or significant mass effects. [facility]-[id number] Performing Organization Address City/[facility]/[place] [address] * Homocystine, plasma (03/15/2018 2:00 PM CDT) Homocysteine 10.9 0.0 - 15.0 umol/L [facility] DEPARTMENT OF Comment: PATHOLOGY AND The risk for coronary vascular GENOMIC MEDICINE disease increases progressively with homocysteine concentration.A 3.4 times greater risk is associated with a homocysteine concentration of greater than 15.8 umol/L as compared to a concentration below 14.1 umol/L. Specimen Plasma specimen Performing Organization Address [facility] [place] [address] PATHOLOGY AND GENOMIC MEDICINE * Sedimentation rate (03/15/2018 2:00 PM CDT) Sedimentation rate 12 (H) 0 - 10 mm/hr [facility] DEPARTMENT OF PATHOLOGY AND GENOMIC MEDICINE Specimen Blood Performing Organization Address [facility] [address] PATHOLOGY AND GENOMIC MEDICINE * Rheumatoid factor (03/15/2018 2:00 PM CDT) Rheumatoid factor <10 0 - 13 IU/mL [facility] DEPARTMENT OF PATHOLOGY AND GENOMIC MEDICINE Specimen Plasma specimen Performing Organization Address [facility] [place] [address] PATHOLOGY AND GENOMIC MEDICINE * C-reactive protein (03/15/2018 2:00 PM CDT) CRP 0.39 0.00 - 0.50 mg/dL [facility] DEPARTMENT OF PATHOLOGY AND GENOMIC MEDICINE Specimen Plasma specimen Performing Organization Address [facility] [place] [address] PATHOLOGY AND [facility] MEDICINE * Thyroid stimulating hormone (03/15/2018 2:00 PM CDT) TSH 1.75 0.27 - 4.20 uIU/mL [facility] DEPARTMENT OF PATHOLOGY AND GENOMIC MEDICINE Specimen Plasma specimen Performing Organization Address City/[facility]/[place] [address] PATHOLOGY AND GENOMIC MEDICINE * T4, free (03/15/2018 2:00 PM CDT) T4, free 1.1 0.9 - 1.7 ng/dL [facility] DEPARTMENT OF PATHOLOGY AND GENOMIC MEDICINE Specimen Plasma specimen Performing Organization Address City/[facility] [place] [address] PATHOLOGY AND GENOMIC MEDICINE * Hemoglobin A1c (03/15/2018 2:00 PM CDT) Hemoglobin A1C 6.9 (H) 4.0 - 5.6 % [facility] DEPARTMENT OF Comment: PATHOLOGY AND HbA1c cutoffs for diagnosing [facility] MEDICINE diabetes: 4.0% - 5.6%=normal 5.7% - 6.4%=increased risk for diabetes (prediabetes) >=6.5%=diabetes Goals for glycemic control (ADA 2016) < 7.0%Target for non adults with diabetes. More or less stringent targets may be appropriate for individual patients. <7.5% Target for Children and adolescents with type 1 diabetes. Specimen Blood Performing Organization Address City/[facility]/Zipcode Phone Number [facility] [place] [address] PATHOLOGY AND GENOMIC MEDICINE * Folate level (03/15/2018 2:00 PM CDT) Folate 16.9 4.8 - 24.2 ng/mL [facility] DEPARTMENT OF PATHOLOGY AND GENOMIC MEDICINE Specimen Serum Performing Organization Address [facility] [place]erc[place] [address] PATHOLOGY AND GENOMIC MEDICINE * Vitamin B12 level (03/15/2018 2:00 PM CDT) Vitamin B12 493 211 - 946 pg/mL [facility] DEPARTMENT OF Comment: PATHOLOGY AND Significant overlap exists GENOMIC MEDICINE between normal and deficiency states. However, most patients with deficiencies will have Serum B12 <200 pg/mL. Specimen Serum Performing Organization Address [facility]/[place] [address] PATHOLOGY AND GENOMIC MEDICINE * Echocardiogram complete w contrast and 3D if needed (03/15/2018 10:05 AM CDT) Narrative [facility]formed At [facility] Report [address] [place] [address] 9[place] [address] Pat.Name:Yanet CHONG.ID:[id number] .Date: 03/15/2018 Refer.:AGATHA LOERA MD Exam Time: 8:31:00 AMStudy Type:Routine Echo Height:69inWeight:187lb BSA: 2.01 m2 DOBAge:1940,77Y Sex: MALEBP:118/65 HR:46 bpmSonogrphr: CARMITA Alejo Pat. Stat.:Inpatient Room:[place] [address] Study Status:Final Echo Event ID:[id number] Order ID:[id number] Reason for Study:Stroke, suspected cardiac etiology Procedures:2D [...] PA systolic pressure. MEASUREMENTS: 2D Parasternal Long [place] LVOT 2.1 cmLA Ds4.6 cm LVIDd5.6 cmIndex2.8 cm/m Ao An1.9 cm LVIDs2.9 cmAo Rtd 3.3 cm Index1.7 cm/m LV%fs 48.7 % LV Ysqp146.7 g(122-174) IVSd 0.8 cmLVM Index 88.4 g/m2 LVPWd0.9 cmRWT0.3 LA Sng Plane LA Area 23.4 cm2(8.8-23.4) LA Vol81.2 ml Index40.4 ml/m LA LngAx 5.6 cm DOPPLER LVOT Stroke Vol LVOT 2.1 cmLVOT CO3.7 l/min LVOT TVI22.2 cmLVOT CI1.8 l/m/m2 LVOT Tm342 ctbkZN35 bpm LVOT SV 76.8 ml Signed 03/15/2018 11:07 AM Eduardo Osorio MD Procedure Note Interface, Radiology Results In - 03/15/2018 11:08 AM CDT Echocardiography Report [address] [place] [address] Pat.Name: DES CHONG Pat.ID: [id number] .Date: 03/15/2018 Refer.MD: AGATHA LOERA MD Exam Time: 8:31:00 AM Study Type:Routine Echo Height: 69in Weight: 187lb BSA: 2.01 m2 Age: 11 1940,77Y Sex: MALE BP: 118/65 HR: 46 bpm Sonogrphr: CARMITA Alejo Pat. Stat.:Inpatient Room: [place] [address] Study Status:Final Echo Event ID:[id number] Order ID: [id number] Reason for Study:Stroke, suspected cardiac etiology Procedures:2D [...] PA systolic pressure. MEASUREMENTS: 2D Parasternal [place] LVOT 2.1 cm LA Ds 4.6 cm [...] AM Eduardo Osorio MD Performing Organization Address City/[facility]/Zipcode Phone Number [facility] [address] [place] [address] * Type and screen (03/15/2018 1:12 AM CDT) ABO grouping A [facility] DEPARTMENT OF PATHOLOGY AND GENOMIC MEDICINE Rh type POS [facility] DEPARTMENT OF PATHOLOGY AND GENOMIC MEDICINE Antibody screen (gel) NEG [facility] DEPARTMENT OF PATHOLOGY AND GENOMIC MEDICINE Specimen Blood Performing Organization Address City/[facility]ode Phone Number [facility] DEPARTMENT OF [address] [place] [phone] PATHOLOGY AND GENOMIC MEDICINE * IR 3D Recon Slices Snapshots RDMPS (03/14/2018 9:21 PM CDT) Narrative Performed At Non-Reportable/No report needed. [facility] Performing Organization Address City/[facility]ode Phone Number [facility] [address] [place] [address] * IR Perq Art M-Thrombect NFS (03/14/2018 [...] NFS This exam was performed in Main [facility]. Fluoro time: 15.6 minutes Dose: 2791 mGy IMPRESSION: A complete separate report will be issued by the performing physician. [id number] Performing Organization Address [facility] Phone Number [facility] [address] [place] [address] * XR Chest 1 Vw Portable (03/14/2018 6:24 PM CDT) Narrative Performed At EXAMINATION:XR CHEST 1 VW PORTABLE [facility] CLINICAL HISTORY:Chest Pain COMPARISON:None IMPRESSION: Hypoinflation Minimal patchy bibasilar atelectasis Tiny right costophrenic angle effusion. Cardiomegaly with vascular ectasia. No infiltrate or congestion. No pneumothorax Single view chest [id number] Procedure Note Interface, Radiology Results Incoming - 03/14/2018 6:32 PM CDT EXAMINATION: XR CHEST 1 VW PORTABLE CLINICAL HISTORY: Chest Pain COMPARISON: None IMPRESSION: Hypoinflation Minimal patchy bibasilar atelectasis Tiny right costophrenic angle effusion. Cardiomegaly with vascular ectasia. No infiltrate or congestion. No pneumothorax Single view chest [id number] Performing Organization Address [facility] [place] Phone Number [facility] [address] [place] [address] * CTA Neck W Wo Contrast (03/14/2018 6:08 PM CDT) Narrative Performed At EXAMINATION:CT ANGIOGRAM NECK W WO [facility]ICAL HISTORY:STROKE COMPARISON:None. TECHNIQUE: Neck CTA with [...] at 03/14/2018 6:16 PM who verbalized understanding. [facility]-[id number] Procedure Note Hm Interface, Radiology Results Incoming [...] at 03/14/2018 6:16 PM who verbalized understanding. [facility]-[id number] Performing Organization Address City/State/Zipcode Phone Number [facility] [address] [place] [address] * CTA Head W Wo Contrast (03/14/2018 [...] M2 and M3 branches likely via collaterals. [id number] Procedure Note Interface, Radiology Results Incoming - [...] M2 and M3 branches likely via collaterals. [id number] Performing Organization Address City/State/Zipcode Phone Number [facility] [address] [place] [address] * ECG ED Preliminary Interpretation - NOT AN ORDER (03/14/2018 5:11 PM CDT) Narrative Performed At Wan Parikh MD 03/14/2018 10:16 PM ECG ED Preliminary Interpretation - Not an Order Performed by: WAN CHAVEZ Authorized by: WAN CHAVEZ ECG reviewed by ED Physician in the absence of a press operator automatic: yes Interpretation: Interpretation: abnormal Rate: ECG rate:57 [...] imminent or life-threatening deterioration of the following conditions:PARAMEDIC RN failure or compromise Critical care was time [...] CDT) Troponin <0.300 0.000 - 0.300 ng/mL [facility] DEPARTMENT OF Comment: PATHOLOGY AND 0.30 - 1.49 GENOMIC MEDICINE ng/mlMay indicate increased risk of acute coronary syndrome. >=1.5 ng/ml Consistent with acute myocardial infarction. The diagnostic value of a single normal or non-diagnostic result is questionable.Serial samples at 2-6 hour intervals are required to rule out acute myocardial injury. Specimen Plasma specimen Performing Organization Address City/State/Zipcode Phone Number [facility] [place] [address] [place] [address] PATHOLOGY AND GENOMIC MEDICINE * Comprehensive metabolic panel (03/14/2018 5:10 PM CDT) Sodium 142 135 - 148 mEq/L [facility] DEPARTMENT OF PATHOLOGY AND GENOMIC MEDICINE Potassium 3.9 3.5 - 5.0 mEq/L [facility] DEPARTMENT OF PATHOLOGY AND GENOMIC MEDICINE Chloride 104 98 - 112 mEq/L [facility] DEPARTMENT OF PATHOLOGY AND GENOMIC MEDICINE CO2 23 (L) 24 - 31 mEq/L [facility] DEPARTMENT OF PATHOLOGY AND GENOMIC MEDICINE Anion gap 15@ANIO 7 - 15 mEq/L [facility] DEPARTMENT OF PATHOLOGY AND GENOMIC MEDICINE BUN 19 8 - 23 mg/dL [facility] DEPARTMENT OF PATHOLOGY AND GENOMIC MEDICINE Creatinine 1.3 (H) 0.7 - 1.2 mg/dL [facility] DEPARTMENT OF PATHOLOGY AND GENOMIC MEDICINE Glucose 120 (H) 65 - 99 mg/dL [facility] DEPARTMENT OF PATHOLOGY AND GENOMIC MEDICINE Calcium 9.1 8.8 - 10.2 mg/dL [facility] DEPARTMENT OF PATHOLOGY AND GENOMIC MEDICINE Protein 7.4 6.3 - 8.3 g/dL [facility] DEPARTMENT OF Comment: PATHOLOGY AND GENOMIC MEDICINE 4.6-7.0 g/dL 1 week 4.4-7.6 g/dL 7 months-1year 5.1-7.3 g/dL 1-2 years5.6-7 .5 g/dL >3 years6.0-8 .0 g/dL 18-150 6.3-8.3 g/dL Albumin 4.3 3.5 - 5.0 g/dL [facility] DEPARTMENT OF PATHOLOGY AND GENOMIC MEDICINE A/G ratio 1.4 0.7 - 3.8 [facility] DEPARTMENT OF PATHOLOGY AND GENOMIC MEDICINE Alkaline phosphatase 54 40 - 129 U/L [facility] DEPARTMENT OF PATHOLOGY AND GENOMIC MEDICINE AST 27 10 - 50 U/L [facility] DEPARTMENT OF PATHOLOGY AND GENOMIC MEDICINE ALT 35 5 - 50 U/L [facility] DEPARTMENT OF PATHOLOGY AND GENOMIC MEDICINE Total bilirubin 0.3 0.0 - 1.2 mg/dL [facility] DEPARTMENT OF PATHOLOGY AND GENOMIC MEDICINE Specimen Plasma specimen Performing Organization Address City/State/Zipcode Phone Number [facility] [address] [place] [address] PATHOLOGY AND GENOMIC MEDICINE after 10/31/2017 Insurance Payer Benefit Subscriber ID Type Phone Address Plan / Group MEDICARE MEDICARE xxxxxxxxxxx Medicare [place], [place] PART A AND B WORKERS COMP MISC xxxx xxxxxxxx Workers WORKER'S Comp COMP Advance Directives Patient has advance care planning documents on file. For more information, ivan aldrich contact: Hung Mcgee [address] [place] [address]
[2018-11-01] MEDS ORDERED: IOPAMIDOL 370 MG/ML 200 ML INFUS..BTL INJ ONE (15:23)
[2018-11-01] MEDS ORDERED: SODIUM CHLORIDE 0.9% 250ML 250 ML ONE ×3 (15:23→22:07)
--- NOTE | 2018-11-01 16:58 | Diagnostic Imaging Report ---
EXAMINATION: CT of the abdomen and pelvis with and without contrast. TECHNIQUE: Spiral CT images of the abdomen and pelvis were performed from the lung bases to the lesser trochanters after the intravenous administration of 100 cc Isovue-370. Excretory phase images were obtained in the prone position per hematuria protocol Coronal and sagittal reformatted images were obtained. COMPARISON: Chest radiograph 11/01/2018, CT abdomen and pelvis 08/24/2018 CLINICAL HISTORY:Hematuria DISCUSSION: ABDOMEN/PELVIS: LOWER THORAX:Subsegmental atelectasis dependent lingula and right middle lobe. Pulmonary nodules described on the comparison examination have nearly completely resolved with faint residual groundglass attenuation for example on series 6 image 18. HEPATOBILIARY: No focal hepatic lesions. No intra-or extrahepatic biliary ductal dilation. Gallbladder wall calcifications are again noted. Calcified granuloma segment 8. SPLEEN: No splenomegaly. PANCREAS: Mild ductal dilatation without focal mass lesion, unchanged. ADRENALS: No adrenal nodules. KIDNEYS/URETERS: Precontrast images show no renal, ureteral, or bladder calculi. Excretory phase images show a peripelvic right renal cyst, an exophytic left lower pole renal cyst, and multiple additional subcentimeter hypoattenuating lesions, too small to further characterize but likely represent additional small cysts. There are no filling defects within the upper collecting systems or ureters. PELVIC ORGANS/BLADDER: The urinary bladder is unremarkable. The prostate is markedly enlarged, measuring 6 cm transverse x 5.3 cm AP x 5.5 cm craniocaudal with mass effect upon the bladder base. Findings are similar to that seen 08/24/2018 PERITONEUM/RETROPERITONEUM: No ascites or pneumoperitoneum. LYMPH NODES: No pelvic sidewall, retroperitoneal, or mesenteric lymphadenopathy. VESSELS: Atherosclerotic calcification of the abdominal aorta, major branch vessels, and iliac arterial systems without aneurysmal dilatation. The common hepatic artery is replaced to the superior mesenteric artery. Portal vein, splenic vein, and central superior mesenteric vein are patent. Retroaortic left renal vein. GI TRACT: The large bowel shows no distention or wall thickening. A few sigmoid diverticula without evidence of diverticulitis. The appendix is not definitively identified. The stomach is collapsed with prominent rugal folds. No small bowel dilatation to suggest obstruction. BONES AND SOFT TISSUE: Healed bilateral superior and inferior pubic rami fracture deformities. Multilevel degenerative disc changes and facet arthropathy of the thoracolumbar spine. Dystrophic calcifications in the superficial fascia of the left gluteal region. Otherwise no focal soft tissue abnormalities IMPRESSION: Large prostate with mass effect and questionable invasion of the bladder base, likely accounting for the reported history of hematuria. Urology consultation and correlation with retrograde pyelography performed 08/29/2018 is suggested. No urolithiasis or additional filling defects within the upper collecting systems or ureters. Bilateral renal cysts. Porcelain gallbladder. Surgical consultation is suggested. Atherosclerotic vascular disease. Interval near complete resolution of right lower lobe pulmonary nodules relative to 08/24/2018, likely reflective of resolving infectious or inflammatory process. Correlation with pathology results from 09/01/2018 suggested. Signed by: Dr. Ronal Acosta M.D. on 11/01/2018 4:55 PM
[2018-11-01 22:00] VITALS: BP 133/69
[2018-11-01 22:45] VITALS: BP 131/71
[2018-11-02] VITALS (8 sets, daily range): BP systolic 119–147; BP diastolic 66–79
[2018-11-02] MEDS ORDERED: SODIUM CHLORIDE 0.9% 250ML 250 ML ONE ×2 (03:05→08:31)
--- NOTE | 2018-11-02 06:45 | NUR ---
report received from patient, patient aware of change and in no distress. Call kunz within reach and bed in lowest position.
[2018-11-02 12:02] LABS: BASOPHILS % 0.5 % (0.0-1.0); EOSINOPHILS # (AUTO) 0.1 (0.0-0.4); EOSINOPHILS % 2.1 % (0.0-6.0); HEMATOCRIT 32.5 % (38.2-49.6); HEMOGLOBIN 9.9 g/dL (14.0-18.0); LYMPHOCYTES # (AUTO) 1.1 (1.0-3.2); LYMPHOCYTES % 26.1 % (18.0-39.1); MEAN CORPUSCULAR HGB CONC 30.5 g/dL (31-35); MEAN CORPUSCULAR VOLUME 75.4 fL (81-99); MONOCYTES # (AUTO) 0.4 (0.2-0.8); MONOCYTES % 9.4 % (4.4-11.3); NEUTROPHILS # (AUTO) 2.7 (2.1-6.9); NEUTROPHILS % 61.9 % (38.7-80.0); PLATELET COUNT 224 x10e3/uL (140-360); RED BLOOD COUNT 4.31 x10e6/uL (4.3-5.7); RED CELL DISTRIBUTION WIDTH 21.3 % (11.7-14.4)
[2018-11-02 12:43] LABS: FERRITIN 10.19 ng/mL (21.81-274.66)
[2018-11-02 12:56] LABS: FOLATE 12.6 ng/mL (7.0-15.4)
--- NOTE | 2018-11-02 14:00 | NUR ---
SOCIAL WORK INITIAL ASSESSMENT Director Graphics to bedside to discuss plan of care with patient/family. CM/SW role and care transitions discussed. Anticipated discharge plan discussed along with duration of care. CM/SW discussed patients right to make decisions in care. CM/SW work hours given. 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 Name and number was also written on the patients whiteboard. Patient verbalized understanding of discussion. CM will follow-up with ongoing discharge and transition of care needs.
[2018-11-02] MEDS: DOCUSATE SODIUM 100 MG CAP PO SCH (17:04)
--- NOTE | 2018-11-02 18:24 | NUR ---
report given to Denisse at this time. Patient alert and oriented, in stable condition for transfer.
--- NOTE | 2018-11-02 18:48 | History and Physical ---
HISTORY OF PRESENT ILLNESS: The patient is a 78-year-old male with past medical history positive for benign prostatic hypertrophy status post recent prostatectomy, paroxysmal atrial fibrillation. He was sent to the hospital from the clinic because the hemoglobin was found to be 6.4. The patient was complaining of fatigue at that time. The patient received blood transfusion. REVIEW OF SYSTEMS: CARDIOVASCULAR: No chest pain or palpitation. RESPIRATORY: No shortness of breath. No cough. GASTROINTESTINAL: No nausea. No vomiting. No diarrhea. He denies abdominal pain. He denies melenic stools. He denies rectal bleeding. He denies vomiting blood. GENITOURINARY: No frequency. No dysuria. No hematuria. ALLERGIES: CURRENTLY, HE IS NOT ALLERGIC TO ANYTHING. SOCIAL HISTORY: He does not smoke. He does not drink. PAST MEDICAL HISTORY: Positive for benign prostatic hypertrophy status post prostatectomy and paroxysmal atrial fibrillation. 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 PHYSICAL EXAMINATION: HEART: Showed regular rhythm. No murmur or added sound. LUNGS: Clear bilaterally. ABDOMEN: Soft. EXTREMITIES: Show no evidence of cyanosis, edema, or trauma. LABORATORY DATA: EKG showed sinus rhythm with premature supraventricular complexes right bundle-branch block and LVH. Last blood work showed BMP; sodium 139, potassium 3.7, chloride 109, CO2 of 24, BUN 18, creatinine 1.13, glucose 128. CBC; white blood count 4.35, hemoglobin 6.0, hematocrit 21.9, platelet count 273,000. PT 28.4, INR 2.45, PTT 42.8. AST 21, ALT 17, total bilirubin 0.4, alkaline phophatase 56. FINAL IMPRESSION: 1. Acute anemia, rule out occult gastrointestinal bleeding. 2. Paroxysmal atrial fibrillation. 3. Benign prostatic hypertrophy. 4. History of coronary artery disease. 5. Status post cerebrovascular accident without motor deficit. PLAN OF TREATMENT: Two units of blood today. We are going to hold on the anticoagulation. We are going to order an iron, TIBC, ferritin, vitamin B12 levels. We are going to get Urology consult, Dr. Fernandez, because the patient had prostatectomy before and we are going to consult any workup. Stool guaiac was ordered to rule out the occult bleeding. After that, a CBC will be done today and then tomorrow also, so no anticoagulation for now. MD RIVKA Owens/TRISTEN /[id number]
[2018-11-02] MEDS: CRESTOR 10MG PO SCH (22:59)
[2018-11-03] VITALS (8 sets, daily range): BP systolic 127–157; BP diastolic 68–77
[2018-11-03] MEDS ORDERED: IRON SUCROSE 100 MG in SODIUM CHLORIDE 0.9% 100 ML 100 ML IV SCH (05:00)
[2018-11-03 06:11] LABS: BASOPHILS % 0.4 % (0.0-1.0); EOSINOPHILS # (AUTO) 0.2 (0.0-0.4); EOSINOPHILS % 2.2 % (0.0-6.0); HEMATOCRIT 32.3 % (38.2-49.6); HEMOGLOBIN 9.9 g/dL (14.0-18.0); LYMPHOCYTES # (AUTO) 1.7 (1.0-3.2); LYMPHOCYTES % 25.7 % (18.0-39.1); MEAN CORPUSCULAR HEMOGLOBIN 22.9 pg (28-32); MEAN CORPUSCULAR HGB CONC 30.7 g/dL (31-35); MEAN CORPUSCULAR VOLUME 74.8 fL (81-99); MONOCYTES # (AUTO) 0.8 (0.2-0.8); MONOCYTES % 11.6 % (4.4-11.3); NEUTROPHILS % 59.8 % (38.7-80.0); PLATELET COUNT 238 x10e3/uL (140-360); RED BLOOD COUNT 4.32 x10e6/uL (4.3-5.7)
[2018-11-03 06:45] LABS: BLOOD UREA NITROGEN 14 mg/dL (7-26); BUN/CREATININE RATIO 13 (6-25); CALCIUM 8.8 mg/dL (8.4-10.2); CARBON DIOXIDE 22 mmol/L (22-29); CHLORIDE 106 mmol/L (98-107); CREATININE, SERUM 1.04 mg/dL (0.72-1.25); EST GLOMERULAR FILTRATION RATE > 60 ML/MIN (60-); GLUCOSE 118 mg/dL (74-118); SODIUM 135 mmol/L (136-145)
[2018-11-03] MEDS: DOCUSATE SODIUM 100 MG CAP PO SCH ×2 (08:18→18:06)
[2018-11-03] MEDS: CYANOCOBALAMIN INJ 1,000 MCG/ML VIAL IM SCH (08:18)
[2018-11-03] MEDS: IRON SUCROSE 100 MG in SODIUM CHLORIDE 0.9% 100 ML 100 ML IV SCH (08:18)
--- NOTE | 2018-11-03 08:30 | NUR ---
md jenelle caraballo ordered a jumbo of FFP to be given due to high INR and scheduled colo and endoscopy wednesday morning. orders received. consent has been signed by pt at this time
[2018-11-03] MEDS ORDERED: NON-FORMULARY MEDICATION (Rosuvastatin Calcium (Crestor) 40 MG) SCH (09:00)
[2018-11-03] MEDS ORDERED: SODIUM CHLORIDE 0.9% 250ML 250 ML ONE (09:36)
--- NOTE | 2018-11-03 09:43 | NUR ---
FFP unit started. verified with monica jacobs at bedside . will monitor pt closely
[2018-11-03] MEDS: CEFUROXIME AXETIL 250 MG TAB PO SCH ×2 (11:30→18:06)
[2018-11-03 12:52] LABS: INR 1.05; PROTHROMBIN TIME 14.6 seconds (11.9-14.5)
[2018-11-03 12:53] LABS: PARTIAL THROMBOPLASTIN TIME 32.5 seconds (23.8-35.5)
[2018-11-03] MEDS ORDERED: PEG (High)/E-LYTE SOLN 4,000 ML BTL PO ONE (14:00)
--- NOTE | 2018-11-03 16:40 | NUR ---
MD Frank ALANIZ AWARE OF NEW PTT AND INR LEVEL , ORDERS TO CONSENT FOR ENDO AND COLONOSCOPY GIVEN
--- NOTE | 2018-11-03 17:49 | Progress Note ---
DATE: Internal Medicine Progress Note SUBJECTIVE: The patient is doing well after receiving the blood transfusion. His hemoglobin was 6.0 when he came, now it is 9.9 after the blood transfusion. has been seeing the patient. He has iron-deficiency anemia. The patient is getting iron transfusion. Most likely is gastrointestinal bleed, even further stool guaiac is negative. will decide about endoscopic evaluation. PHYSICAL EXAMINATION: VITAL SIGNS: Blood pressure is 142/77, temperature 37.1, heart rate 58 per minute, respiratory rate 18 per minute, O2 saturation 97%. HEART: Showed regular rhythm. No murmur or added sounds. LUNGS: Clear bilaterally. ABDOMEN: Soft. EXTREMITIES: Show no evidence of cyanosis or hematoma. LABORATORY DATA: On the BMP, sodium 135, potassium 4.0, chloride 106, CO2 of 22, BUN 14, creatinine 1.04, glucose 118. On CBC, white blood count 6.74, hemoglobin 9.9, hematocrit 32.3, platelet count 238,000. PT 14.6, INR 1.05, PTT 32.5. AST , ALT 17, total bilirubin 0.4, alkaline phosphate 53. FINAL IMPRESSION: 1. Acute anemia, rule out gastrointestinal bleed. 2. Iron-deficiency anemia. 3. Paroxysmal atrial fibrillation. 4. Benign prostatic hypertrophy status post prostatectomy. PLAN OF TREATMENT: Continue iron infusion. Continue Zofran 4 mg IV q.4 hours as needed, Colace 100 mg twice a day, Crestor 40 mg daily, vitamin B12 1000 mcg daily, cefuroxime 250 mg twice a day. We are to make a decision about the endoscopic evaluation, which will do to find out the source of the bleeding. MD RIVKA Owens/TRISTEN /[id number]
--- NOTE | 2018-11-03 18:29 | NUR ---
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 NO ROOMS AVAILABLE UPSTAIRS AT THIS TIME
--- NOTE | 2018-11-03 19:14 | NUR ---
Bedside report received. family member at bedside. patient aaox3, resp even an unlabored, on room air. no s/s of distress. denies pain. denies needs. BM in toilet clear for colonoscopy scheduled for tomorrow. bed locked and in lowest position, call light within easy reach. will continue to monitor patient closely.
[2018-11-03] MEDS: CRESTOR 10MG PO SCH (21:43)
[2018-11-04] VITALS (8 sets, daily range): BP systolic 128–150; BP diastolic 64–80
--- NOTE | 2018-11-04 00:06 | NUR ---
WALKING ROUNDS. DR. ALANIZ ROUNDING. PATIENT IN STABLE CONDITION. DENIES PAIN.CALL LIGHT REMAINS WITHIN EASY REACH.
[2018-11-04 05:56] LABS: BASOPHILS % 0.6 % (0.0-1.0); EOSINOPHILS # (AUTO) 0.2 (0.0-0.4); EOSINOPHILS % 4.1 % (0.0-6.0); HEMATOCRIT 33.4 % (38.2-49.6); HEMOGLOBIN 9.9 g/dL (14.0-18.0); LYMPHOCYTES # (AUTO) 1.4 (1.0-3.2); MEAN CORPUSCULAR HEMOGLOBIN 22.6 pg (28-32); MEAN CORPUSCULAR HGB CONC 29.6 g/dL (31-35); MEAN CORPUSCULAR VOLUME 76.3 fL (81-99); MONOCYTES # (AUTO) 0.7 (0.2-0.8); MONOCYTES % 13.3 % (4.4-11.3); NEUTROPHILS # (AUTO) 2.6 (2.1-6.9); NEUTROPHILS % 52.8 % (38.7-80.0); PLATELET COUNT 242 x10e3/uL (140-360); RED BLOOD COUNT 4.38 x10e6/uL (4.3-5.7); RED CELL DISTRIBUTION WIDTH 22.3 % (11.7-14.4)
[2018-11-04] MEDS: DOCUSATE SODIUM 100 MG CAP PO SCH ×2 (09:00→17:00)
[2018-11-04] MEDS: CYANOCOBALAMIN INJ 1,000 MCG/ML VIAL IM SCH (10:18)
[2018-11-04] MEDS: CEFUROXIME AXETIL 250 MG TAB PO SCH ×2 (10:19→17:00)
[2018-11-04] MEDS: IRON SUCROSE 100 MG in SODIUM CHLORIDE 0.9% 100 ML 100 ML IV SCH (10:19)
--- NOTE | 2018-11-04 10:20 | NUR ---
ASSESSMENT COMPLETE NO DISTRESS NOTED, UPDATED ON POC VOICED UNDERSTANDING, DENIES PAIN AT THIS TIME, L AC 20G NO SS OF INFILTRATION NOTED, NO OTHER CO VOICED CALL LIGHT IN REACH WILL CONTINUE TO MONITOR
--- NOTE | 2018-11-04 15:00 | NUR ---
DOWN TO OR LEFT IN STABLE CONDITION
--- NOTE | 2018-11-04 17:24 | Progress Note ---
DATE: Internal Medicine Progress Note SUBJECTIVE: The patient is waiting to undergo an EGD and colonoscopy today. Hemoglobin and hematocrit so far are stable. He underwent transfusion of blood and also iron transfusion. PHYSICAL EXAMINATION: VITAL SIGNS: Blood pressure 136/80, temperature 37.1, heart rate 54 per minute, respiratory rate 18 per minute, oxygen saturation 97%. HEART: Showed regular rhythm. No murmur or added sound. LUNGS: Clear bilaterally. ABDOMEN: Soft. EXTREMITIES: Show no evidence of cyanosis or hematoma. LABORATORY DATA: BMP; sodium 135, potassium 4.0, chloride 106, CO2 of 22, BUN 14, creatinine 1.04, glucose 118. CBC; WBC 4.90, hemoglobin 9.9, hematocrit 33.4, platelet count 242,000. PT 14.6, INR 1.05, PTT 32.5. AST 21, ALT 17, total bilirubin 0.4, alkaline phosphate 53. FINAL IMPRESSION: 1. Acute anemia secondary to most likely gastrointestinal bleed. 2. Paroxysmal atrial fibrillation. 3. Benign prostatic hypertrophy. 4. Iron deficiency. PLAN OF TREATMENT: He is going to underwent an EGD and colonoscopy today to find the source of the bleeding. Continue Zofran 4 mg p.o. q.4 hours as needed, Colace 100 mg twice a day, fluvastatin 40 mg daily, vitamin B12 1000 mcg daily, and cefuroxime 250 mg twice a day prescribed to him for UTI. Once we see what the endoscopy report show, then we can decide if patient can go home as long as there is no evidence of any active bleeding. MD RIVKA Owens/TRISTEN /[id number]
[2018-11-04] MEDS ORDERED: PROPOFOL IV EMULSION 10 MG/ML 50 ML VIAL ONE (18:03)
[2018-11-04] MEDS ORDERED: EPHEDRINE SULFATE INJ 50 MG/10 ML SYR ONE (18:03)
[2018-11-04] MEDS ORDERED: HYOSCYAMINE SULFATE 0.5 MG/ML INJ ONE (18:03)
[2018-11-04] MEDS ORDERED: LIDOCAINE HCL 2% LOCAL INJ 5 ML SDV VIAL INJ ONE (18:03)
[2018-11-04] MEDS ORDERED: PANTOPRAZOLE SOD 40 MG TABEC PO ONE (19:45)
[2018-11-04] MEDS ORDERED: MIDAZOLAM HCL 2 MG/2 ML VIAL ONE (19:47)
--- NOTE | 2018-11-04 19:53 | NUR ---
RECEIVED PATIENT FROM PACU VIA HOSPITAL BED. PATIENT IS ALERT AND ORIENTED. NO COMPLAINT OF PAIN. FAMILY MEMBER AT BEDSIDE. CALL LIGHT WITH IN REACHED.
[2018-11-04] MEDS: CRESTOR 10MG PO SCH (20:31)
[2018-11-05] VITALS: BP 130/64
--- NOTE | 2018-11-05 00:51 | Operative Report ---
DATE OF PROCEDURE: 11/04/2018 SURGEON: Vazquez Rainey MD PROCEDURE: Esophagogastroduodenoscopy with biopsies and a colonoscopy with polypectomy. REFERRING PHYSICIAN: Dr. Bob Ritter. INDICATIONS FOR EGD: Anemia. INDICATIONS FOR COLONOSCOPY: Iron deficiency anemia. MEDICATION: The patient was done under MAC. Please see anesthesiologist's note. PROCEDURE IN DETAIL: With the patient in left lateral decubitus position, flexible fiberoptic Olympus gastroscope was introduced into the esophagus under direct visualization without any difficulty. There was some patchy erythema noted in distal esophagus. The scope was then advanced with ease into the stomach traversing a small sliding hiatal hernia. Mucosa overlying the antrum and the body revealed some patchy erythema and [id number] edema and biopsies were obtained and sent to stain for H pylori. There was an approximately 1.2 cm sized submucosal lesion noted in the mid antrum along the greater curvature and that was biopsied. The pylorus was normal in contour and shape, was intubated with ease and the scope was advanced all the way to the 2nd portion of the duodenum. The scope was then withdrawn slowly. Mucosa overlying the proximal second portion appeared to be within normal limits. There was an extrinsic compression noted against the anterior wall of the duodenal bulb with a normal overlying mucosa. This probably should be investigated later with a CAT scan of the abdomen if it has not been done. The scope was then withdrawn back into the stomach and retroflexed, and mucosa overlying the fundus and cardia appeared to be within normal limits. The scope was then straightened out and it was subsequently withdrawn. The patient tolerated procedure well. IMPRESSION: 1. Distal esophagitis, mild. 2. Small sliding hiatal hernia. 3. Gastritis, biopsied. Biopsies sent to stain for H pylori. 4. Submucosal sessile lesion approximately 1.2 cm, antrum biopsied. PLAN: Follow up pathology. Initiate Protonix 40 mg one p.o. q.a.m. a.c. The patient was then turned around after adequate lubrication of the anal canal. Flexible fiberoptic Olympus colonoscope was inserted into the rectum with ease and advanced all the way to the cecum. It was then withdrawn slowly. Mucosa overlying the cecum appeared to be within normal limits. Scattered diverticular disease was noted pretty much throughout. The scope was then withdrawn slowly. Two polyps were snared from the ascending colon and two polyps were snared from the descending colon. One polyp was hot biopsied from the sigmoid and the rectum appeared to be within normal limits. The scope was then retroflexed into the distal rectum and small internal hemorrhoids were noted, none of which was actively bleeding. The scope was then straightened out and it was subsequently withdrawn. The patient tolerated procedure well. IMPRESSION: 1. Diverticulosis. 2. Ascending colon polyps x2 snared. 3. Descending colon polyps x2 snared. 4. Sigmoid colon polyp x1 hot biopsied. 5. Internal hemorrhoids none actively bleeding. PLAN: Followup pathology. The patient will need a small bowel series to complete workup. This can be done on an outpatient basis. A followup colonoscopy might be of benefit in three years. Vazquez Rainey MD [facility]IN[facility] /[id number] cc: Bob Ritter MD
[2018-11-05 04:00] VITALS: BP 110/61
[2018-11-05 07:47] VITALS: BP 110/57
[2018-11-05 08:20] VITALS: BP 110/57
[2018-11-05] MEDS: CEFUROXIME AXETIL 250 MG TAB PO SCH (08:20)
[2018-11-05] MEDS: CYANOCOBALAMIN INJ 1,000 MCG/ML VIAL IM SCH (08:20)
[2018-11-05] MEDS: IRON SUCROSE 100 MG in SODIUM CHLORIDE 0.9% 100 ML 100 ML IV SCH (08:20)
[2018-11-05] MEDS: DOCUSATE SODIUM 100 MG CAP PO SCH (08:20)
[2018-11-05 11:53] VITALS: BP 110/68
--- NOTE | 2018-11-06 06:50 | Discharge Summary ---
ADDENDUM: I talked with Dr. 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 He is completely asymptomatic. He has no gallstones. He recommended outpatient evaluation for a possible cholecystectomy because of a possible increased risk of colonic cancer that has been explained to the family. He is not in an emergent situation. Does not need to remove the gallbladder right now, so that can be done as an outpatient, but I will with Dr. Fausto Isbell, surgeon, and with the family. They are going to follow up with him as an outpatient for the possibility of cholecystectomy at that time. MD RIVKA Owens/TRISTEN /[id number]
--- NOTE | 2018-11-06 07:51 | Discharge Summary ---
HOSPITAL COURSE: This is a 78-year-old male, who has a past medical history positive for prostatectomy in the past and history of paroxysmal atrial fibrillation, came here because of severe anemia, found in the clinic with a hemoglobin of 6.6. When he came to the hospital, hemoglobin was slightly low at 6.0. He received blood transfusion. He had an EGD and colonoscopy done as a part of workup for anemia. On the EGD, he was found to have distal esophagitis, which was mild small sliding hiatal hernia and gastritis, which was biopsied and stain was sent for H. pylori. He was found to have submucosal lesion in the antrum biopsy. He had a colonoscopy, which showed diverticulosis, ascending colon polyps x2 snare, descending colon polyps x2 those were snared also, sigmoid colon polyp x1 he had a biopsy, also internal hemorrhoids were noted, none were bleeding. CT of the abdomen was done also, showed a large prostate with a mass effect and questionable invasion of the bladder base, likely accounting for a reported history of hematuria. 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 Surgical consultation is suggested also. He has also internal near-complete resolution of right lower lobe pulmonary nodules relative to August 24kel reflecting resolving infectious or inflammatory process. Correlation with pathology results from 09/01/2018 suggested. PHYSICAL EXAMINATION: HEART: Showed regular rhythm. No murmur or added sound. LUNGS: Clear bilaterally. ABDOMEN: Soft. EXTREMITIES: Show no evidence of cyanosis, edema, or trauma. LABORATORY DATA: On BMP, sodium 135, potassium 4.0, chloride 106, CO2 of 22, BUN 14, creatinine 1.04, glucose 118. CBC: White blood count 4.90, hemoglobin 9.9, hematocrit 33.4, and platelet count 242,000. PT 14.6, INR 1.05, PTT 32.5, AST 21, ALT 17, total bilirubin 0.4, alkaline phosphatase 53. IMPRESSION: 1. Episode of acute anemia. 2. Porcelain gallbladder. 3. Paroxysmal atrial fibrillation. 4. Benign prostatic hypertrophy, status post prostatectomy. PLAN OF TREATMENT: The patient will continue with Crestor 40 mg at bedtime, vitamin B12 1000 mcg p.o. daily, cefuroxime 250 mg twice a day, prescribed by Dr. Fernandez. The patient would be seen by Dr. Fadi Isbell, surgeon, as an outpatient for evaluation of a porcelain gallbladder. The case has been discussed with the family at the bedside. They were told that he had no gallstones, no need for doing a cholecystectomy right now, but in the future he needs to be evaluated by the surgeon for a possible cholecystectomy. The patient is asymptomatic right now from the gallbladder. Vital signs to important to follow up with the surgeon just to make sure that the gallbladder does not need to be removed. Everything has been explained to the patient and to the family at the bedside. We are going to arrange for surgical followup with Dr. Fadi Isbell for the porcelain gallbladder that he has. follow up me in approximately a week. MD RIVKA Owens/TRISTEN /[id number]
== END 2018-11-05 14:24 | disposition home or self-care (01) | DRG 378 ==
LOC: ER 11:42 → ERHOLD 14:32 → IMCU 21:25 → OBSVTOIN 11-02 13:32 → MED/SURG 11-02 18:27 → UNDODISOB 11-02 19:00
PROVIDERS: ADMIT Internal Medicine; ATTEND Internal Medicine
PROC: 30233N1 Transfusion of Nonautologous Red Blood Cells into Peripheral Vein, Percutaneous Approach (ICD-10-PCS; 2018-11-02)
PROC: 30233K1 Transfusion of Nonautologous Frozen Plasma into Peripheral Vein, Percutaneous Approach (ICD-10-PCS; 2018-11-03)
PROC: 0DB78ZX Excision of Stomach, Pylorus, Via Natural or Artificial Opening Endoscopic, Diagnostic (ICD-10-PCS; 2018-11-04)
PROC: 0DBK8ZX Excision of Ascending Colon, Via Natural or Artificial Opening Endoscopic, Diagnostic (ICD-10-PCS; principal; 2018-11-04 16:00)
PROC: 0DBN8ZX Excision of Sigmoid Colon, Via Natural or Artificial Opening Endoscopic, Diagnostic (ICD-10-PCS; 2018-11-04 16:00)
PROC: 0DBM8ZX Excision of Descending Colon, Via Natural or Artificial Opening Endoscopic, Diagnostic (ICD-10-PCS; 2018-11-04 16:00)
DX: K92.2 Gastrointestinal hemorrhage, unspecified (principal); D68.9 Coagulation defect, unspecified; E87.1 Hypo-osmolality and hyponatremia; N39.0 Urinary tract infection, site not specified; D50.9 Iron deficiency anemia, unspecified; I48.0 Paroxysmal atrial fibrillation; Z79.01 Long term (current) use of anticoagulants; N40.0 Benign prostatic hyperplasia without lower urinary tract symptoms; K82.8 Other specified diseases of gallbladder; K20.9 Esophagitis, unspecified; K44.9 Diaphragmatic hernia without obstruction or gangrene; K29.70 Gastritis, unspecified, without bleeding; K57.90 Diverticulosis of intestine, part unspecified, without perforation or abscess without bleeding; K63.5 Polyp of colon; N28.1 Cyst of kidney, acquired; Z95.810 Presence of automatic (implantable) cardiac defibrillator; N42.89 Other specified disorders of prostate
CPT/HCPCS: 36415; 43239; 45384; 45385; 71045; 74178; 80048; 80053; 81001; 82270; 82550; 82553; 82607; 82728; 82746; 83540; 83880; 84466; 84484; 85025; 85610; 85730; 86850; 86900; 86920; 87086; 88305; 88312; 93005; 99284; G0378; J1756; J1980; J2001; J2250; J3420; J7050; P9016; P9017; Q9967

== ENCOUNTER 2018-11-10 11:19 | Emergency (ER) | payer MEDICARE ==
[~2018-11-10] VITALS: Ht 170.2 cm; Wt 82.1 kg
--- OUTSIDE RECORDS SUMMARY | 2018-11-10 11:22 | XMS REPORT | Clinical Summary ---
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); Abnormal [...] Ronal Earl MD Ep loop recorder insertion [09781 (CPT)] 03/18/2018 Surgery Procedural Cardiology Agatha Pop MD 03/14/2018 Anesthesia Radiology Event Agatha Loera MD Patel, Amitkumar Natvarlal, MD 03/14/2018 Hospital Neurology - Encounter 03/19/2018 Wan Chavez MD Acute ischemic left MCA stroke (Primary Dx) 03/14/2018 Emergency Emergency Medicine N/A 03/14/2018 Intake Access after 11/09/2017 Social History Date Tobacco Use Types Packs/Day [...] Taken Vital Sign Reading 07/18/2018 10:02 AM MANAGER MBA Blood Pressure 143/79 07/18/2018 10:02 AM MANAGER MBA Pulse 83 05/12/2018 7:27 AM CDT Temperature 36.8 C (98.2 F) 05/12/2018 7:27 AM CDT Respiratory Rate 16 05/12/2018 8:30 AM CDT Oxygen Saturation 98% - Inhaled Oxygen - Concentration 07/18/2018 10:02 AM MANAGER MBA Weight 82.6 kg (182 lb) 07/18/2018 10:02 AM MANAGER MBA Height 170.2 cm (5' 7") 07/18/2018 10:02 AM MANAGER MBA Body Mass Index 28.51 Plan of Treatment Care Team Description Date Type Specialty Volpi, Agatha Michaels MD [address] [address] 01/23/2019 Office Visit Neurology Health Maintenance Due Date Last Done Comments SHINGLES VACCINES (#1) 1989 65+ PNEUMOCOCCAL VACCINE 2004 (1 of 2 - PCV13) PNEUMOCOCCAL 2004 POLYSACCHARIDE VACCINE AGE 65 AND OVER INFLUENZA VACCINE 04/06/2018 Implants Device Identifier Shelf Expiration Date Model / Serial / Lot Implanted Type Area Manufactur er [id number] / / Monitor Cardiac Implant Confirm Rx Cardiac N/A: N/A ST MAKI - [id number] Pacemakers MEDICAL Implanted: 03/18/2018 (Quantity not and INC on file) Related Products 01/03/2019 [id number] / / [id number] Device Vasclr Clsr Vasoactive Cardiovasc N/A: N/A Intstnl Peptd 6fr Angio-Seal - ular [id number] Implants Implanted: 03/14/2018 (Quantity not on file) [id number] / / Catheter Bln Otw 2.5mm 12mm Cardiovasc N/A: N/A [employer] Sprinter - [id number] ular [place] - Implanted: 05/11/2018 (Quantity not Implants VASCULAR on file) [id number] / / Catheter 6fr X 13cm Antonia Plus Central N/A: N/A MICRO Intermediate - [id number] Venous VENTION Implanted: 03/14/2018 (Quantity not Catheters on file) [id number] / / Stent System 3.0 X 18mm Resolute Coronary N/A: N/A [employer] Salvador Otw Coronary - [id number] Stents [place] - Implanted: 05/11/2018 (Quantity not CARDIAC on file) RYHTYM MGMT [id number] / / Stent System 2.75 X 08mm Resolute Coronary N/A: N/A [employer] Hawi Otw Coronary - [id number] Stents [place] - Implanted: 05/11/2018 (Quantity not CARDIAC on file) RYHTYM MGMT [id number] / / Catheter Thrmbtmy Neuron Max 088 Surgical N/A: N/A PENUMBRA Str 6fr 80x4cm - [id number] Implants; INC Implanted: 03/14/2018 (Quantity not Expanders; on file) Extenders; Surgical Wires 02/04/2020 [id number] / / [id number] System Clsr Sut Meditd 6fr Perclose Surgical N/A: N/A HONG Proglide - [id number] Implants; VASCULAR Implanted: 05/11/2018 (Quantity not Expanders; DEVICES on file) Extenders; Surgical Wires 02/04/2020 [id number] / / [id number] System Clsr Sut Meditd 6fr Perclose Surgical N/A: N/A HONG Proglide - [id number] Implants; VASCULAR Implanted: 05/11/2018 (Quantity not Expanders; DEVICES on file) Extenders; Surgical Wires Procedures Comments Procedure Name Priority Date/Time Associated Diagnosis LIPID PANEL Routine 07/18/2018 Hyperlipidemia LDL goal 10:43 AM MANAGER MBA <70 HC COMPLETE BLD COUNT Routine 05/12/2018 [...] CDT PARTIAL THROMBOPLASTIN STAT 05/10/2018 Atherosclerosis of alturas TIME (PTT) 9:23 AM CDT coronary artery with angina pectoris, unspecified whether alturas or transplanted heart Cerebral infarction due to thrombosis of left middle cerebral artery PROTHROMBIN TIME WITH INR STAT 05/10/2018 Atherosclerosis of alturas 9:23 AM CDT coronary artery with angina pectoris, unspecified whether alturas or transplanted heart Cerebral infarction due to thrombosis of left middle cerebral artery CBC HEMOGRAM STAT 05/10/2018 Atherosclerosis of alturas 9:23 AM CDT coronary artery with angina pectoris, unspecified whether alturas or transplanted heart Cerebral infarction due to thrombosis of left middle cerebral artery BASIC METABOLIC PANEL STAT 05/10/2018 Atherosclerosis of alturas 9:23 AM CDT coronary artery with angina pectoris, unspecified whether alturas or transplanted heart Cerebral infarction due to [...] MMODE SPECTRAL 10:05 AM CDT COLOR DOPPLER (35818) POC GLUCOSE Routine 03/15/2018 7:40 AM CDT [...] PRELIMINARY Routine 03/14/2018 INTERPRETATION 5:[address] CRITICAL CARE, E/M Routine 03/14/2018 30-74 MINUTES 5:11 PM CDT PROTHROMBIN TIME WITH INR STAT 03/14/2018 5:10 PM CDT ZZESTIMATED GFR STAT 03/14/2018 5:10 PM CDT TROPONIN STAT 03/14/2018 5:10 PM CDT COMPREHENSIVE METABOLIC STAT 03/14/2018 PANEL 5:10 PM CDT PARTIAL THROMBOPLASTIN STAT 03/14/2018 TIME (PTT) 5:10 PM CDT HC COMPLETE BLD COUNT STAT 03/14/2018 W/AUTO DIFF 5:10 PM CDT after 11/09/2017 Results * Lipid panel (07/18/2018 10:43 AM MANAGER MBA) Only the most recent of 3 results within the time period is included. Cholesterol 122 <200 mg/dL [facility] Triglycerides 197 (H) <150 mg/dL [facility] HDL cholesterol 38 (L) >40 mg/dL [facility] LDL cholesterol 62Comment: Result obtained by <100 mg/dL [facility] direct LDL measurement [facility] Lipid panel SeeBelow [facility] interpretation Comment: HOSPITAL Total Cholesterol (mg/dL) <200 [...] specimen Performing Organization Address City/State/Zipcode Phone Number [facility] [place] [address] PATHOLOGY AND GENOMIC MEDICINE [address] * CBC with platelet and differential (05/12/2018 4:48 AM CDT) Only the most recent of 3 results within the time period is included. WBC 6.04 4.50 - 11.00 k/uL [facility] DEPARTMENT OF PATHOLOGY AND GENOMIC MEDICINE RBC 4.15 (L) 4.40 - 6.00 m/uL [facility] DEPARTMENT OF PATHOLOGY AND GENOMIC MEDICINE HGB 12.4 (L) 14.0 - 18.0 g/dL [facility] DEPARTMENT OF PATHOLOGY AND GENOMIC MEDICINE HCT 37.8 (L) 41.0 - 51.0 % [facility] DEPARTMENT OF PATHOLOGY AND GENOMIC MEDICINE MCV 91.1 82.0 - 100.0 fL [facility] DEPARTMENT OF PATHOLOGY AND GENOMIC MEDICINE MCH 29.9 27.0 - 34.0 pg [facility] DEPARTMENT OF PATHOLOGY AND GENOMIC MEDICINE MCHC 32.8 31.0 - 37.0 g/dL [facility] DEPARTMENT OF PATHOLOGY AND GENOMIC MEDICINE RDW - SD 45.8 37.0 - 55.0 fL [facility] DEPARTMENT OF PATHOLOGY AND GENOMIC MEDICINE MPV 10.0 8.8 - 13.2 fL [facility] DEPARTMENT OF PATHOLOGY AND GENOMIC MEDICINE Platelet count 176 150 - 400 k/uL [facility] DEPARTMENT OF PATHOLOGY AND GENOMIC MEDICINE Nucleated RBC 0.00 /100 WBC [facility] DEPARTMENT OF PATHOLOGY AND GENOMIC MEDICINE Neutrophils 62.5 39.0 - 69.0 % [facility] DEPARTMENT OF PATHOLOGY AND GENOMIC MEDICINE Lymphocytes 25.2 25.0 - 45.0 % [facility] DEPARTMENT OF PATHOLOGY AND GENOMIC MEDICINE Monocytes 9.3 0.0 - 10.0 % [facility] DEPARTMENT OF PATHOLOGY AND GENOMIC MEDICINE Eosinophils 2.2 0.0 - 5.0 % [facility] DEPARTMENT OF PATHOLOGY AND GENOMIC MEDICINE Basophils 0.3 0.0 - 1.0 % [facility] DEPARTMENT OF PATHOLOGY AND GENOMIC MEDICINE Immature granulocytes 0.5Comment: "Immature 0.0 - 1.0 % [facility] DEPARTMENT OF granulocytes" (promyelocytes, PATHOLOGY AND myelocytes, metamyelocytes) GENOMIC MEDICINE Specimen Blood Performing Organization Address City/[facility] Phone Number [facility] DEPARTMENT OF [address] [place] [address] PATHOLOGY AND GENOMIC MEDICINE * ECG Pre/Post Op (05/12/2018 4:15 AM CDT) Ventricular rate 56 [facility] Atrial rate 56 [facility] CT interval 152 [facility] MUSE QRSD interval 112 [facility] MUSE QT interval 422 [facility] QTC interval 407 [facility] QRS axis 1 -47 [facility] MUSE T wave axis -3 [facility] MUSE EKG impression Sinus bradycardia-Incomplete [facility] M[facility] right bundle branch block-Left anterior fascicular block-Minimal voltage criteria for LVH, may be normal variant-Septal infarct (cited on or before 14-MAR-2018)-Abnormal ECG-In automated comparison with ECG of 11-MAY-2018 11:57,-No significant change was found- Performing Organization Address City/State/Zipcode Phone Number [facility] MUSE [address] [place], [place] [id number] * Estimated GFR (05/12/2018 4:00 AM CDT) Only the most recent of 5 results within the time period is included. GFR Non Af Amer 65 mL/min/1.73 m2 [facility] DEPARTMENT OF PATHOLOGY AND GENOMIC MEDICINE GFR Af Amer 78 mL/min/1.73 m2 [facility] DEPARTMENT OF Comment: PATHOLOGY AND [...] Americans. Specimen Plasma specimen Performing Organization Address [facility] [place] [place] [address] PATHOLOGY AND [employer] MEDICINE * Basic metabolic panel (05/12/2018 4:00 AM CDT) Only the most recent of 4 results within the time period is included. Sodium 139 135 - 148 mEq/L [facility] DEPARTMENT OF PATHOLOGY AND GENOMIC MEDICINE Potassium 4.1 3.5 - 5.0 mEq/L [facility] DEPARTMENT OF PATHOLOGY AND GENOMIC MEDICINE Chloride 105 98 - 112 mEq/L [facility] DEPARTMENT OF PATHOLOGY AND GENOMIC MEDICINE CO2 25 24 - 31 mEq/L [facility] DEPARTMENT OF PATHOLOGY AND GENOMIC MEDICINE Anion gap 9@ANIO 7 - 15 mEq/L [facility] DEPARTMENT OF PATHOLOGY AND GENOMIC MEDICINE BUN 16 8 - 23 mg/dL [facility] DEPARTMENT OF PATHOLOGY AND GENOMIC MEDICINE Creatinine 1.1 0.7 - 1.2 mg/dL [facility] DEPARTMENT OF PATHOLOGY AND GENOMIC MEDICINE Glucose 130 (H) 65 - 99 mg/dL [facility] DEPARTMENT OF PATHOLOGY AND GENOMIC MEDICINE Calcium 8.9 8.8 - 10.2 mg/dL [facility] DEPARTMENT OF PATHOLOGY AND GENOMIC MEDICINE Specimen Plasma specimen Performing Organization Address [facility] [place] [place] [address] PATHOLOGY AND GENOMIC MEDICINE * ECG 12 lead (05/11/2018 11:57 AM CDT) Only the most recent of 3 results within the time period is included. Ventricular rate 50 [facility] Atrial rate [address] [facility] [address] interval 172 [facility] QRSD interval 118 [...] leads- Performing Organization Address City/State/Zipcode Phone Number [facility] MUSE [address] [place] [address] * Cv irrigation laborer procedure (05/11/2018 10:06 AM CDT) Narrative Performed At [facility] Successful PCI to mid LAD with 3.0x18 mm Resolute Hawi BERNA followed by 2.75x8 mm Resolute Hawi BERNA to distal edge for small edge dissection See dictated op report for further details TITLE OF OPERATION: Percutaneous coronary intervention with medicated stent to the proximal and mid left anterior descending coronary artery. SURGEON: Dr. Arpit Blanchard. HOG SAWYER: Dr. Agatha Beckham. 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 2.Abnormal cardiac functional study. 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 2.Abnormal cardiac functional study. ANESTHESIA: Conscious sedation with Versed and fentanyl. ESTIMATED BLOOD LOSS: 20 mL. COMPLICATIONS: None. OPERATIVE COURSE: After informed consent was obtained from the patient and with appropriate time-out procedures called, the patient was originally taken to the cardiac catheterization laboratory by my partner, Dr. Ronal Earl.Dr. Earl performed diagnostic coronary angiography using 5-Ecuadorean system.Once accomplished, I was called to the irrigation laborer to assess for the possibility of [...] patient previously, we proceeded with intervention. The 5-Ecuadorean system was exchanged for a 6-Ecuadorean sheath.The patient received bivalirudin with subsequent ACT greater than 230 seconds prior to wire passage. The guiding catheter chosen was a 6-Ecuadorean XB LAD 3.5-sidehole variety. Preprocedural angiograms were taken in two views.A 0.014 extra support exchange length wire was then inserted across the stenosis and the lesion, predilated with a 2.5 x 12 mm balloon.The lesion was then successfully stented with a 3.0 x 18 mm Resolute Hawi medicated stent.The stent was properly placed, but postprocedural angiogram suggested a nonocclusive but nonetheless threatening dissection eccentrically in the superior aspect of the vessel at the distal end of the stenosis.Thus, a second stent, specifically a 2.75 x 8 mm Resolute Hawi stent was placed at the distal end [...] Performing Organization Address City/State/Zipcode Phone Number [facility] [address] [place] [address] * Cv irrigation laborer procedure (05/11/2018 10:06 AM CDT) Narrative Performed At [facility] LM: normal LAD: mid 95% stenosis, first diagonal proximal 50% Ramus: no significant stenosis LCX: no significant stenosis RCA: mild plaque Performing Organization Address [facility] Cent[facility] Phone Number [facility] [address] [place] [address] * Activated clotting time (05/11/2018 9:08 AM CDT) Only the most recent of 2 results within the time period is included. Activated clotting time 426 (H) 96 - 152 sec [facility] DEPARTMENT OF Comment: PATHOLOGY AND Meter ID: [id number] GENOMIC MEDICINE Sales And Marketing Assistant: Norberto Carlson Performing Organization Address [facility] Cent[facility] Phone Number [facility] DEPARTMENT OF [address] [place] [address] PATHOLOGY AND [facility] MEDICINE * Partial thromboplastin time, activated (05/10/2018 9:23 AM CDT) Only the most recent of 2 results within the time period is included. PTT 35.3 23.0 - 36.0 sec [facility] DEPARTMENT OF Comment: PATHOLOGY AND PTT therapeutic range for [facility] unfractionated heparin is 61.0-112.0 seconds which corresponds to Anti-Xa 0.3-0.7 U/ml. Specimen Blood Performing Organization Address [facility] Phone Number [address] [place] [address] PATHOLOGY AND [employer] MEDICINE * Prothrombin time with INR (05/10/2018 9:23 AM CDT) Only the most recent of 2 results within the time period is included. Prothrombin time 17.7 (H) 12.0 - 15.0 sec [facility] DEPARTMENT OF PATHOLOGY AND [employer] MEDICINE INR 1.4 [facility] DEPARTMENT OF Comment: PATHOLOGY AND The International Normalized [facility] MEDICINE Ratio (INR) is a therapeutic monitoring tool for patients who are stable on oral anticoagulant therapy. An INR of 2.0-3.0 is suggested for deep vein thrombosis/pulmonary embolism. Specimen Blood Performing Organization Address [facility] Phone Number [address] [place] [address] PATHOLOGY AND [employer] MEDICINE * CBC hemogram (05/10/2018 9:23 AM CDT) Only the most recent of 3 results within the time period is included. WBC 5.74 4.50 - 11.00 k/uL [facility] DEPARTMENT OF PATHOLOGY AND [employer] MEDICINE RBC 4.65 4.40 - 6.00 m/uL [facility] DEPARTMENT OF PATHOLOGY AND GENOMIC MEDICINE HGB 13.7 (L) 14.0 - 18.0 g/dL [facility] DEPARTMENT OF PATHOLOGY AND GENOMIC MEDICINE HCT 41.2 41.0 - 51.0 % [facility] DEPARTMENT OF PATHOLOGY AND GENOMIC MEDICINE MCV 88.6 82.0 - 100.0 fL [facility] PATHOLOGY AND GENOMIC MEDICINE MCH 29.5 27.0 - 34.0 pg [facility] DEPARTMENT OF PATHOLOGY AND GENOMIC MEDICINE MCHC 33.3 31.0 - 37.0 g/dL [facility] OF PATHOLOGY AND GENOMIC MEDICINE RDW - SD 43.8 37.0 - 55.0 fL [facility] PATHOLOGY AND GENOMIC MEDICINE MPV 9.8 8.8 - 13.2 fL [facility] PATHOLOGY AND GENOMIC MEDICINE Platelet count 202 150 - 400 k/uL [facility] PATHOLOGY AND GENOMIC MEDICINE Nucleated RBC 0.00 /100 WBC [facility] DEPARTMENT PATHOLOGY [facility] GENOMIC MEDICINE Specimen Blood Performing Organization Address City/[facility] Cent[facility] Phone Number [address] [place] [address] PATHOLOGY AND GENOMIC MEDICINE * Cv electrophysiology procedure (03/18/2018 11:39 AM CDT) Narrative Performed At [facility] Successful loop recorder implant. Performing Organization Address [facility] Cent[facility]ode Phone Number [facility] [address] [place] [address] * Cardiac mri stroke eval w contrast (03/17/2018 9:20 AM CDT) Narrative Performed At [facility] Religious CMR Report Name:DES CHONG :1940 Scan Date: [...] LV mass/thrombus. VIABILITY: There is limited transmural [place] of the proximal to mid LAD territory. [...] Anteroseptal | Severe Hypo| 26-50% || Sub-Endo [place]| | Mid Inferoseptal | Severe Hypo| 51-75% || Sub-Endo [place]| | Mid Inferior | Normal/Hyper | None ||| | Mid Inferolateral| Normal/Hyper | None ||| | Mid Anterolateral| Normal/Hyper | None ||| | Apical Anterior| Normal/Hyper | 51-75% || Sub-Endo [place]| | Apical Septal| Akinetic | 51-75% || Sub-Endo [place]| | Apical Inferior| Akinetic | 26-50% ||| | Apical Lateral | Normal/Hyper | None ||| | [place] | Akinetic | 51-75% || Sub-Endo [place]| + + + + +----- + | [...] INFO GENERAL --------- CONTRAST AGENT TYPE:Dotarem LOT NUMBER:[id number] EXPIRATION DATE:2019-03-05 00:00:00 VOLUME ADMINISTERED:25 ml DOSAGE [...] REFERRING PHYSICIAN:WAN CHAVEZ TECHNOLOGIST:Mega Andujar RT[ , ]eDe Hoskins BILLING Patient Account [id number] CPT Codes 26711, 09011, 83456 ICD10 Codes I63.9, I25.5 Report generated by [employer], a product of [employer] Procedure Note Interface, Radiology Results In - 03/17/2018 3:38 PM CDT [facility] CMR Report Name: DES CHONG : 1940 [...] LV mass/thrombus. VIABILITY: There is limited transmural [place] of the proximal to mid LAD territory. [...] Hypo | 26-50% | | Sub- Endo [place] | | Mid Inferoseptal | Severe Hypo | 51-75% | | Sub- Endo [place] | | Mid Inferior | Normal/Hyper | None | | | | Mid Inferolateral | Normal/Hyper | None | | | | Mid Anterolateral | Normal/Hyper | None | | | | Apical Anterior | Normal/Hyper | 51-75% | | Sub- Endo [place] | | Apical Septal | Akinetic | 51-75% | | Sub- Endo [place] | | Apical Inferior | Akinetic | 26-50% | | | | Apical Lateral | Normal/Hyper | None | | | | [place] | Akinetic | 51-75% | | Sub- Endo [place] | + + + + + + [...] GENERAL CONTRAST AGENT TYPE: Dotarem LOT NUMBER: [id number] EXPIRATION DATE: 2019-03-05 00:00:00 VOLUME ADMINISTERED: 25 [...] RT[ , ]Dee Hoskins BILLING Patient Account [id number] CPT Codes 11674, 68948, 04526 ICD10 Codes I63.9, I25.5 Report generated by [employer], a product of [employer] Performing Organization Address City/State/Zipcode Phone Number [facility] [address] [place] [address] * POC glucose (03/16/2018 11:27 AM CDT) Only the most recent of 12 results within the time period is included. POC glucose 154 (H) 65 - 99 mg/dL [facility] DEPARTMENT OF Comment: PATHOLOGY AND [facility] Notified RN GENOMIC MEDICINE Meter ID: [id number] Sales And Marketing Assistant: Sujit Sherman Performing Organization Address [facility] Cent[facility]ode Phone Number [facility] [place] [place] [address] PATHOLOGY AND GENOMIC MEDICINE * Magnesium level (03/16/2018 2:36 AM CDT) Magnesium 2.1 1.6 - 2.4 mg/dL [facility] DEPARTMENT OF PATHOLOGY AND GENOMIC MEDICINE Specimen Plasma specimen Performing Organization Address [facility] [place] [address] PATHOLOGY AND GENOMIC MEDICINE * Urine drugs of abuse screen (03/15/2018 11:18 PM CDT) Only the most recent of 2 results within the time period is included. Amphetamine screen, urine Negative [facility] DEPARTMENT OF PATHOLOGY AND GENOMIC MEDICINE Barbiturate screen, urine Negative [facility] DEPARTMENT OF PATHOLOGY AND GENOMIC MEDICINE Benzodiazepine screen, Negative [facility] DEPARTMENT OF urine PATHOLOGY AND GENOMIC MEDICINE Cannabinoid screen, urine Negative [facility] DEPARTMENT OF PATHOLOGY AND GENOMIC MEDICINE Cocaine screen, urine Negative [facility] DEPARTMENT OF PATHOLOGY AND GENOMIC MEDICINE Methadone metabolite Negative [facility] DEPARTMENT OF (EDDP), urine PATHOLOGY AND GENOMIC MEDICINE Opiates screen, urine Negative [facility] DEPARTMENT OF PATHOLOGY AND GENOMIC MEDICINE Oxycodone screen, urine Negative [facility] DEPARTMENT OF PATHOLOGY AND GENOMIC MEDICINE Phencyclidine screen, Negative [facility] DEPARTMENT OF urine PATHOLOGY AND GENOMIC MEDICINE Tricyclic screen, urine Negative [facility] DEPARTMENT OF Comment: PATHOLOGY AND Drug screen minimum [facility] MEDICINE concentration of detectability Amphetamines 1000 ng/mL [...] purposes only. Specimen Urine Performing Organization Address [facility] Phone Number [facility] [place] [address] PATHOLOGY AND GENOMIC MEDICINE * Urinalysis screen and microscopy, with reflex to culture (03/15/2018 10:30 PM CDT) Specimen site Clean catch [facility] DEPARTMENT OF PATHOLOGY AND GENOMIC MEDICINE Color, UA Straw [facility] DEPARTMENT OF PATHOLOGY AND GENOMIC MEDICINE Appearance, UA Clear [facility] DEPARTMENT OF PATHOLOGY AND GENOMIC MEDICINE Specific gravity, UA 1.018 1.001 - 1.035 [facility] DEPARTMENT OF PATHOLOGY AND GENOMIC MEDICINE pH, UA 6.0 5.0 - 8.5 [facility] DEPARTMENT OF PATHOLOGY AND GENOMIC MEDICINE Protein, UA Negative Negative [facility] DEPARTMENT OF PATHOLOGY AND GENOMIC MEDICINE Glucose, UA Negative Negative [facility] DEPARTMENT OF PATHOLOGY AND GENOMIC MEDICINE Ketones, UA Negative Negative [facility] DEPARTMENT OF PATHOLOGY AND GENOMIC MEDICINE Bilirubin, UA Negative Negative [facility] DEPARTMENT OF PATHOLOGY AND GENOMIC MEDICINE Blood, UA Negative Negative [facility] DEPARTMENT OF PATHOLOGY AND GENOMIC MEDICINE Nitrite, UA Negative Negative [facility] DEPARTMENT OF PATHOLOGY AND GENOMIC MEDICINE Urobilinogen, UA <2.0 <2.0 [facility] DEPARTMENT OF PATHOLOGY AND GENOMIC MEDICINE Leukocyte esterase, UA Negative Negative [facility] DEPARTMENT OF PATHOLOGY AND GENOMIC MEDICINE Epithelial cells, UA <1 /HPF [facility] DEPARTMENT OF PATHOLOGY AND GENOMIC MEDICINE WBC, UA None seen 0 - 1 /HPF [facility] DEPARTMENT OF PATHOLOGY AND GENOMIC MEDICINE RBC, UA 1 0 - 5 /HPF [facility] DEPARTMENT OF PATHOLOGY AND GENOMIC MEDICINE Bacteria, UA None seen None seen [facility] DEPARTMENT OF PATHOLOGY AND GENOMIC MEDICINE Yeast, UA None seen [facility] DEPARTMENT OF PATHOLOGY AND GENOMIC MEDICINE Yeast with pseudohyphae, None seen [facility] DEPARTMENT OF UA PATHOLOGY AND GENOMIC MEDICINE Specimen Urine Performing Organization Address City/[facility] Cent[facility]ode Phone Number [place] [phone] PATHOLOGY AND GENOMIC MEDICINE * Urine culture (03/15/2018 10:30 PM CDT) Urine culture SEE COMMENTComment: [facility] DEPARTMENT OF Bacteriuria screen negative. PATHOLOGY AND GENOMIC MEDICINE Performing Organization Address City/[facility]/Zipcode Phone Number [facility] [address] [place], [place] [id number] PATHOLOGY AND GENOMIC MEDICINE * CT Stroke Brain Wo Contrast (03/15/2018 6:33 PM CDT) Only the most recent of 2 results within the time period is included. Narrative Performed At EXAMINATION:CT STROKE BRAIN WO CONTRAST [facility] CLINICAL HISTORY:[id number] HR POST TPA IMAGING COMPARISON:MRI of the brain dated March 15, [address] images were acquired using low-dose technique with automated exposure control. IMPRESSION: Evolving recent ischemia in the left MCA territory in the left insula and left basal ganglia with no interval progression and no associated mass effect or hemorrhagic conversion. [facility][id number] Procedure Note Interface, Radiology Results - 03/15/2018 [...] no associated mass effect or hemorrhagic conversion. [facility]-[id number] Performing Organization Address City/State/Zipcode Phone Number [facility] [address] [place] [address] * MRI Brain Wo Contrast (03/15/2018 6:20 [...] without acute hemorrhage or significant mass effects. [facility]-[id number] Procedure Note Interface, Radiology Results - 03/15/2018 [...] without acute hemorrhage or significant mass effects. [facility]-[id number] Performing Organization Address City/[facility]/[place] [address] * Homocystine, plasma (03/15/2018 2:00 PM CDT) Homocysteine 10.9 0.0 - 15.0 umol/L [facility] DEPARTMENT OF Comment: PATHOLOGY AND The risk for coronary vascular GENOMIC MEDICINE disease increases progressively with homocysteine concentration.A 3.4 times greater risk is associated with a homocysteine concentration of greater than 15.8 umol/L as compared to a concentration below 14.1 umol/L. Specimen Plasma specimen Performing Organization Address [facility] [place]erc[place] [address] PATHOLOGY AND GENOMIC MEDICINE * Sedimentation rate (03/15/2018 2:00 PM CDT) Sedimentation rate 12 (H) 0 - 10 mm/hr [facility] DEPARTMENT OF PATHOLOGY AND GENOMIC MEDICINE Specimen Blood Performing Organization Address [facility] [place] [address] PATHOLOGY AND GENOMIC MEDICINE * Rheumatoid factor (03/15/2018 2:00 PM CDT) Rheumatoid factor <10 0 - 13 IU/mL [facility] DEPARTMENT OF PATHOLOGY AND GENOMIC MEDICINE Specimen Plasma specimen Performing Organization Address [facility] [place] [place] [address] PATHOLOGY AND GENOMIC MEDICINE * C-reactive protein (03/15/2018 2:00 PM CDT) CRP 0.39 0.00 - 0.50 mg/dL [facility] DEPARTMENT OF PATHOLOGY AND GENOMIC MEDICINE Specimen Plasma specimen Performing Organization Address [facility] [place] [address] PATHOLOGY AND [facility] MEDICINE * Thyroid stimulating hormone (03/15/2018 2:00 PM CDT) TSH 1.75 0.27 - 4.20 uIU/mL [facility] DEPARTMENT OF PATHOLOGY AND GENOMIC MEDICINE Specimen Plasma specimen Performing Organization Address City/[facility]/[place] [address] PATHOLOGY AND GENOMIC MEDICINE * T4, free (03/15/2018 2:00 PM CDT) T4, free 1.1 0.9 - 1.7 ng/dL [facility] DEPARTMENT OF PATHOLOGY AND GENOMIC MEDICINE Specimen Plasma specimen Performing Organization Address City/[facility] [place] [address] PATHOLOGY AND GENOMIC MEDICINE * Hemoglobin A1c (03/15/2018 2:00 PM CDT) Hemoglobin A1C 6.9 (H) 4.0 - 5.6 % [facility] DEPARTMENT OF Comment: PATHOLOGY AND HbA1c cutoffs for diagnosing [facility] MEDIC[facility] diabetes: 4.0% - 5.6%=normal 5.7% - 6.4%=increased risk for diabetes (prediabetes) >=6.5%=diabetes Goals for glycemic control (ADA 2016) < 7.0%Target for non adults with diabetes. More or less stringent targets may be appropriate for individual patients. <7.5% Target for Children and adolescents with type 1 diabetes. Specimen Blood Performing Organization Address City/[facility]/Zipcode Phone Number [facility] [place] [address] PATHOLOGY AND GENOMIC MEDICINE * Folate level (03/15/2018 2:00 PM CDT) Folate 16.9 4.8 - 24.2 ng/mL [facility] DEPARTMENT OF PATHOLOGY AND GENOMIC MEDICINE Specimen Serum Performing Organization Address [facility] [place]erc[place] [address] PATHOLOGY AND GENOMIC MEDICINE * Vitamin B12 level (03/15/2018 2:00 PM CDT) Vitamin B12 493 211 - 946 pg/mL [facility] DEPARTMENT OF Comment: PATHOLOGY AND Significant overlap exists GENOMIC MEDICINE between normal and deficiency states. However, most patients with deficiencies will have Serum B12 <200 pg/mL. Specimen Serum Performing Organization Address [facility]/[place] [address] PATHOLOGY AND GENOMIC MEDICINE * Echocardiogram complete w contrast and 3D if needed (03/15/2018 10:05 AM CDT) Narrative [facility]formed At [facility] Report [address] [place] [address] [address] [address] Pat.Name:Yanet CHONG.ID:[id number] .Date: 03/15/2018 Refer.:AGATHA LOERA MD Exam Time: 8:31:00 AMStudy Type:Routine Echo Height:69inWeight:187lb BSA: 2.01 m2 DOBAge:1940,77Y Sex: MALEBP:118/65 HR:46 bpmSonogrphr: CARMITA Alejo Pat. Stat.:Inpatient Room:[place] [address] Study Status:Final Echo Event ID:[id number] Order ID:[id number] Reason for Study:Stroke, suspected cardiac etiology Procedures:2D [...] PA systolic pressure. MEASUREMENTS: 2D Parasternal Long [place] LVOT 2.1 cmLA Ds4.6 cm LVIDd5.6 cmIndex2.8 cm/m Ao An1.9 cm LVIDs2.9 cmAo Rtd 3.3 cm Index1.7 cm/m LV%fs 48.7 % LV Xepz140.7 g(122-174) IVSd 0.8 cmLVM Index 88.4 g/m2 LVPWd0.9 cmRWT0.3 LA Sng Plane LA Area 23.4 cm2(8.8-23.4) LA Vol81.2 ml Index40.4 ml/m LA LngAx 5.6 cm DOPPLER LVOT Stroke Vol LVOT 2.1 cmLVOT CO3.7 l/min LVOT TVI22.2 cmLVOT CI1.8 l/m/m2 LVOT Tm342 vlsjMT33 bpm LVOT SV 76.8 ml Signed 03/15/2018 11:07 AM Eduardo Osorio MD Procedure Note Interface, Radiology Results In - 03/15/2018 11:08 AM CDT Echocardiography Report [address] [place] [address] Pat.Name: DES CHONG Pat.ID: [id number] .Date: 03/15/2018 Refer.MD: AGATHA LOERA MD Exam Time: 8:31:00 AM Study Type:Routine Echo Height: 69in Weight: 187lb BSA: 2.01 m2 Age: 11 1940,77Y Sex: MALE BP: 118/65 HR: 46 bpm Sonogrphr: CARMITA Alejo Pat. Stat.:Inpatient Room: [place] [address] Study Status:Final Echo Event ID:[id number] Order ID: [id number] Reason for Study:Stroke, suspected cardiac etiology Procedures:2D [...] PA systolic pressure. MEASUREMENTS: 2D Parasternal [place] LVOT 2.1 cm LA Ds 4.6 cm [...] AM Eduardo Osorio MD Performing Organization Address City/[facility]/Zipcode Phone Number [facility] [address] [place] [address] * Type and screen (03/15/2018 1:12 AM CDT) ABO grouping A [facility] DEPARTMENT OF PATHOLOGY AND GENOMIC MEDICINE Rh type POS [facility] DEPARTMENT OF PATHOLOGY AND GENOMIC MEDICINE Antibody screen (gel) NEG [facility] DEPARTMENT OF PATHOLOGY AND GENOMIC MEDICINE Specimen Blood Performing Organization Address City/[facility]ercode Phone Number [facility] DEPARTMENT OF [address] [place] [id number] PATHOLOGY AND GENOMIC MEDICINE * IR 3D Recon Slices Snapshots RDMPS (03/14/2018 9:21 PM CDT) Narrative Performed At Non-Reportable/No report needed. [facility] Performing Organization Address City/[facility] Centercode Phone Number [facility] [address] [place] [address] * IR Perq Art M-Thrombect NFS (03/14/2018 [...] NFS This exam was performed in [facility]. Fluoro time: 15.6 minutes Dose: 2791 mGy IMPRESSION: A complete separate report will be issued by the performing physician. [id number] Performing Organization Address [facility] Centercome Phone Number [facility] [address] [place] [address] * XR Chest 1 Vw Portable (03/14/2018 6:24 PM CDT) Narrative Performed At EXAMINATION:XR CHEST 1 VW PORTABLE [facility] CLINICAL HISTORY:Chest Pain COMPARISON:None IMPRESSION: Hypoinflation Minimal patchy bibasilar atelectasis Tiny right costophrenic angle effusion. Cardiomegaly with vascular ectasia. No infiltrate or congestion. No pneumothorax Single view chest [id number] Procedure Note Interface, Radiology Results Incoming - 03/14/2018 6:32 PM CDT EXAMINATION: XR CHEST 1 VW PORTABLE CLINICAL HISTORY: Chest Pain COMPARISON: None IMPRESSION: Hypoinflation Minimal patchy bibasilar atelectasis Tiny right costophrenic angle effusion. Cardiomegaly with vascular ectasia. No infiltrate or congestion. No pneumothorax Single view chest [id number] Performing Organization Address [facility] Phone Number [facility] [address] [place] [address] * CTA Neck W Wo Contrast (03/14/2018 6:08 PM CDT) Narrative Performed At EXAMINATION:CT ANGIOGRAM NECK W WO CONTRAST [facility] CLINICAL HISTORY:STROKE COMPARISON:None. TECHNIQUE: Neck CTA with [...] 6:16 PM who verbal[address] understanding. [facility]-[id number] Procedure Note Hm Interface, Radiology Results Incoming [...] 6:16 PM who verbal[address] understanding. [facility]-[id number] Performing Organization Address City/State/Zipcode Phone Number [facility] [address] [place] [address] * CTA Head W Wo Contrast (03/14/2018 [...] M2 and M3 branches likely via collaterals. [id number] Procedure Note Interface, Radiology Results Incoming - [...] M2 and M3 branches likely via collaterals. [id number] Performing Organization Address City/State/Zipcode Phone Number [facility] [address] [place] [address] * ECG ED Preliminary Interpretation - NOT AN ORDER (03/14/2018 5:11 PM CDT) Narrative Performed At Wan Parikh MD 03/14/2018 10:16 PM ECG ED Preliminary Interpretation - Not an Order Performed by: WAN CHAVEZ Authorized by: WAN CHAVEZ ECG reviewed by ED Physician in the absence of a aoc director combat plans officer: yes Interpretation: Interpretation: abnormal Rate: ECG rate:57 [...] imminent or life-threatening deterioration of the following conditions:[facility] failure or compromise Critical care was time [...] CDT) Troponin <0.300 0.000 - 0.300 ng/mL [facility] DEPARTMENT OF Comment: PATHOLOGY AND 0.30 - 1.49 GENOMIC MEDICINE ng/mlMay indicate increased risk of acute coronary syndrome. >=1.5 ng/ml Consistent with acute myocardial infarction. The diagnostic value of a single normal or non-diagnostic result is questionable.Serial samples at 2-6 hour intervals are required to rule out acute myocardial injury. Specimen Plasma specimen Performing Organization Address City/State/Zipcode Phone Number [facility] [place] [address] [place] [address] PATHOLOGY AND GENOMIC MEDICINE * Comprehensive metabolic panel (03/14/2018 5:10 PM CDT) Sodium 142 135 - 148 mEq/L [facility] DEPARTMENT OF PATHOLOGY AND GENOMIC MEDICINE Potassium 3.9 3.5 - 5.0 mEq/L [facility] DEPARTMENT OF PATHOLOGY AND GENOMIC MEDICINE Chloride 104 98 - 112 mEq/L [facility] DEPARTMENT OF PATHOLOGY AND GENOMIC MEDICINE CO2 23 (L) 24 - 31 mEq/L [facility] DEPARTMENT OF PATHOLOGY AND GENOMIC MEDICINE Anion gap 15@ANIO 7 - 15 mEq/L [facility] DEPARTMENT OF PATHOLOGY AND GENOMIC MEDICINE BUN 19 8 - 23 mg/dL [facility] DEPARTMENT OF PATHOLOGY AND GENOMIC MEDICINE Creatinine 1.3 (H) 0.7 - 1.2 mg/dL [facility] DEPARTMENT OF PATHOLOGY AND GENOMIC MEDICINE Glucose 120 (H) 65 - 99 mg/dL [facility] DEPARTMENT OF PATHOLOGY AND GENOMIC MEDICINE Calcium 9.1 8.8 - 10.2 mg/dL [facility] DEPARTMENT OF PATHOLOGY AND GENOMIC MEDICINE Protein 7.4 6.3 - 8.3 g/dL [facility] DEPARTMENT OF Comment: PATHOLOGY AND GENOMIC MEDICINE 4.6-7.0 g/dL 1 week 4.4-7.6 g/dL 7 months-1year 5.1-7.3 g/dL 1-2 years5.6-7 .5 g/dL >3 years6.0-8 .0 g/dL 18-150 6.3-8.3 g/dL Albumin 4.3 3.5 - 5.0 g/dL [facility] DEPARTMENT OF PATHOLOGY AND GENOMIC MEDICINE A/G ratio 1.4 0.7 - 3.8 [facility] DEPARTMENT OF PATHOLOGY AND GENOMIC MEDICINE Alkaline phosphatase 54 40 - 129 U/L [facility] DEPARTMENT OF PATHOLOGY AND GENOMIC MEDICINE AST 27 10 - 50 U/L [facility] DEPARTMENT OF PATHOLOGY AND GENOMIC MEDICINE ALT 35 5 - 50 U/L [facility] DEPARTMENT OF PATHOLOGY AND GENOMIC MEDICINE Total bilirubin 0.3 0.0 - 1.2 mg/dL [facility] DEPARTMENT OF PATHOLOGY AND GENOMIC MEDICINE Specimen Plasma specimen Performing Organization Address City/State/Zipcode Phone Number [facility] [address] [place] [address] PATHOLOGY AND GENOMIC MEDICINE after 11/09/2017 Insurance Payer Benefit Subscriber ID Type Phone Address Plan / Group MEDICARE MEDICARE xxxxxxxxxxx Medicare [place], [place] PART A AND B WORKERS COMP MISC xxxx xxxxxxxx Workers WORKER'S Comp COMP Advance Directives Patient has advance care planning documents on file. For more information, ivan aldrich contact: Hung Mcgee [address] [place] [address]
[2018-11-10 12:28] LABS: BASOPHILS % 0.7 % (0.0-1.0); EOSINOPHILS % 0.7 % (0.0-6.0); HEMATOCRIT 33.6 % (38.2-49.6); HEMOGLOBIN 9.3 g/dL (14.0-18.0); LYMPHOCYTES % 21.1 % (18.0-39.1); MEAN CORPUSCULAR HEMOGLOBIN 23.5 pg (28-32); MEAN CORPUSCULAR HGB CONC 27.7 g/dL (31-35); MEAN CORPUSCULAR VOLUME 85.1 fL (81-99); MONOCYTES # (AUTO) 0.2 (0.2-0.8); MONOCYTES % 3.9 % (4.4-11.3); NEUTROPHILS # (AUTO) 3.3 (2.1-6.9); NEUTROPHILS % 73.2 % (38.7-80.0); PLATELET COUNT 214 x10e3/uL (140-360); RED BLOOD COUNT 3.95 x10e6/uL (4.3-5.7)
[2018-11-10 12:40] LABS: ALANINE AMINOTRANSFERASE 15 IU/L (0-55); ALBUMIN 3.4 g/dL (3.5-5.0); ALBUMIN/GLOBULIN RATIO 1.1 (0.8-2.0); ALKALINE PHOSPHATASE 42 IU/L (40-150); ANION GAP 9.8 mmol/L (8-16); BLOOD UREA NITROGEN 36 mg/dL (7-26); BUN/CREATININE RATIO 40 (6-25); CALCIUM 8.6 mg/dL (8.4-10.2); CARBON DIOXIDE 20 mmol/L (22-29); CHLORIDE 110 mmol/L (98-107); EST GLOMERULAR FILTRATION RATE > 60 ML/MIN (60-); GLUCOSE 175 mg/dL (74-118); POTASSIUM 3.8 mmol/L (3.5-5.1); SODIUM 136 mmol/L (136-145)
[2018-11-10 13:17] LABS: CLARITY,URINE TURBID (CLEAR); COLOR,URINE AMBER (YELLOW)
[2018-11-10 13:18] LABS: LEUKOCYTE ESTERASE ,URINE NEGATIVE (NEGATIVE); NITRITE,URINE NEGATIVE (NEGATIVE); PROTEIN,URINE DIPSTICK 2+ (NEGATIVE)
[2018-11-10 13:19] LABS: BILIRUBIN,URINE 1+ (NEGATIVE); KETONES,URINE TRACE (NEGATIVE); URINE UROBILINOGEN 0.2 mg/dL (0.2 - 1)
[2018-11-10 13:20] LABS: BACTERIA,URINE MANY /HPF; EPITHELIAL CELLS,URINE MODERATE /LPF; RBC,URINE >50 /HPF (0-5); WBC,URINE (MAN) 21-50 /HPF (0-5)
[2018-11-10 13:54] LABS: CREATINE KINASE MB 2.6 ng/mL (0-5.0)
[2018-11-10 15:13] VITALS: BP_SYST 5
[2018-11-10] MEDS ORDERED: AUGMENTIN 500-1 EACH PO (15:14)
== END 2018-11-10 15:20 | disposition home or self-care (01) ==
LOC: ER 11:19
DX: R31.0 Gross hematuria (principal); N30.91 Cystitis, unspecified with hematuria
CPT/HCPCS: 36415; 80053; 81001; 82550; 82553; 83735; 84484; 85025; 86850; 86900; 93005; 99283

== ENCOUNTER → 2018-11-30 | Outpatient (CLI) | payer MEDICARE ==
[~2018-11-30] MED LIST changes: +AUGMENTIN 500-1 EACH PO
--- NOTE | 2018-11-30 10:55 | Diagnostic Imaging Report ---
Examination: Fluoroscopic small bowel series. Clinical indication: Anemia. Comparison examination: CT abdomen and pelvis hematuria protocol 11/01/2018 Technique: Barium was ingested by mouth and multiple overhead and spot images of the small bowel were obtained. Fluoroscopy time: 0.4 minutes Air Kerma: 31.6 mGy Findings: Customs Verifier radiograph shows a nonobstructive bowel gas pattern. 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 No mass effect or organomegaly. Small bowel loops are normal in course, caliber, and distribution. Peristalsis, as observed under fluoroscopy, is normal. Transit time is normal. Spot compression views of the terminal ileum are normal. No evidence of fixed stricture or gross mass lesion. Impression: Unremarkable fluoroscopic small bowel series. Signed by: Dr. Ronal Acosta M.D. on 11/30/2018 10:51 AM
== END ==
LOC: DX 08:27
PROVIDERS: ATTEND Internal Medicine Gastroenterology
DX: D64.9 Anemia, unspecified (principal)
CPT/HCPCS: 74250

== ENCOUNTER → 2020-11-07 | Outpatient (CLI) | payer MEDICARE ==
[~2020-11-07] MED LIST changes: +ATORVASTATIN CA20 MG PO; +CLOPIDOGREL75 MG PO; +FINASTERIDE5 MG PO; +GLIMEPIRIDE2 MG PO; +LOSARTAN POTASS25 MG PO; +NEXIUM40 MG PO; +XARELTO20 MG PO
[2020-11-07 11:14] LABS: BASOPHILS % 0.6 % (0.0-1.0); EOSINOPHILS # (AUTO) 0.1 (0.0-0.4); EOSINOPHILS % 1.7 % (0.0-6.0); HEMATOCRIT 41.4 % (38.2-49.6); HEMOGLOBIN 13.1 g/dL (14.0-18.0); LYMPHOCYTES # (AUTO) 1.8 (1.0-3.2); LYMPHOCYTES % 33.7 % (18.0-39.1); MEAN CORPUSCULAR HEMOGLOBIN 27.3 pg (28-32); MEAN CORPUSCULAR HGB CONC 31.6 g/dL (31-35); MEAN CORPUSCULAR VOLUME 86.3 fL (81-99); MONOCYTES # (AUTO) 0.5 (0.2-0.8); MONOCYTES % 8.8 % (4.4-11.3); NEUTROPHILS # (AUTO) 2.9 (2.1-6.9); NEUTROPHILS % 54.8 % (38.7-80.0); PLATELET COUNT 200 x10e3/uL (140-360)
[2020-11-07 11:40] LABS: ALBUMIN 3.8 g/dL (3.5-5.0); ANION GAP 13.6 mmol/L (8-16); CALCIUM 8.9 mg/dL (8.4-10.2); CREATININE, SERUM 1.17 mg/dL (0.72-1.25); POTASSIUM 4.6 mmol/L (3.5-5.1)
== END ==
LOC: DX 16:11 → EDSTATUS 11-12 14:00
PROVIDERS: ATTEND Internal Medicine Interventional Cardiology
DX: Z01.812 Encounter for preprocedural laboratory examination (principal); Z20.822 Contact with and (suspected) exposure to COVID-19; I25.10 Atherosclerotic heart disease of native coronary artery without angina pectoris
CPT/HCPCS: 36415; 80053; 85025; U0002

== ENCOUNTER → 2020-12-10 | Day surgery (SDC) | payer MEDICARE ==
[2020-12-06 10:23] LABS: BASOPHILS # (AUTO) 0.1 (0.0-0.1); BASOPHILS % 0.9 % (0.0-1.0); EOSINOPHILS # (AUTO) 0.1 (0.0-0.4); EOSINOPHILS % 1.9 % (0.0-6.0); HEMATOCRIT 42.5 % (38.2-49.6); HEMOGLOBIN 13.5 g/dL (14.0-18.0); LYMPHOCYTES # (AUTO) 1.7 (1.0-3.2); LYMPHOCYTES % 29.7 % (18.0-39.1); MEAN CORPUSCULAR HEMOGLOBIN 27.8 pg (28-32); MEAN CORPUSCULAR HGB CONC 31.8 g/dL (31-35); MEAN CORPUSCULAR VOLUME 87.4 fL (81-99); MONOCYTES # (AUTO) 0.4 (0.2-0.8); MONOCYTES % 7.7 % (4.4-11.3); NEUTROPHILS # (AUTO) 3.4 (2.1-6.9); NEUTROPHILS % 59.3 % (38.7-80.0); PLATELET COUNT 210 x10e3/uL (140-360); RED BLOOD COUNT 4.86 x10e6/uL (4.3-5.7); RED CELL DISTRIBUTION WIDTH 15.8 % (11.7-14.4)
[2020-12-06 10:44] LABS: ALBUMIN 3.8 g/dL (3.5-5.0); ALBUMIN/GLOBULIN RATIO 1.1 (0.8-2.0); ANION GAP 11.9 mmol/L (8-16); CALCIUM 8.8 mg/dL (8.4-10.2); CREATININE, SERUM 1.26 mg/dL (0.72-1.25); POTASSIUM 4.9 mmol/L (3.5-5.1)
[~2020-12-10] VITALS: Ht 170.2 cm; Wt 81.6 kg
[~2020-12-10] MED LIST changes: +ALPRAZOLAM 0.5 MG TAB ONE; +DIPHENHYDRAMINE HCL 25 MG CAP ONE; +FENTANYL CITRATE/PF 100MCG/2 ML INJ ONE; +HEPARIN SOD (PORCINE) 1000 UNIT/ML 30ML ONE; +HEPARIN SOD/SOD CHLORIDE 2,000 ML ONE; +IOPAMIDOL 370 MG/ML 200 ML INFUS..BTL INJ ONE; +LIDOCAINE HCL 2% LOCAL 20 ML VIAL ONE; +MIDAZOLAM HCL 2 MG/2 ML VIAL ONE; +NITROGLYCERIN/D5W 200 MCG/ML 250 ML ONE; +SODIUM CHLORIDE 0.9% 1000ML 1,000 ML ONE; +VERAPAMIL HCL 2.5 MG/ML 2 ML VIAL ONE
[2020-12-10 13:00] VITALS: BP 127/81
[2020-12-10 13:15] VITALS: BP 123/78
[2020-12-10 13:31] VITALS: BP 125/77
[2020-12-10 13:45] VITALS: BP 121/73
[2020-12-10 14:00] VITALS: BP 129/80
[2020-12-10 14:15] VITALS: BP 129/80
== END | disposition home or self-care (01) ==
LOC: CATH LAB 10:38
PROVIDERS: ATTEND Internal Medicine Interventional Cardiology
DX: I25.119 Atherosclerotic heart disease of native coronary artery with unspecified angina pectoris (principal); R94.39 Abnormal result of other cardiovascular function study; Z79.02 Long term (current) use of antithrombotics/antiplatelets; Z79.84 Long term (current) use of oral hypoglycemic drugs
CPT/HCPCS: 36415; 76937; 80053; 83880; 85025; 93458; C1887; J1644; J2001; J2250; J3010; J7030; Q9967; 99152

== ENCOUNTER → 2022-02-03 | Day surgery (SDC) | payer MEDICARE ==
[2022-01-30 12:55] LABS: BASOPHILS % 0.7 % (0.0-1.0); EOSINOPHILS # (AUTO) 0.1 (0.0-0.4); EOSINOPHILS % 1.2 % (0.0-6.0); HEMATOCRIT 40.4 % (38.2-49.6); HEMOGLOBIN 12.5 g/dL (14.0-18.0); LYMPHOCYTES # (AUTO) 2.1 (1.0-3.2); LYMPHOCYTES % 35.8 % (18.0-39.1); MEAN CORPUSCULAR HEMOGLOBIN 26.9 pg (28-32); MEAN CORPUSCULAR HGB CONC 30.9 g/dL (31-35); MEAN CORPUSCULAR VOLUME 86.9 fL (81-99); MONOCYTES # (AUTO) 0.4 (0.2-0.8); MONOCYTES % 7.5 % (4.4-11.3); NEUTROPHILS # (AUTO) 3.2 (2.1-6.9); NEUTROPHILS % 54.3 % (38.7-80.0); PLATELET COUNT 230 x10e3/uL (140-360); RED BLOOD COUNT 4.65 x10e6/uL (4.3-5.7); RED CELL DISTRIBUTION WIDTH 15.7 % (11.7-14.4)
[2022-01-30 13:24] LABS: ALBUMIN 3.6 g/dL (3.5-5.0); ALBUMIN/GLOBULIN RATIO 0.9 (0.8-2.0); ANION GAP 12.4 mmol/L (8-16); CALCIUM 8.6 mg/dL (8.4-10.2); CREATININE, SERUM 1.4 mg/dL (0.72-1.25); POTASSIUM 4.4 mmol/L (3.5-5.1)
[2022-02-03] VITALS (9 sets, daily range): BP systolic 134–191; BP diastolic 81–103
[~2022-02-03] VITALS: Ht 170.2 cm; Wt 85.7 kg
[~2022-02-03] MED LIST changes: -HEPARIN SOD (PORCINE) 1000 UNIT/ML 30ML ONE; +IOPAMIDOL 370 MG/ML 100 ML INFUS..BTL INJ ONE; -IOPAMIDOL 370 MG/ML 200 ML INFUS..BTL INJ ONE; +LIDOCAINE HCL 1% LOCAL INJ 20 ML VIAL ONE; -LIDOCAINE HCL 2% LOCAL 20 ML VIAL ONE
== END | disposition home or self-care (01) ==
LOC: CATH LAB 11:46
PROVIDERS: ATTEND Internal Medicine Interventional Cardiology
DX: I25.119 Atherosclerotic heart disease of native coronary artery with unspecified angina pectoris (principal); R94.39 Abnormal result of other cardiovascular function study; I10 Essential (primary) hypertension; Z95.5 Presence of coronary angioplasty implant and graft; E11.9 Type 2 diabetes mellitus without complications; Z79.02 Long term (current) use of antithrombotics/antiplatelets; Z79.84 Long term (current) use of oral hypoglycemic drugs; Z79.899 Other long term (current) drug therapy
CPT/HCPCS: 36415; 76937; 80053; 85025; 93454; C1887; C1894; J2001; J2250; J3010; J7030; Q9967; U0002; 99152

== ENCOUNTER → 2025-03-06 | Outpatient (REF) | payer MEDICARE ==
[~2025-03-06] MED LIST changes: -ALPRAZOLAM 0.5 MG TAB ONE; -DIPHENHYDRAMINE HCL 25 MG CAP ONE; -FENTANYL CITRATE/PF 100MCG/2 ML INJ ONE; -HEPARIN SOD/SOD CHLORIDE 2,000 ML ONE; -IOPAMIDOL 370 MG/ML 100 ML INFUS..BTL INJ ONE; -LIDOCAINE HCL 1% LOCAL INJ 20 ML VIAL ONE; +METFORMIN HCL500 MG PO; -MIDAZOLAM HCL 2 MG/2 ML VIAL ONE; -NITROGLYCERIN/D5W 200 MCG/ML 250 ML ONE; -SODIUM CHLORIDE 0.9% 1000ML 1,000 ML ONE; -VERAPAMIL HCL 2.5 MG/ML 2 ML VIAL ONE
== END ==
LOC: DX 08:07
PROVIDERS: ATTEND Family Medicine
DX: K29.70 Gastritis, unspecified, without bleeding (principal); K21.9 Gastro-esophageal reflux disease without esophagitis
CPT/HCPCS: 74246